=== PATIENT | female | born 1950 | race Caucasian/White ===

== ENCOUNTER 2025-04-21 15:17 | Emergency (ER) | payer OTHER, SELFPAY ==
[2025-04-21 15:17] VITALS: BP 148/62; PULSE 112; RESP 20; TEMP 37; O2SAT 95
--- NOTE | 2025-04-21 15:21 | ED.FEMALEGU ---
HPI - Female Genitourinary General Chief complaint: Urogenital-Female Stated complaint: blood in urine Time Seen by Provider: 04/21/25 15:20 Source: patient Mode of arrival: EMS Limitations: no limitations History of Present Illness HPI Narrative: Patient is a 74-year-old female with blood in her urine twice today and sent to the ER for evaluation. Patient has variable stage renal failure and they are monitoring for needs of dialysis. She has had right renal cancer and a spot on the left kidney. No fever or chills. No nausea vomiting or diarrhea. No chest pain or shortness of breath. No abdominal pain. No new back pains beyond her baseline back pain. She is bed-bound from chronic back pain and bilateral knee arthritis. Patient was recently treated for UTI. MD elicited complaint: UTI (Blood in her urine x2 today) Pertinent past history: recurrent UTIs Onset (ago): day(s) (One) Location of symptoms: none Severity: mild (None) Female Urogenital Radiation: Non-Radiating Severity scale (1-10): 1 (0) Quality of pain: other (None) Consistency: other (None) Vaginal discharge: none Vaginal bleeding: none Urinary symptoms: Hematuria Exacerbating factors: none Relieving factors: none Associated symptoms: denies other symptoms Treatment prior to arrival: none Sexual activity: No Patient : No Related Data Allergies Allergy/AdvReac Type Severity Reaction Status Date / Time Iodinated Contrast Media Allergy Intermediate Hives Verified 04/21/25 15:28 ciprofloxacin (From Cipro) Allergy Mild Rash Verified 04/21/25 15:28 fentanyl Allergy Mild Drowsy Verified 04/21/25 15:28 Penicillins Allergy Mild Rash Verified 04/21/25 15:28 Review of Systems Review of Systems: All systems reviewed & are unremarkable except as noted in HPI and below Constitutional: Constitutional: Reports no additional constitutional complaints Eyes: Eyes: Reports no additional eye complaints ENT: Reports system reviewed and no additional complaints, except as documented Cardiovascular: Cardiovascular: Reports no additional cardiovascular complaints Respiratory: Respiratory: Reports no additional respiratory complaints Gastrointestinal: Gastrointestinal: Reports no additional gastrointestinal complaints Genitourinary: Genitourinary: Reports no additional female genitourinary complaints Musculoskeletal: Musculoskeletal: Reports no additional musculoskeletal complaints Integumentary/Breasts: Skin/Breast: Reports system reviewed and no additional complaints, except as docu Neurologic: Reports system reviewed and no additional complaints, except as documented Psychiatric: Psychiatric: Reports no additional psychiatric complaints Endocrine: Endocrine: Reports no additional endocrine complaints Hematologic/Lymphatic: Hematologic/Lymphatic: Reports no additional hematologic/lymphatic complaints Allergic/Immunologic: Allergic/Immunologic: Reports no additional allergic/immunologic complaints Exam Const: General: healthy appearing Nutritional Appearance: well nourished Orientation/consciousness: patient oriented x3 Limitations: no limitations HENMT: Head: normal to inspection Ears: external ears normal Face/Nose/Sinus: Normal external nose present Eyes: Conjunctivae: conjunctivae normal Pupils: Equal, round and reactive pupils present EOM: EOMs intact bilaterally Neck: Neck: normal visual inspection, no lymphadenopathy and no meningeal signs Chest: Chest palpation & inspection: normal inspection of the chest Resp: Effort & Inspection: normal respiratory effort and not labored Auscultation: clear to auscultation bilaterally and no crackles Cardio: Rate: regular rate Rhythm: regular rhythm Heart sounds: no murmurs GI: Inspection: non-distended GI Palp: Yes Soft to palpation and No Tenderness to palpation present (GI) Auscultation: normal bowel sounds : General: Yes bladder normal to palpation Back/Spine/Pelvis: Back: no CVA tenderness Skin: General skin exam: normal color Rashes: no rashes Wounds: no wounds Neuro: General: patient oriented x3, moves all extremities and no meningeal signs Extrem: General: normal to inspection, no clubbing, cyanosis or edema and no pedal edema Psych: Appearance: grossly normal and well kempt Mental Status: mental status grossly normal Course Vital Signs Vital signs: Vital Signs Temperature 37.0 C 04/21/25 15:17 Pulse Rate 112 H 04/21/25 15:17 Respiratory Rate 04/21/25 15:17 Blood Pressure 148/62 H 04/21/25 15:17 Pulse Oximetry 95 04/21/25 15:17 Oxygen Delivery Room Air 04/21/25 15:17 Temperature 37.0 C 04/21/25 15:17 Pulse Rate 112 H 04/21/25 15:17 Respiratory Rate 20 04/21/25 15:17 Blood Pressure 148/62 H 04/21/25 15:17 Pulse Oximetry 95 04/21/25 15:17 Oxygen Delivery Room Air 04/21/25 15:17 [facility] Narrative Medical decision making narrative: Patient is a 74-year-old female bed-bound and having renal disease now urinary blood x2 today. Labs. UA. Rocephin IM. Patient has been on Keflex without problem in the past; she does not cross react with penicillins. Keflex. Pending blood cultures and urine culture. Differential Diagnosis Differential Diagnosis: UTI, renal disease nephropathy Lab Data MDM Lab Attestation statement: I personally reviewed the patient's lab results. Lab results narrative: Patient has chronic renal insufficiency and likely associated anemia. 04/21/25 15:58 04/21/25 15:58 Labs: Lab Results 04/21/25 Range/Units 15:58 WBC 8.1 (4.8-10.8) K/mm3 RBC 3.36 L (4.20-5.40) M/mm3 Hgb 8.9 L (11.7-13.8) g/dL Hct 30.3 L (35.0-42.0) % MCV 90.2 (78.0-102.0) fL MCH 26.5 L (27.0-31.0) pg MCHC 29.4 L (32-36) g/dL RDW 16.7 H (11.6-14.4) % Plt Count 196 (150-420) K/mm3 MPV 9.4 (9.2-11.8) fl Immature Gran % (Auto) 0.6 H (0.0-0.0) % Neut % (Auto) 74.6 H (50.0-70.0) % Lymph % (Auto) 13.9 L (18.0-42.0) % Reeves % (Auto) 6.2 (2.0-11.0) % Eos % (Auto) 4.3 (1.0-6.0) % Baso % (Auto) 0.4 (0.0-1.0) % Lymph # (Auto) 1.12 (1.10-4.50) K/mm3 Reeves # (Auto) 0.50 (0.10-0.90) K/mm3 Eos # (Auto) 0.35 (0.02-0.50) K/mm3 Baso # (Auto) 0.03 (0.00-0.10) K/mm3 Abs Immat Gran (auto) 0.05 H (0.00-0.00) K/mm3 Absolute Neuts (auto) 6.03 (1.70-7.20) K/mm3 Absolute Nucleated RBC 0.00 (0.00-0.00) K/mm3 Nucleated RBC % 0.0 (0-0.0) % Sodium 144 (137-145) mmol/L Potassium 4.4 (3.4-5.0) mmol/L Chloride 100 (98-107) mmol/L Carbon Dioxide 33 H (22-30) mmol/L Anion Gap 11 (4-12) mmol/L BUN 30 H (7-17) mg/dL Creatinine 1.67 H (0.7-1.0) mg/dL Estim Creat Clear Calc 32 ml/min Estimated GFR 30 L (59 - ) Glucose 120 H (65-110) mg/dL Calculated Osmolality 305 H (285-295) mOsm/kg Lactic Acid 1.6 (0.7-2.0) mmol/L Calcium 9.8 (8.4-10.2) mg/dL Total Bilirubin 0.4 (0.2-1.3) mg/dL AST 22 (14-36) U/L ALT 21 (6-35) U/L Alkaline Phosphatase 160 H (38-126) U/L Total Protein 7.8 (6.3-8.2) g/dL Albumin 4.0 (3.5-5.1) g/dL Urine Color Light yellow (Yellow) Urine Appearance Sl cloudy A (Clear) Urine pH 6.0 (5.0-8.0) Ur Specific [place] <= 1.005 L (1.010-1.020) Urine Protein Negative (Negative) Urine Glucose (UA) Negative (Negative) Urine Ketones Negative (Negative) Ur Blood (Man) 2+ H (Negative) Urine Nitrate Negative (Negative) Urine Bilirubin Negative (Negative) Urine Urobilinogen 0.2 (0.2-1.0) mg/dL Leukocyte Esterase Rfl 3+ H (Negative) DAVID/UL Urine RBC 3-5 H (0-2) /hpf Urine WBC >75 H (0-3) /hpf Ur Squamous Epith Cells Few (Few) /hpf Urine Bacteria 3+ (None) /hpf Discharge Plan Discharge Clinical Impression: Urinary tract infection Qualifiers: Urinary tract infection type: acute cystitis Hematuria presence: with hematuria Qualified Code(s): N30.01 - Acute cystitis with hematuria Hematuria Qualifiers: Hematuria type: gross Qualified Code(s): R31.0 - Gross hematuria Patient Disposition: Home Condition: Stable Instructions: Antibiotic Form, Urinary Tract Infection in Women (ED), Hematuria (ED) Patient Language: Swazi Prescriptions: New cephalexin 500 mg capsule 500 mg PO BID 7 Days Qty: 14 0RF Follow-up/Referrals: Stewart Blankenship MD [Primary Care Provider, Internal Medicine] Time of Disposition: 16:50
--- OUTSIDE RECORDS SUMMARY | 2025-04-21 15:21 | XMS_ITS ---
Author Organization [facility] [place] Care Team Providers Care Transmission Maintenance Supervisor Name Role Phone Brayden Botello Unavailable Unavailable Theodora Lee Unavailable Unavailable Stewart Blankenship Unavailable Unavailable ashtyn Rosario Unavailable Unavailable Zain Betancur Unavailable Unavailable Bolivar Daily Unavailable Unavailable Harsha Olivera Unavailable Unavailable Blas, Emily Unavailable Unavailable Andre Scruggs Unavailable Unavailable Blair Yanez Unavailable UnavailBrock Lynn Unavailable Unavail able Ramakrishna Grimaldo Unavailable Unavailable Vish Chacko Unavailable Unavailable DarrellSarkis camejo Unavailable Unavailable Nate Navarro Abdelhamadis Unavailable Unavailable Allergies and adverse reactions Code CodeSystem Substance Reaction Severity StartDate Concern Status Cipro Unknown 03/13/2018 active contrast Unknown 03/13/2018 active 4337 RXNORM fentaNYL Mild 02/06/2025 active 7984 RXNORM Penicillin Unknown 03/13/2018 active 8640 RXNORM predniSONE Hallucinations (code- [id number], SNOMED CT) Moderate 12/11/2024 active Care Team Name Role Address Phone Organization Dates Stewart Blankenship PCP [address] [place], [address], [place] (Office): : [facility] 04/14/2018 - present Brayden Steen [facility] [address] [place], [address], [place] (Office): : [facility] [place] 04/14/2018 - present Theodora Lee [address], [place], [facility], [facility] (Office): : [facility] [place] 04/14/2018 - present ashtyn Rosario [address] [place] [address], [facility], [place] (Office): : [facility] [place] 04/14/2018 - present Zain Dupont [facility] [address], [place], [facility], [facility] (Office): [facility] 04/14/2018 - present Bolivar Daily [address] [place] [address], [facility], [place] (Office): : [facility] 04/14/2018 - present Harsha Olivera [address], [facility], [facility] (Cell): [facility] 04/14/2018 - present Emily Odonnell [address] [place] [address], [facility], [facility] (Office): [facility] 04/14/2018 - present Andre Scruggs [address] [facility] [address], [place], [address], [place] (Office): [facility] [place] 04/14/2018 - present Blair Yanez [address], [place], [address], [facility] (Office): : [facility] [place] 04/14/2018 - present Brock Kim [address], [place] (Office): : : [facility] [place] 04/14/2018 - present Ramakrishna Grimaldo [address], [place], [address], [place] (Office): : [facility] [place] 04/14/2018 - present Vish Chacko [address], [facility], [facility] (Office): [facility] [place] 04/14/2018 - present Sarkis Ramírez [address] [place], [place], [facility], [facility] (Office): [facility] [place] 04/14/2018 - present Nate Navarro [facility] [address] [place] [address], [address], [place] (Office): : [facility] [place] 04/14/2018 - present Encounters Encounter Type Code Code System Description Performer Discharge Disposition Service Delivery Location Date Ambulatory Encounter CPT Code = [id number] Chronic obstructive pulmonary disease [facility] Address: [address] [place] [address]. 04/14 Ambulatory Encounter CPT Code = [id number] Ventricular tachycardia [facility] Address: [address] [place] [address]. 04/14 Ambulatory Encounter CPT Code = [id number] Supraventricular tachycardia [facility] Address: [address] [place] [address]. 04/14 Ambulatory Encounter CPT Code = [id number] Generalized anxiety disorder [facility] Address: [address] [place] [address]. 04/14 Ambulatory Encounter CPT Code = [id number] Chronic kidney disease due to type 2 diabetes mellitus [facility] Address: [address] [place] [address]. 04/14 Ambulatory Encounter CPT Code = [id number] Morbid obesity [facility] Address: [address] [place] [address]. 04/14 Ambulatory Encounter CPT Code = [id number] Chronic kidney disease stage 4 [facility] Address: [address] [place] [address]. 04/14 Ambulatory Encounter CPT Code = [id number] Moderate major depression, single episode [facility] Address: [address] [place] [address]. 04/14 Ambulatory Encounter CPT Code = [id number] Recurrent depression [facility] Address: [address] [place] [address]. 04/14 Ambulatory Encounter CPT Code = [id number] Idiopathic peripheral autonomic neuropathy [facility] Address: [address] [place] [address]. 04/14 Ambulatory Encounter CPT Code = [id number] Pure hypercholesterolem ia [facility] Address: [address] [place] [address]. 04/14 Ambulatory Encounter CPT Code = [id number] Essential hypertension [facility] Address: [address] [place] [address]. 04/14 Ambulatory Encounter CPT Code = [id number] Hypochondriasis [facility] Address: [address] [place] [address]. 04/14 Ambulatory Encounter CPT Code = [id number] Body mass index 40+ - severely obese [facility] Address: [address] [place] [address]. 04/14 Ambulatory Encounter CPT Code = [id number] Idiopathic osteoarthritis [facility] Address: [address] [place] [address]. 04/14 Ambulatory Encounter CPT Code = [id number] Spinal stenosis of thoracic region [facility] Address: [address] [place] [address]. 04/14 Ambulatory Encounter CPT Code = [id number] Malingering [facility] Address: [address] [place] [address]. 04/14 Ambulatory Encounter CPT Code = [id number] Sedative, hypnotic AND/OR anxiolytic-related disorder [facility] Address: [address] 04/14 Ambulatory Encounter CPT Code = [id number] [facility] Address: [facility] [place] [address] 04/14 Ambulatory Encounter CPT Code = [id number] Urinary tract infectious disease [facility] Address: [facility] [place] [address] 04/14 Ambulatory Encounter CPT Code = [id number] Nausea and vomiting [facility] Address: [facility] [place] [address] 04/14 Ambulatory Encounter CPT Code = [id number] Degeneration of lumbar intervertebral disc [facility] Address: [address] [place], [place] [address] [address] 04/14 Ambulatory Encounter CPT Code = [id number] Imaging of lung [facility] Address: [facility] [place] [address] 04/14 Ambulatory Encounter CPT Code = [id number] Solitary nodule of lung [facility] Address: [facility] [place] [address] 04/14 Ambulatory Encounter CPT Code = [id number] Dependence on supplemental oxygen [facility] Address: [facility] [place] [address] 04/14 Ambulatory Encounter CPT Code = [id number] Disorder of bone [facility] Address: [facility] [place] [address] 04/14 Ambulatory Encounter CPT Code = [id number] Body mass index 30+ - obesity [facility] Address: [address] [place], [place] [address] [address] 04/14 Ambulatory Encounter CPT Code = [id number] Localized, primary osteoarthritis of the shoulder region [facility] Address: [address] [place], [place] [address] [address] 04/14 Ambulatory Encounter CPT Code = [id number] Localized, primary osteoarthritis of the shoulder region [facility] Address: [address] [place], [place] [address] 04/14 Ambulatory Encounter CPT Code = [id number] Late effect of fracture of thoracic vertebra [facility] Address: [address] [place], [place] [address] 04/14 Ambulatory Encounter CPT Code = [id number] Thoracic spondylosis without myelopathy [facility] Address: [address] [place], [place] [address] 04/14 Ambulatory Encounter CPT Code = [id number] Degeneration of thoracic intervertebral disc [facility] Address: [address] [place], [place] [address] [address] 04/14 Ambulatory Encounter CPT Code = [id number] Urinary tract infectious disease [facility] Address: [address] [place], [place] [address] 04/14 Ambulatory Encounter CPT Code = [id number] Long-term current use of insulin [facility] Address: [facility] [place] [address] 04/14 Ambulatory Encounter CPT Code = [id number] Iron deficiency anemia [facility] Address: [facility] [place] [address] , [place]. 04/14 Ambulatory Encounter CPT Code = [id number] [place] [facility]ie [facility] Address: [facility] [place] [address] 04/14 Ambulatory Encounter CPT Code = [id number] Muscle weakness Cathie [facility] Address: [address] [place], [place] [address] [address] 04/14 Ambulatory Encounter CPT Code = [id number] Acute bronchitis [facility] Address: [address] [place], [place] [address] [address] 04/14 Ambulatory Encounter CPT Code = [id number] Chronic obstructive pulmonary disease [facility] Address: [address] [place], [place] [address] [address] 04/14 Ambulatory Encounter CPT Code = [id number] Muscle atrophy [facility] Address: [facility] [place] [address] 04/14 Ambulatory Encounter CPT Code = [id number] Abnormal posture Cathie [facility] Address: [facility] [place] [address] 04/14 Ambulatory Encounter CPT Code = [id number] Muscle weakness Cathie [facility] Address: [facility] [place] [address] 04/14 Ambulatory Encounter CPT Code = [id number] Muscle atrophy [facility] Address: [facility] [place] [address] 04/14 Ambulatory Encounter CPT Code = [id number] Complication due to diabetes mellitus [facility] Address: [facility] [place] [address] 04/14 Ambulatory Encounter CPT Code = [id number] Cellulitis of right lower limb Cathie [facility] Address: [facility] [place] [address] 04/14 Ambulatory Encounter CPT Code = [id number] Muscle strain [facility] Address: [facility] [place] [address] 04/14 Ambulatory Encounter CPT Code = [id number] Abnormal posture Cathie [facility] Address: [facility] [place] [address] 04/14 Ambulatory Encounter CPT Code = [id number] Abnormal posture [facility] Address: [facility] [place] [address] 04/14 Ambulatory Encounter CPT Code = [address] Depressive disorder [facility] Address: [facility] [place] [address] 04/14 Ambulatory Encounter CPT Code = [id number] Pneumonia Cathie [facility] Address: [facility] [place] [address] 04/14 Ambulatory Encounter CPT Code = [id number] Abnormal posture Cathie [facility] Address: [facility] [place] [address] 04/14 Ambulatory Encounter CPT Code = [id number] Muscle weakness Cathie [facility] Address: [facility] [place] [address] 04/14 Ambulatory Encounter CPT Code = [id number] Lobar pneumonia Cathie [facility] Address: [facility] [place] [address] 04/14 Ambulatory Encounter CPT Code = [id number] Abnormal posture Cathie Johnson [facility] Address: [address] [address] 04/14 Ambulatory Encounter CPT Code = [id number] Muscle atrophy Cathie [facility] Address: [address] [address] 04/14 Ambulatory Encounter CPT Code = [id number] Abscess of limb Cathie [facility] Address: [facility] [place] [address] 04/14 Ambulatory Encounter CPT Code = [id number] Muscle atrophy Cathie [facility] Address: [facility] [place] [address] 04/14 Goals Section Goals Description Status Target Date Marleny will verbalize unde rstanding of consequences of non-compliance through review date Active 05/27/2025 Marleny wishes will be honored thru next review Active 05/27/2025 Marleny to receive rosary and communion in room with volunteers. Active 05/27/2025 Marleny will be encouraged to adhere to prescribed CCHO diet to help avoid complications r/t DX of Diabetes. Active Marleny will be free of any discomfort or adverse side effects of antibiotic therapy through the review date. Active 05/27/2025 Marleny will be free of any discomfort or adverse side effects of diuretic therapy through the next review date Active 05/27/19 Marleny will be free of any discomfort or adverse side effects of diuretic therapy through the review date. Active 05/27/2025 Marleny will comply with ca re to the best of her ability at least daily through the next review date Active 05/27/2025 Marleny will continue to ma intain optimal status and quality of life within limitations imposed by neurological deficits through review date. Active 05/27/2025 Marleny will decrease bladd er incontinence from 10 to 7 times per week Active 05/27/2025 Marleny will express satisf action with type of activities and level of activity involvement when asked through the review date. Active 05/27/2025 Marleny will have intact skin through next revi ew Active 05/27/2025 Marleny will have no problems chewing through r warren. Active 05/27/2025 Marleny will maintain accep table quality of life through next review Active 05/27/2025 Marleny will maintain optim al quality of life within limitation imposed by visual function through review date. Active 2025 Marleny will not develop fu rther complications from weight gain such as skin breakdown, ineffective breathing pattern, altered cardiac output, impaired mobility through review date. Active 05/27/2025 Marleny will participate in activities she find s enjoyable Active 05/27/2025 Marleny will participate in independent daily activities of her choosing and monthly [place] through the next review. Marleny will be offered monthly [employer] [place]. Active 2025 Marleny will receive servic es as directed per screening requirements through the next review Active 05/27/2025 Marleny will remain free fr om any adverse side effects from antidepressant use through next review Active 05/27/2025 Marleny will remain free of potential adverse reactions from medication through next review Active 05/27/2025 Marleny will remain free of s/sx of distress, symptoms of depression, anxiety or sad mood by/through review date. Active 05/27/2025 Marleny will verbalize adeq uate pain relief of pain or ability to cope with incompletely relieved pain through next review Active 05/27/2025 Marleny will voice feelings of loss of control and comply with care with encouragement. Active 05/27/2025 Attend resident [place] once month. Active 05/27/2025 Decrease risk of fall and/or minimize injuries from falls X 90 days Active 05/27/2025 Minimize risk for skin breakdown through next re view date. Active 05/27/2025 Minimize/manage risk for falls Active 0 05/27/2025 Resident will be clean, dry, well-groomed throug h review date Active 05/27/2025 Resident will comply with staff redirection thru next review. Active 05/27/2025 Resident will maintain safety thru next review. Active 05/27/2025 Will adjust to facility as e videnced by coming out of room thru next review Active 05/27/2025 Functional Status Code Name Recorded Time Value Entered By Bathing 04/20/2025 Not assessed hgarrison Chair/dae-po-rokth transfer 04/21/2025 Dependent aondo Eating 04/21/2025 Supervision or t ouching assistance aondo Feeding or Eating 04/21/2025 Supervision aondo Indicate the type of wheelchair or scooter used 04/21/2025 Not assessed aondo Lying to sitting on side of bed 04/21/2025 Not assessed aondo Oral hygiene 04/21/2025 Setup or clean-up assistance aondo Personal hygiene 04/21/2025 Dependent aondo Roll left and right 04/21/2025 Dependent aondo Shower/bathe self 04/20/2025 Not assessed hgarrison Sit to lying 04/21/2025 Not assessed aondo Sit to stand 04/21/2025 Not assessed aondo Toilet transfer 04/21/2025 Not assessed aondo Toileting hygiene 04/21/2025 Dependent aondo Wheel 150 feet 04/21/2025 Not assessed aondo Immunizations Immunization Status Vaccine Details Vaccine Code CodeSystem Date Notes Influenza completed Influenza, high-dose, split virus, quadrivalent, injectable, preservative free lotNumber: [id number] expiry: 10/22/2025 Mfg: Fluzone Given Left Deltoid intramuscularly 197 CVX created date: 5 consent date: 5 administe red date: 5 Influenza completed Influenza, high-dose, split virus, quadrivalent, injectable, preservative free lotNumber: [id number] expiry: 10/23/2023 Mfg: SANOFI PASTEUR Given 0.5 ml Left Deltoid intradermally 197 CVX created date: 3 consent date: 3 administe red date: 3 Influenza completed Influenza, high-dose, split virus, quadrivalent, injectable, preservative free lotNumber: [id number] expiry: 10/22/2022 Mfg: SAN0FI PASTEUR Given 0.5 ml Left Deltoid intramuscularly 197 CVX created date: 2 consent date: 2 administe red date: 2 Administered by Cathie Johnson RNLNHA Influenza completed Influenza, high-dose, split virus, quadrivalent, injectable, preservative free lotNumber: [id number] expiry: 10/22/2021 Mfg: sanofi pasteur Given 0.5 ml Left Deltoid intramuscularly 197 CVX created date: 1 consent date: 1 administe red date: 1 Educated by Violet Land on 02/09/2021 Influenza completed Influenza, high-dose, split virus, quadrivalent, injectable, preservative free lotNumber: [id number] expiry: 10/22/2020 Mfg: FLUZONE QUAD Given 0.5 ml Right Deltoid intramuscularly 197 CVX created date: 0 consent date: 0 administe red date: 0 Influenza completed Influenza, high-dose, split virus, quadrivalent, injectable, preservative free lotNumber: [id number] expiry: 10/23/2019 Mfg: Sequirs Given 0.5 ml Left Deltoid intramuscularly 197 CVX created date: 9 consent date: 9 administe red date: 9 TB 1 Step Mantoux (PPD) completed tuberculin skin test; unspecified formulation lotNumber: [id number] expiry: 03/31/2020 Given 0.1 ml Left Forearm subcutaneously 98 CVX created date: 8 consent date: 8 administe red date: 8 TB 1 Step Mantoux (PPD) completed tuberculin skin test; unspecified formulation lotNumber: [id number] expiry: 03/31/2020 Mfg: Sanofi Pasteur [employer] Given 0.1 ml Right Forearm intradermally 98 CVX created date: 8 consent date: 8 administe red date: 8 Educated by Carmita Almaguer on 03/14/2018 TB 2 Step Mantoux Skin Test completed tuberculin skin test; unspecified formulation lotNumber: [id number] expiry: 06/08/2020 Mfg: mantoux Given 0.1 ml Right Forearm intradermally Step 2 of Multi-step with next step required 98 CVX created date: 9 consent date: 9 administe red date: 9 TB 2 Step Mantoux Skin Test completed tuberculin skin test; unspecified formulation lotNumber: [id number] expiry: 03/31/2020 Mfg: Sanofi Pasteur [employer] Given 0.1 ml Right Forearm intradermally Step 1 of Multi-step with next step required 98 CVX created date: 8 consent date: 8 administe red date: 8 Educated by Carmita Almaguer on 03/28/2018 Pneumococcal polysaccharide vaccine (PPSV23) completed pneumococcal polysaccharide vaccine, 23 valent 33 CVX created date: 8 administe red date: 8 COVID Pre-Vaccine Consent new created date: 0 consent date: 0 SARS-COV-2 (COVID-19) completed lotNumber: [id number] Given Right Deltoid intramuscularly Step 2 of Multi-step with next step required created date: 1 consent date: 1 administe red date: 1 [facility] came and gave the vaccine SARS-COV-2 (COVID-19) completed Given intramuscularly Step 1 of Multi-step with next step required created date: 1 consent date: 1 administe red date: 1 [facility] here and administered. Tdap completed tetanus toxoid, reduced diphtheria toxoid, and acellular pertussis vaccine, adsorbed lotNumber: [id number] expiry: 05/15/2021 Given 0.5 ml Right Thigh intramuscularly 115 CVX created date: 1 consent date: 1 administe red date: 1 SARS-COV-2 (COVID-19) - Booster completed SARS-COV-2 (COVID-19) vaccine, mRNA, spike protein, LNP, preservative free, 100 mcg/0.5mL dose or 50 mcg/0.25mL dose lotNumber: [id number] expiry: 06/22/2021 Mfg: pfizer Given 0.3 Left Deltoid intramuscularly 207 CVX created date: 1 consent date: 1 administe red date: 1 Administered by Cathie CHEN SARS-COV-2 (COVID-19) - Pfizer Booster completed SARS-COV-2 (COVID-19) vaccine, mRNA, spike protein, LNP, preservative free, 30 mcg/0.3mL dose lotNumber: [id number] expiry: 12/29/2021 Mfg: pfizer Given 0.3 ml Left Deltoid intramuscularly 208 CVX created date: 2 consent date: 2 administe red date: 2 Administered by Cathie CHEN Prevnar 20 completed Pneumococcal conjugate vaccine 20-valent (PCV20), polysaccharide [id number] conjugate, adjuvant, preservative free lotNumber: [id number] expiry: 12/23/2022 Given 0.5 ml Right Deltoid intramuscularly 216 CVX created date: 3 consent date: 3 administe red date: 3 SARS-COV2 (COVID-19 w [employer]) Pfizer Booster completed SARS-COV-2 (COVID-19) vaccine, mRNA, spike protein, LNP, bivalent, preservative free, 30 mcg/0.3 mL dose, suzie-sucrose formulation lotNumber: [id number] expiry: 05/24/2022 Mfg: pfizer bivalent Given 0.3 ml Left Deltoid intramuscularly 300 CVX created date: 2 consent date: 2 administe red date: 2 Administered by Ctahie CHEN SARS-COV-2 (COVID-19) Updated monovalent completed SARS-COV-2 (COVID-19) vaccine, mRNA, spike protein, LNP, preservative free, suzie-sucrose, 30 mcg/0.3 mL dose lotNumber: [id number] expiry: 08/11/2024 Mfg: pfizer booster Given 0.5 ml Left Deltoid intramuscularly 309 CVX created date: 4 consent date: 4 administe red date: 4 SARS-COV-2 (COVID-19) Updated monovalent completed SARS-COV-2 (COVID-19) vaccine, mRNA, spike protein, LNP, preservative free, suzie-sucrose, 30 mcg/0.3 mL dose lotNumber: [id number] expiry: 09/23/2023 Mfg: Comirnaty Given 0.5 ml Left Deltoid intramuscularly 309 CVX created date: 3 consent date: 3 administe red date: 3 RSV completed Respiratory syncytial virus (RSV), vaccine, recombinant, protein subunit RSV prefusion F, adjuvant reconstituted, 0.5 mL, preservative free Mfg: arexvy Given 0.5 ml intramuscularly 303 CVX created date: 4 consent date: 4 administe red date: 4 Influenza vaccine, quadrivalent, adjuvanted completed Influenza, adjuvanted, inactivated, quadrivalent, injectable, preservative free lotNumber: [id number] expiry: 10/22/2024 Mfg: [employer] Given 0.5 ml Left Deltoid intramuscularly 205 CVX created date: 4 consent date: 4 administe red date: 4 Medications Section Medication Name Status Code CodeSystem Dose Route Frequency Admin Type Sig Text Start Date End Date Indication Loradamed Oral Tablet 10 MG active 58963 26 RXNORM 1 table t Oral in the morning Routin e Give 1 table t by mouth in the morni ng for aller gies 2024 - allergies Insulin Glargine Subcutaneou s Solution Pen-injecto r 100 UNIT/ML active 64019 0 RXNORM 55 unit Subcut aneous at bedtime Routin e Injec t 55 unit subcu taneo usly at bedti me relat ed to 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 22) 2024 - - Potassium Chloride ER Oral Tablet Extended Release active 80 mEq Oral two times a day Routin e Give 80 mEq by mouth two times a day relat ed to OTHER VENTR ICULA R SUKUMAR Miller (I47. 29) 2024 - - Zinc Gluconate Oral Tablet 50 MG active 21471 7 RXNORM 1 table t Oral in the morning Routin e Give 1 table [facility] 2024 - supplement Fluocinonid e External Cream 0.05 % active 79964 6 RXNORM n/a n/a Topica l every day shift Routin e Apply to scalp topic ally every day shift for derma titis 2024 - dermatitis Docusate Sodium Oral Capsule 100 MG active 04887 05 RXNORM 4 capsu le Oral at bedtime Routin e Give 4 capsu le by mouth at bedti me for const ipati on 2024 - constipatio n Protonix Oral Tablet Delayed Release 40 MG active 73176 0 RXNORM 1 table t Oral in the morning Routin e Give 1 table t 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 9) 2024 - - Lidocaine-T ransparent Dressing External Kit 4 % active 68236 93 RXNORM n/a n/a Topica l at bedtime Routin e Apply to L knee topic ally at bedti me for knee pain 2024 - knee pain Benzonatate Oral Capsule 100 MG active 15660 7 RXNORM 1 capsu le Oral as needed PRN Give 1 capsu le by mouth every 8 hours as neede d for cough 2024 - cough Abilify Oral Tablet 10 MG active 26516 7 RXNORM 1 table t Oral in the morning Routin e Give 1 table t by mouth in the [facility] to GENER JOSELYN D ANXIE TY DISOR AILYN (F41. 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 Routin e Apply to vagin a topic ally every manufacturing supervisor 2nd shift for acne vulga ris 2024 - acne vulgaris traZODone HCl Oral Tablet 50 MG active 24741 7 RXNORM 1 table t Oral at bedtime Routin e Give 1 table t by mouth at bedti vt for insom elias 2024 - insomnia Vitamin D3 Oral Tablet 25 MCG active 1 table t Oral in the morning Routin e Give 1 table t by mouth in the [facility] for suppl ement 2024 - supplement Saccharomyc es boulardii Oral Capsule active 250 mg Oral two times a day Routin e Give 250 mg by mouth two times a day for probi otic 2024 - probiotic Methocarbam ol Oral Tablet 750 MG active 67229 4 RXNORM 1 table t Oral as needed PRN Give 1 table t by mouth every 8 hours as neede d for muscl e spasm s 2024 - muscle spasms Trelegy Ellipta Inhalation Aerosol Powder Breath Activated 100-62.5-25 MCG/ACT active 78754 44 RXNORM 1 inhal ation Inhala tion in the morning Routin e 1 inhal ation inhal e orall y in the [facility] for SOB 2024 - SOB Ondansetron HCl Oral Tablet 4 MG active 2 RXNORM 1 table t Oral as needed PRN Give 1 table t by mouth every 6 hours as neede d for nause a/vom iting 2024 - nausea/vomi ting CeleXA Oral Tablet 10 MG active 88617 1 RXNORM 1 table t Oral in the morning Routin e Give 1 table t by mouth in the [facility] relat ed to OTHER RECUR RENT DEPRE SSIVE DISOR DERS (F33. 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) 2024 - - Magnesium Oxide -Mg Supplement Oral Tablet 200 MG active 84006 3 RXNORM 1 table t Oral two times a day Routin e Give 1 table t by mouth two times a day for suppl ement 2024 - supplement Vitamin C Oral Tablet 1000 MG active 1.5 table t Oral in the morning Routin e Give 1.5 table t by mouth in the [facility] for suppl ement 2024 - supplement Insulin Aspart Injection Solution 100 UNIT/ML active 62569 0 RXNORM 20 unit Subcut aneous before meals Routin e Injec t 20 unit subcu taneo usly befor e meals relat ed to 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 22) 2024 - - Montelukast Sodium Oral Tablet 10 MG aborted 4 RXNORM 1 table t Oral in the morning Routin e Give 1 table t by mouth in the [facility] for asthm a 04/02 asthma Albuterol Sulfate HFA Inhalation Aerosol Solution 108 (90 Base) MCG/ACT active 27861 2 RXNORM 2 puff Inhala tion two times a day Routin e 2 puff inhal e orall y two times a day for SOB AND 1 puff inhal e orall y every 4 hours as neede d for SOB 2024 - SOB 06764 2 RXNORM 1 puff Inhala tion as needed PRN 2 puff inhal e orall y two times a day for SOB AND 1 puff inhal e orall y every 4 hours as neede d for SOB 2024 - SOB Macrobid Oral Capsule [place] [address] 2 RXNORM 100 mg Oral two times a day Routin e Give 100 mg by mouth two times a day for UTI for 10 Days 03/29 UTI MiraLax Oral Packet 17 GM aborted 64947 5 RXNORM 17 gram Oral as needed PRN Give 17 gram by mouth every 24 hours as neede d for Const ipati on 04/03 Constipatio n Acetaminoph en Tablet [place] [address] 2 RXNORM 2 table t Oral as needed PRN Give 2 table t by mouth every 4 hours as neede d for pain for 7 Days 03/31 pain Nitrofurant oin Macrocrysta l Oral Capsule complet ed 100 mg Oral two times a day Routin e Give 100 mg by mouth two times a day for UTI for 5 Days 04/04 UTI Montelukast Sodium Oral Tablet 10 MG active 4 RXNORM 1 table t Oral at bedtime Routin e Give 1 table t by mouth at bedti me for asthm a 2024 - asthma MiraLax Oral Packet 17 GM aborted 29932 5 RXNORM 17 gram Oral as needed PRN Give 17 gram by mouth as neede d for to avoid const ipati on 04/04 to avoid constipatio n MiraLax Oral Packet 17 GM active 46627 5 RXNORM 17 gram Oral in the morning Routin e Give 17 gram by mouth in the morni ng for Const ipati on 2024 - Constipatio n Fleet Enema Rectal Enema active 1 dose Rectal as needed PRN Inser t 1 dose recta lly every 24 hours as neede d for const ipati on 2024 - constipatio n Lidocaine External Patch active n/a n/a Topica l as needed PRN Apply to [facility] [place] topic ally every 24 hours as neede d for pain may be on up to 12 hours in 24 Hour perio d 2024 - pain Acetaminoph en Tablet 325 MG active 30427 2 RXNORM 2 table t Oral as needed PRN Give 2 table t by mouth every 4 hours as neede d for pain no more than 3 grams in any 24 hour perio d 2024 - pain Cranberry Oral Tablet 500 MG active 1 table t Oral in the morning Routin e Give 1 table t by mouth in the morni ng for suppl ement 2024 - supplement Mental Status Section Date Assessment Total Score Description 02/25/2025 BIMS 15 cognitively int act CAM 0 No delirium ind icated PHQ-9 11 moderate depres norma 01/30/2025 CAM 0 No delirium ind icated Insurance Providers Coverage Status Coverage Type Relationship to Subscriber Member Identifier Subscriber Identifier Group Identifier Payer Identifier and Other information 05/26/2021 Code: 2 Code System OID:[id number]. [id number] 1.5 Code System Name: Source of Payment Typology (PHDSC) Display: Medicaid Translation: Code: 48 Code System: OID:[id number]. 1.306961.6.25 5.1336 Code System Name: Insurance Type Code ([id number]) Display Name: Medicaid Code: SELF Code System Name: HL7 RoleCode Code System OID:[id number]. 1.025777.5.11 1 Display Name: Self [id number] Root: [id number] [id number] Payer Name: [facility] Address: [address] [address] City: [place] State: [place] Country: [place] Telecom: [phone] Code: 81 Code System OID:[id number]. 1.044507.3.22 1.5 Code System Name: Source of Payment Typology (PHDSC) Display: Self Pay Translation: Code: 09 Code System: OID:2.16.840. 1.768019.6. Code System Name: Insurance Type Code ([id number]) Display Name: Self-pay 05/26/2021 Code: 51 Code System OID:2.16.840. 1.801646.3.22 1.5 Code System Name: Source of Payment Typology (PHDSC) Display: Managed Care (Private) Translation: Code: HM Code System: OID:2.16.840. 1.100694.6. Code System Name: Insurance Type Code ([id number]) Display Name: Health Maintenance Organization (HMO) Plan Code: SELF Code System Name: HL7 RoleCode Code System OID:2.16.840. 1.137745.5.11 1 Display Name: Self [id number] Root: [id number] [id number] Payer Name: [facility] Address: [address] [address] City: [place] State: [place] Country: [facility] Telecom: [phone] Code: 349 Code System OID:2.16.840. 1.188902.3.22 1.5 Code System Name: Source of Payment Typology (PHDSC) Display: Other Translation: Code: C1 Code System: OID:2.16.840. 1.022966.6. Code System Name: Insurance Type Code ([id number]) Display Name: Commercial Insurance 01/22/2025 Code: 1 Code System OID:2.16.840. 1.925088.3.22 1.5 Code System Name: Source of Payment Typology (PHDSC) Display: Medicare Translation: Code: MB Code System: OID:2.16.840. 1.145504.6. Code System Name: Insurance Type Code ([id number]) Display Name: Medicare Part B Code: SELF Code System Name: HL7 RoleCode Code System OID:2.16.840. 1.579391.5.11 1 Display Name: Self [id number] Root: [id number] f2d Payer Name: [facility] Address: [address] [facility] City: [place] State: [place] Country: [place] Telecom: [phone] Plan of Treatment Section Interventions Intervention Code Code System Display Name Proposed D ate Problems Problem # Description Date of onset Resolved Date Code CodeSystem Concern Status 1 MAJOR DEPRESSIVE DISORDER, SINGLE EPISODE, MODERATE [address] active 2 INSOMNIA, UNSPECIFIED [address] active 3 MALINGERER [CONSCIOUS SIMULATION] [address] active 4 URINARY TRACT INFECTION, SITE NOT SPECIFIED 025 12/24/[address] completed 5 SEDATIVE, 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 [address] active 6 SPINAL STENOSIS, THORACIC REGION [address] active 7 HYPOCHONDRIASIS [address] active 8 NAUSEA WITH VOMITING, UNSPECIFIED 025 07/11/[address] completed 9 OTHER INTERVERTEBRAL DISC DEGENERATION, LUMBAR REGION WITH DISCOGENIC BACK PAIN AND LOWER EXTREMITY PAIN [address] active 10 OTHER NONSPECIFIC ABNORMAL FINDING OF LUNG FIELD [address] active 11 SOLITARY PULMONARY NODULE [address] active 12 DEPENDENCE ON SUPPLEMENTAL OXYGEN [address] active 13 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 [address] active 14 OTHER SPECIFIED DISORDERS OF BONE DENSITY AND STRUCTURE, MULTIPLE SITES [address] active 15 OTHER VENTRICULAR TACHYCARDIA [address] active 16 CUTANEOUS ABSCESS OF LIMB, UNSPECIFIED 023 02/24/[address] completed 17 FURUNCLE OF LIMB, UNSPECIFIED 023 02/24/[address] completed 18 BODY MASS INDEX [BMI] 38.0-38.9, ADULT [address] active 19 PURE HYPERCHOLESTEROLEM IA, UNSPECIFIED [address] active 20 OTHER INTERVERTEBRAL DISC DEGENERATION, THORACIC REGION [address] active 21 PRIMARY OSTEOARTHRITIS, LEFT SHOULDER [address] active 22 PRIMARY OSTEOARTHRITIS, RIGHT SHOULDER [address] active 23 SPONDYLOSIS WITHOUT MYELOPATHY OR RADICULOPATHY, THORACIC REGION [address] active 24 WEDGE COMPRESSION FRACTURE OF UNSPECIFIED THORACIC VERTEBRA, SEQUELA [address] active 25 PERSONAL HISTORY OF URINARY (TRACT) INFECTIONS [address] active 26 ABNORMAL POSTURE 022 06/09/[address] completed 27 DEPRESSION, UNSPECIFIED 021 06/09/[address] completed 28 PNEUMONIA, UNSPECIFIED ORGANISM 021 04/01/[address] completed 29 ABNORMAL POSTURE 021 01/01/[address] completed 30 MUSCLE WEAKNESS (GENERALIZED) 021 01/01/[address] completed 31 BODY MASS INDEX [BMI]40.0-44.9, ADULT 020 12/02/[address] completed 32 ABNORMAL POSTURE 020 10/05/[address] completed 33 MUSCLE WASTING AND ATROPHY, NOT ELSEWHERE CLASSIFIED, UNSPECIFIED SITE 020 10/05/[address] completed 34 MUSCLE WEAKNESS (GENERALIZED) 020 10/05/[address] completed 35 TYPE 2 DIABETES MELLITUS WITH DIABETIC CHRONIC KIDNEY DISEASE [address] active 36 CHRONIC KIDNEY DISEASE, STAGE 4 (SEVERE) [address] active 37 CHRONIC OBSTRUCTIVE PULMONARY DISEASE, UNSPECIFIED [address] active 38 LOBAR PNEUMONIA, UNSPECIFIED ORGANISM 10/10/[address] completed 39 LONG-TERM (CURRENT) USE OF INSULIN 009420973 SNOMED CT active 40 OTHER IRON DEFICIENCY ANEMIAS 67019213 SNOMED CT active 41 SUPRAVENTRICULAR TACHYCARDIA 01/23/[address] completed 42 MUSCLE WASTING AND ATROPHY, NOT ELSEWHERE CLASSIFIED, UNSPECIFIED SITE 04/10/[address] completed 43 ABNORMAL POSTURE 03/06/[address] completed 44 MUSCLE WASTING AND ATROPHY, NOT ELSEWHERE CLASSIFIED, UNSPECIFIED SITE 03/06/[address] completed 45 ACUTE BRONCHITIS DUE TO OTHER SPECIFIED ORGANISMS 07/18/[address] completed 46 ABNORMAL POSTURE 07/25/[address] completed 47 MUSCLE WASTING AND ATROPHY, NOT ELSEWHERE CLASSIFIED, UNSPECIFIED SITE 07/18/[address] completed 48 MUSCLE WEAKNESS (GENERALIZED) 07/18/[address] completed 49 CELLULITIS OF RIGHT LOWER LIMB 07/18/[address] completed 50 CHRONIC OBSTRUCTIVE PULMONARY DISEASE, UNSPECIFIED 07/04/[address] completed 51 ESSENTIAL (PRIMARY) HYPERTENSION 89016470 SNOMED CT active 52 GENERALIZED ANXIETY DISORDER 89081891 SNOMED CT active 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 45943299 SNOMED CT active 54 OTHER RECURRENT DEPRESSIVE DISORDERS 02/08/[address] completed 55 PRIMARY GENERALIZED (OSTEO)ARTHRITIS 938991014 SNOMED CT active 56 STRAIN OF MUSCLE, FASCIA AND TENDON OF LOWER BACK, SUBSEQUENT ENCOUNTER 07/18/[address] completed 57 TYPE 2 DIABETES MELLITUS WITH UNSPECIFIED COMPLICATIONS 07/04/[address] completed Reason for Referral No Reasons for Referral Entered Diagnostic Results Laboratory Test Results Code Code System Date Test Observation Result Interpretation Reference Range Status Notes 123-9 9999- 9 LOINC 03/23 [facility] [place] Completed Result for: RONNIE MELENDEZ ( [birth year] 49, F) 123-9 9999- 9 LOINC 03/16 [facility] - Normal Final TESTING PERFORM ED BY [facility] [address] [place] [address] [phone] 123-9 9999- 9 LOINC 04/14 [facility] / CULTURE , URINE Completed Result for: RONNIE MELENDEZ ( [birth year] 49, F) 123-9 9999- 9 LOINC 04/11 CULTURE, URINE - Normal Final (Final) Source: URINE >100,00 0 CFU/mL MIXED PATH, PROBABL E CONTAMI NATION GREATER THAN OR EQUAL TO 3 ORGANIS MS ISOLATE D. PROBABL E CONTAMI NANT. CONTACT THE LABORAT ORY WITHIN 48 HOURS IF [place]ENTIF [place]ATION [place]. [address] -3 LOINC 04/14 URINALY SIS Completed Result for: RONNIE MELENDEZ ( [birth year] 49, F) 5778- 6 LOINC 04/11 COLOR - Normal YELLOW Final 08327 -9 LOINC 04/11 CLARITY - Normal CLEAR Final 2349- 9 LOINC 04/11 GLUCOSE,UR - Normal NORMAL Final 1977- 8 LOINC 04/11 BILIRUBIN,UR - Normal NEGATIVE Final 85737 -6 LOINC 04/11 KETONES,UR - Normal NEGATIVE Final 2965- 2 LOINC 04/11 SPECIFIC GRAVITY - Normal 1.001-1.03 0 Final 5794- 3 LOINC 04/11 BLOOD,UR - Normal NEGATIVE Final 2756- 5 LOINC 04/11 PH, URINE - Normal 5.0-8.5 Final 77870 -5 LOINC 04/11 PROTEIN,UR - Normal NEGATIVE Final 5818- 0 LOINC 04/11 UROBILINOGEN, UR - Normal NEGATIVE Final 5802- 4 LOINC 04/11 NITRITE,UR - Abnormal NEGATIVE Final 5799- 2 [facility] 04/11 LEUKOCYTES,UR - Abnormal NEGATIVE Final 96528 -1 [facility] 04/11 RBC,UR Value: 0-2 Units: /HPF Normal <6 Final 5821- 4 [facility] 04/11 WBC,UR Value: 6-20 Units: /HPF Abnormal <6 Final 87782 -7 [facility] 04/11 EPITHELIAL CELL - Abnormal NEGATIVE Final 66996 -4 [facility] 04/11 BACTERIA,UR - Abnormal NEGATIVE Final 28239 -9 [facility] 04/11 HYALINE CASTS - Abnormal NEGATIVE Final 40729 -6 [facility] 04/11 BUDDING YEAST - Abnormal ABSENT Final 123-9 9999- 9 [facility] 04/11 TRANS EPITHELIAL CELLS Value: FEW Units: /[HPF] Abnormal NEGATIVE Final 49155 -3 [facility] 04/11 WBC CLUMPS - Abnormal ABSENT Final 28756 -6 [facility] 04/16 BASIC MET PNL INCL GFR (BMP) Completed Result for: RONNIE MELENDEZ ( [birth year] 49, F) 2345- 7 [facility] 04/16 GLUCOSE Value: 192 Units: mg/dL High Final GLUCOSE , FASTING 65-99 mg/dL GLUCOS E, NON-FAS TING 65-125 mg/dL 2951- 2 [facility] 04/16 SODIUM Value: 141 Units: mEq/L Normal 136-145 Final 2823- 3 [facility] 04/16 POTASSIUM Value: 4.3 Units: mEq/L Normal 3.5-5.3 Final 2074- 0 [facility] 04/16 CHLORIDE Value: 102 Units: mEq/L Normal 98-110 Final 2027- 9 [facility] 04/16 CARBON DIOXIDE (CO2) Value: 30 Units: mEq/L Normal 21-33 Final 3094- 0 [facility] 04/16 BUN (UREA NITROGEN) Value: 23 Units: mg/dL Normal 7-25 Final 2160- 0 [facility] 04/16 CREATININE Value: 1.3 Units: mg/dL Normal 0.6-1.3 Final 3097- 3 [facility] 04/16 BUN/CREATININ E RATIO - Normal 6-25 Final 66954 -1 [facility] 04/16 GFR- Value: 48 Units: mL/min/ {1.73_m 2} Low >60 Final 28531 -3 [facility] 04/16 LWA-[id number]-ZHPPM AN GABONESE Value: 40 Units: mL/min/ {1.73_m 2} Low >60 Final Stage of CKD eGFR (mL/min /1.73 square meters) Stage 1 >/= 90 or > 90 Stage 2 60 - 89 Stage 3 30 - 59 Stage 4 15 - 29 Stage 5 </= 14 or < 15 GFR is reliabl e for adults 17 to 69 years with stable [place]ctio [place]. 20297 -6 [facility] 04/16 CALCIUM Value: 9.8 Units: mg/dL Normal 8.6-10.3 Final 771-6 [facility] 04/16 CBC W/DIFF Completed Result for: RONNIE MELENDEZ ( [birth year] 49, F) 6690- 2 [facility] 04/16 WBC Value: 5.7 Units: K/cmm Normal 4.5-10.8 Final 789-8 [facility] 04/16 RBC Value: 3.23 Units: 10*3/mm 3 Low 3.90-5.40 Final 718-7 [facility] 04/16 HEMOGLOBIN Value: 8.7 Units: g/dL Low 12.0-16.0 Final 4544- 3 [facility] 04/16 HEMATOCRIT Value: 27.1 Units: % Low 36.0-48.0 Final 08784 -7 [facility] 04/16 MCV Value: 84.0 Units: fL Normal 80.0-100.0 Final 785-6 [facility] 04/16 MCH Value: 27.0 Units: pg Normal 26.0-35.0 Final 786-4 [facility] 04/16 MCHC Value: 32.1 Units: g/dL Normal 31.0-36.5 Final 788-0 [facility] 04/16 RDW Value: 18.2 Units: % High 11.0-16.0 Final 777-3 [facility] 04/16 PLATELET Value: 178 Units: K/cmm Normal 150-450 Final 76371 -1 [facility] 04/16 MPV Value: 8.0 Units: fL Normal 6.5-12.0 Final 123-9 9999- 9 [facility] 04/16 ANISOCYTOSIS - Abnormal NEGATIVE Final 770-8 [facility] 04/16 NEUTROPHILS Value: 69.2 Units: % Normal 40.0-80.0 Final 736-9 [facility] 04/16 LYMPHS Value: 18.1 Units: % Normal 13.0-48.0 Final 64604 -3 [facility] 04/16 MONOCYTES Value: 6.7 Units: % Normal 2.0-12.0 Final 713-8 [facility] 04/16 EOS Value: 5.1 Units: % Normal 0.0-8.0 Final 706-2 [facility] 04/16 BASO Value: 0.9 Units: % Normal 0.0-2.0 Final 751-8 [facility] 04/16 NEUTS (ABSOLUTE) Value: 3.90 Units: K/uL Normal 1.50-7.60 Final 731-0 [facility] 04/16 LYMPHS (ABSOLUTE) Value: 1.00 Units: K/uL Normal 0.90-5.50 Final 742-7 [facility] 04/16 MONOCYTES (ABSOLUTE) Value: 0.40 Units: K/uL Normal 0.15-1.10 Final 711-2 [facility] 04/16 EOS (ABSOLUTE) Value: 0.30 Units: K/uL Normal 0.00-0.80 Final 704-7 [facility] 04/16 BASO (ABSOLUTE) Value: 0.10 Units: K/uL Normal 0.00-0.30 Final 771-6 [facility] 04/16 NUCLEATED RBC Value: 0.1 Units: {RBC}/1 00{WBC} Normal <1.0 Final Social History Social History Observation Description Start Date End Date Code Code System Current Smoking Status Tobacco smoking consumption unknown 404133340 SNOMED CT Sex Assigned At Female 1950 28008-2 [facility] Gender Identity Female [id number] Sexual Orientation Vital Signs Code Code System Vitals Name Values and Units Timing Information 15982-4 [facility] Pain Level Value=0.0 04/21/2025 24520-8 [facility] O2 % BldC Oximetry Value=95.0 Units= % 04/21/2025 2339-0 [facility] Blood Sugar Trrzz=960.0 Units=mg/dL 04/21/2025 8310-5 [facility] Body Temperature Value=98.3 Units= F 04/02/2025 43240-0 [facility] Weight Kmlso=860.2 Units=Lbs 04/2024 9279-1 [facility] Respiratory Rate Value=20.0 Units=/m in 03/09/2025 8462-4 [facility] Blood Pressure-Diastolic Value=59 Un its=mmHg 03/09/2025 8480-6 [facility] Blood Pressure-Systolic Iulxv=775 Un its=mmHg 03/09/2025 8867-4 [facility] Heart rate Value=85.0 Units=/min 8302-2 [facility] Height Value=66.0 Units=Inches 02/07/2025
--- OUTSIDE RECORDS SUMMARY | 2025-04-21 15:21 | XMS_ITS | Encounter Summary ---
Author Organization [facility] Address [facility] [place] [address] Care Team Providers Care Manufacturing Business Analyst Name Role Phone Marshall Cuevas MD Primary Care Provider Asuncion Tanner MD Unavailable Zain Betancur MD Unavailable [phone] Claudio Mendez MD Unavailable [phone] Encounter Details Date Type Department Care Team (Late st Contact Info) Description 09/01[facility]2023 [facility] [address] [place] [address] Zain Betancur MD [address] [place] [address] Social History Tobacco Use Types Packs/Day Years Used Date Smoking Tobacco: Never Smokeless Tobacco: Never Comments:patient doesnt smok e Alcohol Use Standard Drinks/Week Comments No 0 (1 standard drink = 0.6 oz pur e alcohol) Humiliation, Afraid, Rape, and Kick questionnair e Answer Date Recorded Fear of Current or Ex-Partner No Emotionally Abused No 06/29/2019 Physically Abused No 06/29/2019 Sexually Abused No 06/29/2019 Social Connection and Isolation Panel Answer Date Recorded Frequency of Communication with Friends and Fami ly Never 06/29/2019 Frequency of Social Gatherings with Friends and Family Never 06/29/2019 Attends Restorationist Services Never 06/28 Active Member of Clubs or Organizations No 06/29/2019 Attends Club or Organization Meetings Not asked 06/29/2019 Marital Status Not asked 06/29/2019 AUDIT-C Answer Date Recorded Frequency of Alcohol Consumption Never 03/08/2018 Average Number of Drinks Not on file 018 Frequency of Binge Drinking Not on file 02/23 Overall Financial Resource Strain (CARDIA) Answe r Date Recorded Difficulty of Paying Living Expenses Not hard at all 06/29/2019 PHQ-2 Answer Date Recorded PHQ-2 Score - If the patient scores above 3, please move on to questions 3-9 0 06/22/2021 [facility] - Occupational Stress Questionnaire Answer Date Recorded Feeling of Stress Not at all 06/29/2019 Exercise Vital Sign Answer Date Recorde d Days of Exercise per Week 0 days 2019 Minutes of Exercise per Session 0 min 06/29/2019 Hunger Vital Sign Answer Date Recorded Worried About Running Out of Food in the Last Ye ar Never true 06/29/2019 Ran Out of Food in the Last Year Never true 06/29/2019 PRAPARE - Transportation Answer Date Re corded Lack of Transportation (Medical) No 06/29/2019 Lack of Transportation (Non-Medical) No 06/29/2019 Comments No Sex and Gender Information Value Date Recorded Sex Assigned at Female 11/13/2024 12:48 PM CDT Legal Sex Female 10:43 PM CDT Gender Identity Not on file Sexual Orientation Not on file documented as of this encounter Functional Status * RETIRED Are you deaf or do you have serious difficulty hearing Answer Date of Assessment Author Status No 07/01/2019 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 Answer Date of Assessment Author Status No 07/01/2019 12:00 AM Eriberto Rosas RN Active * Do you have difficulty dressing or bathing? Answer Date of Assessment Author Status Yes 07/01/2019 12:00 AM Eriberto Rosas RN Active * Because of a physical, mental, or emotional condition, do you have difficulty doing errands alone such as visiting a doctor's office or shopping? Answer Date of Assessment Author Status Yes 07/01/2019 12:00 AM Eriberto Rosas RN Active documented as of this encounter Mental Status * Because of a physical, mental, or emotional condition, do you have serious difficulty concentrating, remembering, or making decisions? 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 09/04/2019 09/04/2019 ESBL - Extended Spectrum Beta-lactamase 01/04/2025 1 05/15/2024 Assessment Noted Time PHQ-9 Depression Total Score: 0 06/22/19 10:52 AM 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
--- OUTSIDE RECORDS SUMMARY | 2025-04-21 15:21 | XMS_ITS ---
Author Organization Unknown Address [address] [place] [phone] Phone Care Team Providers Care Shagger Name Role Phone HELIO DAVIDSON Attending Unavailable GALINA Hall Primary Unavailable Immunization Immunization Date Status Additional Notes Code Code System COVID-19, mRNA, LNP-S, PF, suzie-sucrose, 30 mcg/0.3 mL 04/11/2024 Completed 309 CVX Pneumococcal conjugate PCV 13 02/09/2017 Completed 133 CVX Pneumococcal conjugate PCV 13 01/23/2017 Completed 133 CVX Influenza, high-dose, trivalent, PF 01/25/2017 Completed 135 CVX Influenza, split virus, trivalent, PF 01/23/2017 Completed 140 CVX Influenza, split virus, trivalent, preservative 02/06/2018 Completed 141 CVX Influenza, split virus, trivalent, preservative 01/17/2014 Completed 141 CVX COVID-19, mRNA, LNP-S, PF, 3 0 mcg/0.3 mL dose 04/29/2020 Completed 208 CVX COVID-19, mRNA, LNP-S, PF, 3 0 mcg/0.3 mL dose 05/20/2020 Completed 208 CVX COVID-19, mRNA, LNP-S, PF, 3 0 mcg/0.3 mL dose 02/07/2021 Completed 208 CVX COVID-19, mRNA, LNP-S, PF, 3 0 mcg/0.3 mL dose 11/11/2021 Completed 208 CVX COVID-19, mRNA, LNP-S, bivalent, PF, 30 mcg/0.3 mL dose 03/30/2022 Completed 300 CVX pneumococcal polysaccharide PPV23 03/13/2018 Completed 33 CVX Social History Type Status Start Date End Date Code Code Syst em Smoking History Never smoker (Never Smoked) [id number] SNOMED CT Sex Female Gender Identity Female [id number] Medications Medication Start Date End Date Route Frequency Dose Code Code System Medication Instructions Home Meds dilTIAZem HCl 180MG Oral Capsule, Extended Release, 24 HR 06/03/2017 Unknown ORAL ONCE A DAY 180 MILLIGRAMS 647030 RxNorm TAKE 180 MILLIGRAMS ORAL ONCE A DAY Aspirin 81MG Oral Tablet, Enteric Coated 06/03/2017 Unknown ORAL ONCE A DAY 162 MILLIGRAMS 330640 RxNorm TAKE 162 MILLIGRAMS ORAL ONCE A DAY Gabapentin 300MG Oral Capsule 06/03/2017 Unknown ORAL THREE TIMES A DAY 300 MILLIGRAMS 293697 RxNorm TAKE 300 MILLIGRAMS ORAL THREE TIMES A DAY Levemir FlexPen 100U/1ML Subcutaneous Solution 06/03/2017 Unknown SUBCUTA NEOUS AT BEDTIME 33 UNITS 289058 RxNorm INJECT INTO 33 UNITS SUBCUTANEOUS AT BEDTIME Magnesium Oxide 400MG Oral Tablet 06/03/2017 Unknown ORAL ONCE A DAY 400 MILLIGRAMS 169391 RxNorm TAKE 400 MILLIGRAMS ORAL ONCE A DAY Montelukast Sodium 10MG Oral Tablet 06/03/2017 Unknown ORAL AT BEDTIME 10 MILLIGRAMS 526486 RxNorm TAKE 10 MILLIGRAMS ORAL AT BEDTIME Polyethylene Glycol 17GM/1Dose Oral Powder for Solution 06/03/2017 Unknown ORAL NEEDED DAILY 17 GRAMS RxNorm TAKE 17 GRAMS ORAL NEEDED DAILY Potassium Chloride 10MEQ Oral Tablet, Extended Release 06/03/2017 Unknown ORAL TWICE A DAY 20 MEQ 095880 RxNorm TAKE 20 MEQ ORAL TWICE A DAY Spironolacto ne 25MG Oral Tablet 06/03/2017 Unknown ORAL TWICE A DAY 25 MILLIGRAMS 891893 RxNorm TAKE 25 MILLIGRAMS ORAL TWICE A DAY Vitamin D3 2000 IU Oral Capsule, Liquid Filled 06/03/2017 Unknown ORAL ONCE A DAY 2000 UNITS 484819 RxNorm TAKE 2000 UNITS ORAL ONCE A DAY metFORMIN HCl 1000MG Oral Tablet 06/03/2017 Unknown ORAL TWICE A DAY WITH MEALS 1000 MILLIGRAMS 116931 RxNorm TAKE 1000 MILLIGRAMS ORAL TWICE A DAY WITH MEALS Nystatin 941597B/1GM Topical application Cream 10/16/2017 Unknown TOPICAL EVERY 12 HOURS 1 APPLICATION 378391 RxNorm APPLY TO AFFECTED AREA TOPICAL EVERY 12 HOURS Pantoprazole Sodium 40MG Oral Tablet, Enteric Coated 10/16/2017 Unknown BY MOUTH ONCE A DAY 40 MILLIGRAMS 578345 RxNorm TAKE 40 MILLIGRAMS BY MOUTH ONCE A DAY Florastor 250 MG Oral Capsule 10/16/2017 Unknown BY MOUTH TWICE A DAY 250 MILLIGRAMS RxNorm TAKE 250 MILLIGRAMS BY MOUTH TWICE A DAY Abilify 20MG Oral Tablet 10/16/2017 Unknown ORAL ONCE A DAY 20 MILLIGRAMS 163740 RxNorm TAKE 20 MILLIGRAMS ORAL ONCE A DAY Acetaminophe n 325MG Oral Tablet 10/16/2017 Unknown ORAL NEEDED EVERY 6 HOURS 650 MILLIGRAMS 743165 RxNorm TAKE 650 MILLIGRAMS ORAL NEEDED EVERY 6 HOURS Albuterol Sulfate 0.083% Inhalation Solution 10/16/2017 Unknown INHALAT ION NEEDED 4 TIMES A DAY 1 VIAL 330139 RxNorm 1 VIAL INHALATION NEEDED 4 TIMES A DAY Breo Ellipta 200MCG-25MCG /1Act Inhalation Powder 10/16/2017 Unknown INHALAT ION ONCE A DAY 1 PUFF 1418864 RxNorm 1 PUFF INHALATION ONCE A DAY Docusate 100MG Oral Capsule, Liquid Filled 10/16/2017 Unknown ORAL AT BEDTIME 200 MILLIGRAMS 4398007 RxNorm TAKE 200 MILLIGRAMS ORAL AT BEDTIME Vitamin D 06391VL Oral Capsule 10/16/2017 Unknown ORAL ONCE A WEEK 28006 UNITS 4081942 RxNorm TAKE 94103 UNITS ORAL ONCE A WEEK Zetia 10MG Oral Tablet 10/16/2017 Unknown ORAL AT BEDTIME 10 MILLIGRAMS 137075 RxNorm TAKE 10 MILLIGRAMS ORAL AT BEDTIME Melatonin 3 MG Oral Tablet 10/16/2017 Unknown BY MOUTH AT BEDTIME 3 MILLIGRAMS 568217 RxNorm TAKE 3 MILLIGRAMS BY MOUTH AT BEDTIME Furosemide 80MG Oral Tablet 03/13/2018 Unknown BY MOUTH ONCE A DAY 80 MILLIGRAMS 602913 RxNorm TAKE 80 MILLIGRAMS BY MOUTH ONCE A DAY Assessment You had the following problems:PYELONEPHRITISSUPRAVENTRICULAR TACHYCARDIABED-RIDDENSPRAINED RIGHT ANKLE, INITIAL ENCOUNTERCELLULITIS OF RIGHT LEG Hospital Discharge Instructions Should you have any questions prior to discharge, please contact a member of your healthcare team. If you have left the hospital and have any questions, please contact your primary care physician. Reason For Referral No Data Found Problems Problem Start Date Resolved Date Status Code Code System PYELONEPHRITIS active [id number] SNOME D-CT SUPRAVENTRICULAR TACHYCARDIA active 5102976 SNOMED-CT BED-RIDDEN active 802066803 SNOMED-CT SPRAINED RIGHT ANKLE, INITIAL ENCOUNTER active 35909522802095801 SNOME D-CT CELLULITIS OF RIGHT LEG active 152055 [id number] SNOMED-CT Allergies and Adverse Reactions Allergy Substance Reaction Severity Start Date Concern Status Co de Code System PCN (penicillin) Hives (SNOMED-CT: 403144121) Moderate Active GLYBURIDE Moderate Active 4815 RxNorm CONTRAST MEDIA, IODINE RELATED Hives (SNOMED-CT: 848450709), SOB (SNOMED-CT: 405875279) Severe Active CIPRO Hives (SNOMED-CT: 262608130) Moderate Active 725446 RxNorm Plan of Treatment Julio Established Patient 025 Julio Established Patient 025 Aura Established Patient 026 Encounters Encounter Diagnosis Start Date Code Code Sys tem Person with [facility] m[facility] in whom no diagnosis is made 01/27/2025 SNOMED-CT Personal Care Team Section Performer Name Performer Role Active Date Inactive TRAN [place] PCP - Primary care physician
--- OUTSIDE RECORDS SUMMARY | 2025-04-21 15:21 | XMS_ITS | Clinical Summary ---
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
--- OUTSIDE RECORDS SUMMARY | 2025-04-21 15:21 | XMS_ITS | Clinical Summary ---
Author Organization [facility] Address [address] [place] [address] Care Team Providers Care Ergonomics Technician Name Role Phone Brock Kim MD Primary Care Provider [phone] Allergies Active Allergy Reactions Criticality Noted Date Comments Ciprofloxacin Other (See comments),Hives Medium 08/26/2014 Unable to assess Other reaction(s): Other (see comment) Unable to assess Unable to assess Other reaction(s): Other (see comment) Unable to assess Unable to assess Other reaction(s): Other (see comment) Unable to assess Other reaction(s): Other (see comment) Unable to assess Unable to assess Other reaction(s): Other (see comment) Unable to assess Unable to assess Other reaction(s): Other (see comment) Unable to assess Unable to assess Other reaction(s): Other (see comment) Unable to assess Unable to assess Other reaction(s): Other (see comment) Unable to assess Clindamycin Stomach upset Low 08/28/2019 Other reaction(s): GI Upset Other reaction(s): GI Upset Other reaction(s): GI Upset Doxycycline Hives Medium 10/19/2024 Fentanyl Rash,Other (See comments),Unknown Medium 12/19/2020 Other reaction(s): Unknown Other reaction(s): Unknown Other reaction(s): Unknown Other reaction(s): Unknown Glyburide Urticaria Medium 05/24/2024 Iodinated Contrast Media Hives,Unknown,S hortn ess of breath High 05/31/2017 Penicillins Other (See comments) Low 08/26/2014 Unable to assess Other reaction(s): Other (see comment) Unable to assess Unable to assess Other reaction(s): Other (see comment) Unable to assess Unable to assess Other reaction(s): Other (see comment) Unable to assess Other reaction(s): Other (see comment) Unable to assess Unable to assess Other reaction(s): Other (see comment) Unable to assess Unable to assess Other reaction(s): Other (see comment) Unable to assess Unable to assess Other reaction(s): Other (see comment) Unable to assess Unable to assess Other reaction(s): Other (see comment) Unable to assess Medications albuterol HFA (PROVENTIL HFA,VENTOLIN HFA,PROAIR HFA) 90 mcg/actuation inhaler Inhale 2 puffs every 4 (four) hours as needed Active aspirin 81 mg enteric coated tablet Take 1 tablet (81 mg total) by mouth every morning Active atorvastatin (LIPITOR) 40 mg tablet Take 1 tablet (40 mg total) by mouth nightly 3 Active benzonatate (TESSALON) 100 mg capsule Take 1 capsule (100 mg total) by mouth 3 (three) times a day as needed for cough Active calcium carbonate (TUMS) 500 mg (200 mg elemental calcium) chewable tablet Take 2 tablet/chew tab (1,000 mg total) by mouth every 6 (six) hours as needed for heartburn Active cholecalciferol 25 mcg (1,000 unit) tablet Take 1 tablet (1,000 Units total) by mouth every morning Active citalopram (CeleXA) 10 mg tablet Take 1 tablet (10 mg total) by mouth every morning 0 Active docusate sodium (COLACE) 100 mg capsule Take 4 capsules (400 mg total) by mouth nightly Active epoetin kamar (EPOGEN,PROCRIT ) 10,000 unit/mL injection Inject 1 mL (10,000 Units total) under the skin once a week Active ferrous gluconate 324 mg (37.5 mg of elemental iron) tablet Take 0.1173 tablets (38 mg total) by mouth 3 (three) times a day Active fluticasone-ume clidin-vilanter (TRELEGY ELLIPTA) 100-62.5-25 mcg inhaler Inhale 1 puff every morning Active gabapentin (NEURONTIN) 600 mg tablet Take 1 tablet (600 mg total) by mouth 3 (three) times a day 0 Active insulin aspart (NovoLOG) 100 unit/mL (3 mL) pen for injection Inject under the skin 3 (three) times a day with meals 20 units before meals Active insulin glargine 100 unit/mL (3 mL) pen for injection Inject 55 Units under the skin nightly Active loratadine (CLARITIN) 10 mg tablet Take 1 tablet (10 mg total) by mouth nightly Active magnesium oxide 400 mg magnesium tablet Take 1 tablet by mouth 2 (two) times a day Active ondansetron (ZOFRAN) 4 mg tablet Take 1 tablet (4 mg total) by mouth every 8 (eight) hours as needed for nausea or vomiting Active polyethylene glycol (MIRALAX) 17 gram/dose bulk powder Take 17 g by mouth daily as needed Active Saccharomyces boulardii (FLORASTOR) 250 mg capsule Take 1 capsule (250 mg total) by mouth 2 (two) times a day Active chlorhexidine (HIBICLENS) 4 % external liquid Apply 1 Application topically daily as needed for wound care Active oxygen Administer 2 L/min into each nostril nightly Active acetaminophen 500 mg capsuleIndicati ons:Pain Take 2 capsules (1,000 mg total) by mouth every 6 (six) hours as needed for pain 3 Active potassium chloride ER (Klor-Con 10) 10 mEq CR tablet Take 8 tablet/capsule (80 mEq total) by mouth 2 (two) times a day Active bisacodyL (DULCOLAX) 10 mg suppository Insert 1 suppository (10 mg total) into the rectum daily as needed 4 Active clindamycin (CLEOCIN T) 1 % lotion APPLY A THIN LAYER TO THE AFFECTED AREA(S) (buttocks, groin, axilla) BY TOPICAL ROUTE 2 TIMES PER DAY 4 Active fluocinonide (LIDEX) 0.05 % external solution 4 Active FIASP 100 unit/mL (3 mL) pen for injection 5 Active nystatin cream [address] (PROTONIX) 40 mg EC tablet 5 Active cranberry 500 mg capsule Take 4 tablets by mouth daily Active levoFLOXacin (LEVAQUIN) 500 mg tablet Take 1 tablet (500 mg total) by mouth daily 5 Active torsemide (DEMADEX) 20 mg tablet Take 4 tablets (80 mg total) by mouth 2 (two) times a day 5 Active ascorbic acid 500 mg tablet,chewable Take 3 tablet/chew tab (1,500 mg total) by mouth every morning 5 Active Additional Information Patient not taking.Reason: Not available, Reported on 11/23/2024 roflumilast (DALIRESP) 500 mcg tablet 1 tablet (500 mcg total) 5 Active acetaminophen (TYLENOL) 500 mg tablet Take 2 tablets (1,000 mg total) by mouth every 12 (twelve) hours as needed for pain Active benzoyl peroxide 10 % cleanser WASH THE AFFECTED AREA(S) BY TOPICAL ROUTE EVERY OTHER DAY, ALTERNATING WITH HIBICLENS 5 Active clobetasoL (TEMOVATE) 0.05 % external solution 5 Active lidocaine HCL 3 % cream Apply topically Acti ve triamcinolone (KENALOG) 0.1 % cream Active zinc gluconate 30 mg tablet Take 1 tablet twice a day by oral route for 90 days. 5 Active lidocaine (ASPERCREME) 4 % adhesive patch,medicated Place 1 patch on the skin daily for 12 hours 60 patch 11 5 Active methocarbamoL (ROBAXIN) 750 mg tablet Take 1 tablet (750 mg total) by mouth 3 (three) times a day as needed for muscle spasms 90 tablet 3 5 Active losartan (COZAAR) 25 mg tablet Take 1 tablet (25 mg total) by mouth daily 100 tablet 1 5 06/15/19 26 Active nitrofurantoin monohydrate (MACROBID) 100 mg capsuleIndicati ons:Urinary tract infection without hematuria, site unspecified Take 1 capsule (100 mg total) by mouth 2 (two) times a day for 5 days 10 capsule 5 04/03/20 25 Active Problems Patient Care Coordination No te Formatting of this note migh t be different from the original. Referring provider: Dr. Issac Pedersen Ms. Marleny Del Rio is a 72 year old with lung nodules. Patient has a history of rheumatoid arthritis. In January of 2023 the patient underwent a right partial nephrectomy for renal cell carcinoma with Dr. Pedersen at [facility]. 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 There were 2 foci of renal cell carcinoma in the tumor specimen. She still has a left-sided lesion that is being followed. Patient also has a history of pulmonary nodules. She was being followed by a poultry cutter at [facility]. In January 2023 the patient underwent a chest CT which showed stable nodules. More recent imaging showed that they had increased in size. On 06/27/2023 the patient underwent a PET scan which noted a mildly FDG avid right upper lobe lung nodule, concerning for pulmonary metastasis. However primary pulmonary malignancy can have a similar appearance. There were 2 intensely hypermetabolic left thyroid lobe mass/nodules which are concerning for primary thyroid benign/malignant nodules. There is focal cortical uptake in the mid pole of the right kidney adjacent to the surgical sutures which could represent post treatment inflammatory changes or residual/recurrent disease. There was widespread intense uptake in multiple axial and peripheral joints likely related to the patient's underlying rheumatoid arthritis or superimposed osteoarthritis. Evaluation of the lytic lesion is limited in the setting of patient's advanced osteopenia. There is exuberant facet joint arthropathy at the level of T10 and T11 with intra canal extension, worrisome for spinal cord compression. On 08/03/2023 the patient underwent an MRI of the thoracic spine with and without contrast which showed lobular regions of low signal with corresponding enhancement within the left dorsal lateral epidural compartment at T10-T11 and right dorsal lateral epidural compartment at T11-T12. Findings are most likely reflecting prominent ligamentous thickening/hypertrophy with associated reactive enhancement. There is no obvious metastatic lesion identified within the thoracic spine. There is multilevel degenerative changes in the thoracic spine contributing to varying degrees of spinal canal and foraminal stenosis. The most severe canal stenosis is at T11-T12 more so than T10-T11. There is no obvious abnormal signal or enhancement identified in the thoracic cord the image quality is compromised by artifact related to patient positioning. On 08/04/2023 the patient underwent a ultrasound-guided biopsy. Final pathology was satisfactory for evaluation. It was negative for malignant cells. Cytologic features are consistent with benign follicular nodule. On 02/02/2023 the patient underwent a myocardial perfusion imaging study which showed normal perfusion study. The left ventricular ejection fraction was 97%. This is an over estimate. The left ventricular systolic function is normal. Negative ECG portion of regadenoson stress test. The patient had no complaints of chest pain. On 08/16/2023 the patient underwent pulmonary function testing which showed an FEV1 of 57% of predicted and a DLCO of 50% of predicted. Patient has a history of severe osteoarthritis of her knees. She is unable to walk because of this and uses a wheelchair. She lives in a fdc. She also has a history of a CVA. Patient is a never smoker. Patient presents today for further surgical evaluation. 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 y/o female who presents for cataract evaluation. They have noticed progressive loss of vision over the last few years, and feel that surgery would help enhance vision & quality of life. Feels that vision in the left eye has been declining. Follows with Dr. Carreno for choroidal nevus. Has a few floaters, no flashes of light. Does not wear any glasses currently (for near or distance). Ocular ROS: Glare Yes - especially bothersome at night Halos No Trouble driving No - does not drive Trouble reading No All other ROS negative unless noted in HPI. Active ocular issues: Small, flat choroidal nevi both eyes Ocular History: Amblyopia Yes? - was told her left eye was a lazy eye as a child, no prior patching or strab surgery Vitrectomy No Scleral buckle No Intravitreal Injections No Laser refractive surgery No History of ocular trauma No History of eye infection No Medical History: Past Medical History: Diagnosis Date Cancer (CMS/HCC) (HCC) Chronic kidney disease Diabetes mellitus (HCC) Hypertension Sleep apnea Medical ROS: Angina present? No Cough or orthopnea? Yes - has asthma, COPD Dyspnea on exertion? Yes Has sleep apnea/wears CPAP? Yes - failed CPAP machine use and it was taken away, using 2L oxygen instead Patient is able to lie flat for at least 1 hour Yes - if head can be elevated Current medications: Systemic medications per EMR Flowmax/Hytrin No Coumadin/Plavix No - ASA 81mg qday Allergies: Allergies Allergen Reactions Iodinated Contrast Media Hives, Unknown and Shortness of breath Ciprofloxacin Other (See comments) and Hives Unable to assess Other reaction(s): Other (see comment) Unable to assess Unable to assess Other reaction(s): Other (see comment) Unable to assess Unable to assess Other reaction(s): Other (see comment) Unable to assess Other reaction(s): Other (see comment) Unable to assess Unable to assess Other reaction(s): Other (see comment) Unable to assess Unable to assess Other reaction(s): Other (see comment) Unable to assess Unable to assess Other reaction(s): Other (see comment) Unable to assess Unable to assess Other reaction(s): Other (see comment) Unable to assess Fentanyl Rash, Other (See comments) and Unknown Other reaction(s): Unknown Other reaction(s): Unknown Other reaction(s): Unknown Other reaction(s): Unknown Glyburide Urticaria Penicillin Hives Clindamycin Stomach upset Other reaction(s): GI Upset Other reaction(s): GI Upset Other reaction(s): GI Upset Iodine Unknown and Other (See comments) Other reaction(s): kidneys shut down Other reaction(s): Unknown Other reaction(s): kidneys shut down Other reaction(s): Unknown Other reaction(s): kidneys shut down Other reaction(s): Unknown Other reaction(s): kidneys shut down Other reaction(s): kidneys shut down Penicillins Other (See comments) Unable to assess Other reaction(s): Other (see comment) Unable to assess Unable to assess Other reaction(s): Other (see comment) Unable to assess Unable to assess Other reaction(s): Other (see comment) Unable to assess Other reaction(s): Other (see comment) Unable to assess Unable to assess Other reaction(s): Other (see comment) Unable to assess Unable to assess Other reaction(s): Other (see comment) Unable to assess Unable to assess Other reaction(s): Other (see comment) Unable to assess Unable to assess Other reaction(s): Other (see comment) Unable to assess Latex allergy: No Cataract specific exam findings: Prominent brow No Dense arcus No K spindle No Guttae No PXE material No TIDs No Phacodonesis No Posterior synechiae No L/I step off No Mature/white No Dominant Eye: the right eye Dilates to: OD 8.5 mm OS 9 mm Tolerates gonioscopy: unable, patient cannot sit at slit lamp Assessment and Plan 1. Visually Significant Cataract of both eyes - Patient interested in having CE/IOL of the left eye - R/B/A of surgery discussed with patient and/or presented in writing, including complications that may require additional surgeries or other procedures such as retained lens fragment, inability to place a lens implant at the time of surgery, prolonged inflammation, macular edema, corneal edema/decompensation, intraocular pressure abnormalities, diplopia, ptosis. Reviewed possible complications that might result in permanent loss of vision or the eye, including infection, hemorrhage, and retinal tear/detachment. Reviewed risks of anesthesia. - Additional risks discussed included: Patient is unable to transfer from wheelchair to exam chair or to chair for pre-operative measurements. Discussed with her that this would likely require obtaining measurements for IOL calcs either in pre-operative area or in OR with portable auto-refractor. We do not currently have one in the [facility] clinic. Exam today needed to be performed with portable slit lamp/indirect, which does limit assessment relative to quality of stand up slit lamp. - The patient understands these risks and wishes to proceed. She is currently being managed for renal cell carcinoma s/p partial nephrectomy and has an upcoming appointment with her urologist in July. She wants to check on how her RCC surveillance is doing before scheduling any eye surgery, and anticipates she would most likely be having surgery after late July. As this likely means she would be having surgery with one of my colleagues, she would like to meet her surgeon before surgery and will return for another pre-op appointment. - Target refraction was discussed with the patient. We discussed near, distance, and monovision; we also discussed multifocal and toric lenses. The patient elected to target plano. - Best phone number at which to reach patient: [phone] Planned Operation: CE/IOL of the left eye Time: 60 minutes Anesthesia: MAC Local: Topical Special equipment: Autumnr mara, will likely avoid intracameral antibiotics intraop due to allergies 23 Hr Stay?: No Preop meds: None Med Clearance: TPAP - likely POD2 case due to patient's medical comorbidities IOL Master: unable to be obtained Additional perioperative testing/procedure needed?: auto-refraction with portable autorefractor Assessment & Plan (11/22/2023 2:10 PM CDT): History of renal cell carcinoma s/p partial right nephrectomy Seen by thoracic surgery with findings of small pulmonary nodules with concern for possible metastatic lesions Patient referred to [facility] for evaluation of ocular metastasis given reports of progressive blurred vision over last year that has stabilized over last few months Exam today with moderate cataracts but otherwise normal appearing dilated exam with no evidence of intraocular metastatic lesions Currently, patient elects to monitor cataracts, can consult with cataract surgeon in future PRN Choroidal nevus of both eyes 11/22/2023 Assessment & Plan (11/22/2023 2:21 PM CDT): Small, flat choroidal nevi both eyes (OU) , no mass lesions or evidence of metastatic disease both eyes (OU). Bipolar 1 disorder 09/18/2023 Chronic cough 09/18/2023 Chronic low back pain without sciatica Iron deficiency 09/18/2023 Osteoporosis without current pathological fractu re 09/18/2023 Seasonal allergies 09/18/2023 Vitamin D deficiency 09/18/2023 Hidradenitis suppurativa 09/05/2023 Pulmonary nodule 08/03/2023 Renal cell carcinoma of right kidney 08/03/2023 Hyperglycemia due to type 2 diabetes mellitus Essential hypertension 07/13/2023 Hypokalemia 07/13/2023 Iron deficiency anemia 07/13/2023 Urinary tract infection, site not specified 06/24 Kidney disease 07/13/2023 Renal insufficiency 07/13/2023 Stage 3 chronic kidney disease 07/13/2023 Rotator cuff arthropathy of right shoulder 04/28 Renal mass 01/06/2023 DM type 2 with diabetic peripheral neuropathy Constipation 12/01/2021 Chronic nonintractable headache 06/25/2021 Polyneuropathy associated with underlying diseas e 06/25/2021 Anxiety 06/17/2021 Benign hypertensive heart an d kidney disease with stage 4 chronic kidney disease without CHF 06/17/2021 Edema 06/17/2021 GERD (gastroesophageal reflux disease) Hyperlipidemia associated with type 2 diabetes m ellitus 06/17/2021 Overview (11/23/2024): No recent lab data in care everywhere Hypertension associated with diabetes 06/17/2021 Morbid (severe) obesity due to excess calories 0 06/17/2021 Osteoarthritis 06/17/2021 Seborrheic dermatitis 06/17/2021 Chronic kidney disease, unspecified 06/17/2021 Anemia 06/30/2019 COPD (chronic obstructive pulmonary disease) 09/2019 Diabetes 06/29/2019 Right lower lobe pneumonia 06/29/2019 Chronic renal insufficiency, stage 4 (severe) Pyelonephritis 10/02/2017 Supraventricular tachycardia 05/31/2017 Knee pain 01/07/2016 Encounters Date Type Department Care Team Description 03/19/2025 Orders Only [facility] Issca Pedersen MD 03/14/2025 Telephone [facility] Radiation Oncology [address] [facility] [place] [address] Shaniqua Hinojosa NP 03/13/2025 Telephone [facility] Radiation Oncology [address] [facility] [place] [address] Erika Hess, CRISTIAN 03/13[facility]20[facility] [address] [facility] [address] [place] [address] Issac Pedersen MD 03/13/2025 Orders Only [facility] Medicine Surgery [address] [facility] [address] [place] [address] Issac Pedersen MD Dysuria (Primary Dx) 02/28/2025 Telephone [facility] Advanced Medicine Radiation Oncology [address] [facility] [place] [address] Sherry Zarate MA 02/26/2025 Telephone [facility] Nephrology [address] [place] [address] Advanced Medicine 5th [place] [address] [place] [id number] [facility] 02/22/2025 Telephone [facility] Advanced Medicine Radiation Oncology [address] [place] [address] [place] [address] Sherry Zarate MA 02/21/2025 Telephone [facility] Advanced Medicine Radiation Oncology [address] [place] [address] [place] [address] Sherry Zarate MA 02/18/2025 [facility] Advanced Medicine Radiation Oncology [address] [place] [address] [place] [address] Erika Hess RN 02/12/2025 11:43 AM CDT - 02/12/2025 11:59 PM CDT Hospital Encounter [facility] [address] [place] [id number] Diagnosis unknown Discharge Disposition: Discharge to home or self care 02/07/2025 Telephone [facility] Cardiology [address] [place] [address] Advanced Medicine 8th [place] [address] [place] [address] Miller Ramos MD PhD from Last 3 Months Immunizations Immunization Administration Dates Next Due COVID-19 mRNA (PFIZER) 0.3 m L (30 mcg) vaccine (12 years and up) 04/11/2024 Influenza, Quadrivalent, Spl it, Preservative Free, Intramuscular 03/12/2018 Influenza, Trivalent, IM (MDV) 02/06/2018 Influenza, Unspecified 01/23/2023 Influenza, Whole 02/06/2018 Pneumococcal Polysaccharide PPV23 03/13/2018 Surgical History Surgery Date Site/Laterality Comments COMBINED REDUCTION MAMMAPLAS TY W/ ABDOMINOPLASTY 04/25/2009 - 04/24/2010 UMBILICAL HERNIA REPAIR 04/25/2011 - 04/24/[address] UDY AND ABLATION 04/25/2019 - 04/24/2020 Medical History Medical History Date Comments Sleep apnea Diabetes mellitus Cancer (HCC) Chronic kidney disease Hypertension Anemia Anxiety Asthma CHF (congestive heart failure) (HCC) COPD (chronic obstructive pulmonary disease) Depression Dermatitis Type 2 diabetes mellitus Gastric reflux History of transfusion Kidney infection Osteoarthritis Sinusitis Family History Medical History Relation Name Comments Coronary artery disease Father Heart disease Father Hypertension Father Stroke Mother Cancer Other Heart disease Paternal Grandfather Hypertension Paternal Grandfather Diabetes Paternal Grandmother ckd Paternal cousin 1 ckd Paternal cousin 2 Anesthesia problems Neg Hx Glaucoma Neg Hx Macular degeneration Neg Hx Relation Name Status Comments Father Mother Other Paternal Grandfather Paternal Grandmother Paternal cousin 1 Paternal cousin 2 Alive Social History Tobacco Use Types Packs/Day Years Used Date Smoking Tobacco: Never Passive Smoke Exposure: Never Smokeless Tobacco: Never Tobacco Cessation:Counseling Given: No AUDIT-C Answer Date Recorded Q1: How often do you have a drink containing alcohol? Never 11/20/2024 Q2: How many drinks containi ng alcohol do you have on a typical day when you are drinking? Patient does not drink Q3: How often do you have si x or more drinks on one occasion? Never 11/20/2024 Personal Safety Answer Date Recorded Have you ever been in or are you currently in a harmful physical or emotional relationship or is someone making you feel afraid or unsafe? 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 Gender Identity Not on file Sexual Orientation Straight 10/19/2024 1: 02 PM CDT Last Filed Vital Signs Vital Sign Reading Time Taken Comments Blood Pressure 128/58 11/20/2024 9:12 AM CDT Pulse 114 11/20/2024 9:12 AM CDT Temperature 36.6 C (97.8 F) 11/20/2024 9:12 AM CDT Respiratory Rate 16 11/20/2024 9:12 AM CDT Oxygen Saturation 93% 11/20/2024 9:12 AM CDT Inhaled Oxygen Concentration - - Weight 104.3 kg (230 lb) 11/20/2024 9:12 AM CDT Height 167.6 cm (5' 6) 11/20/2024 9:12 AM CDT Body Mass Index 37.12 11/20/2024 9:12 AM CDT Plan of Treatment Health Maintenance Due Date Last Done Comments Albumin Creatinine Ratio, Urine 1950 Colon Cancer Screening-Colonoscopy 1950 Depression Screening 1950 Hepatitis C Screening 1950 Foot Exam 1950 DTaP/Tdap/Td Vaccine (1 - Tdap) 1960 Hepatitis B Screening 10/19/1967 Zoster Vaccine (1 of 2) 10/19/1999 Well Visit 65+ 2014 Pneumococcal vaccine 65+ (2 of 2 - PCV) 03/13/2019 03/13/2018 Hemoglobin A1C 08/09/2023 02/07/2023 Lipid Panel 08/11/2023 08/10/2022, 07/01/2019 eGFR 09/06/2024 09/07/2023, 01/23, 02/09/2023, Additional history exists Covid-19 Vaccine (2024-2 6 season) 2024 04/11/2024, 03/30/2022, 11/11/2021, Additional history exists Influenza Vaccine (#1) 2024 , 03/12/2018, 02/06/2018, Additional history exists Fall Risk Assessment 02/09/2025 02/10/2024, 02/11/20 23 Dilated Eye Exam 11/20/2025 11/20/2024, , 11/22/2023 Osteoporosis Screening-Bone Density Scan 12/06/2026 12/06/2024 Breast Cancer Screening-Mammogram Discontinued 01/07/2025, 01/07/2025, 01/09/2024, Additional history exists Goals Goal Patient Goal Type Associated Problems Recent Progress Patient-Stated? Author CCM Chronic Pain Care Plan Chronic Care Management Abby Phipps, RN Note: Problem: Chronic Pain Goals: 1. Minimize further functional decline 2. Maximize quality of life 3. Control pain Strategies: - Activity/exercise program recommendation - Conservative stepwise pain medicine strategy with multi-disciplinary approach - Recommend healthy lifestyle strategies and compensatory methods as needed Medical Devices Implanted Type Area Board Layer Device Identifier Shelf Expiration Date Model / Serial / Lot Rt Breast Biopsy Marker/Clip Breast Hernia Mesh, Umbilical Abdomen Procedures Procedure Name Priority Date/Time Associated Diagnosis Comments SCAN - LABS 03/19/2025 CT BODY OUTSIDE CONSULT Routine 02/12/2025 11:43 AM CDT Diagnosis unknown EGFR Routine 09/07/2023 4:28 PM CDT POCT HEMOGLOBIN A1C Routine 02/07/2023 1 0:59 AM CDT from Last 3 Months or Most Recently Relevant to Health Maintenance Results * SCAN - LABS (03/19/2025) us Issac Pedersen MD Final Res ult * CT Body Outside Consult (02/12/2025 11:43 AM CDT) Anatomical Region Laterality Modality Body N/A Computed Tomogra phy 02/12/2025 12:1 3 PM CDT Impressions 02/12/2025 12:13 PM CDT 1. Stable pulmonary nodules, the majority of which are unchanged since at least 2019. 2. Stable changes of partial right nephrectomy. The findings, conclusions and recommendations within this report do not replace the initial findings, conclusions and recommendations made at the facility where the study was performed based upon the imaging and clinical condition at that time. Comparison with the prior report and clinical history is necessary. The provided images may or may not represent the [place] source data set and thus may contain changes that may lower the accuracy of this second-opinion interpretation. Electronically signed by: Chito Elder M.D. Narrative 02/12/2025 12:13 PM CDT EXAMINATION: RADIOLOGY CONSULTATION ON OUTSIDE IMAGING STUDY STUDY INITIALLY PERFORMED: 12/08/2024 at [facility]. TYPE OF STUDY: Multiple CT images of the chest, abdomen, and pelvis without contrast are provided at the time of this interpretation. CONTRAST ROUTE: No contrast was administered. The protocol was adequate to address the clinical question. The outside final report was not available at the time of this second opinion interpretation. TYPE OF CONSULTATION: Consult on outside imaging study with images submitted through Outside Image Sharing Service DATE OF CONSULTATION: 02/12/2025 12:06 PM HISTORY: Renal cell carcinoma, follow-up pulmonary nodules. COMPARISON: 11/06/2024 FINDINGS: Respiratory motion degrades images through the lungs. Allowing for this, there is an unchanged 6 mm right upper lobe pulmonary nodule on series 3 image 32. Unchanged 4 mm right lower lobe pulmonary nodule on series 3 image 41. Unchanged right middle lobe nodule measuring 4 mm on series 3 image 36. Unchanged 5 mild on series 3 image 20. Notably, the majority of these have been stable since at least 2019. No new pulmonary nodule or mass. No pleural effusion pneumothorax or pneumonic consolidation. Central airways appear widely patent. Normal heart size without pericardial effusion. Nonaneurysmal thoracic aorta. No axillary supraclavicular mediastinal or hilar lymphadenopathy. Multinodular thyroid. Unenhanced evaluation of the liver demonstrates no focal lesions or biliary duct dilatation. Cholelithiasis present without cholecystitis. Normal-appearing adrenal glands, pancreas, and spleen. No hydronephrosis or suspicious renal lesion. There are changes from partial right nephrectomy, unchanged. The abdominal aorta is atherosclerotic but nonaneurysmal. No abdominal or pelvic lymphadenopathy. Fibroid uterus. Decompressed urinary bladder. There is no free intraperitoneal fluid or free gas. No intestinal obstruction or focal bowel wall thickening. Colonic diverticulosis is present without diverticulitis. Normal appendix. There is severe central canal stenosis at T11. Multilevel thoracolumbar spine degenerative disc disease. Generalized osteopenia with probable sacral insufficiency fractures. Procedure Note Chito Elder MD - 02/12/2025 EXAMINATION: RADIOLOGY CONSULTATION ON OUTSIDE IMAGING STUDY STUDY INITIALLY PERFORMED: 12/08/2024 at [facility]. TYPE OF STUDY: Multiple CT images of the chest, abdomen, and pelvis without contrast are provided at the time of this interpretation. CONTRAST ROUTE: No contrast was administered. The protocol was adequate to address the clinical question. The outside final report was not available at the time of this second opinion interpretation. TYPE OF CONSULTATION: Consult on outside imaging study with images submitted through Outside Image Sharing Service DATE OF CONSULTATION: 02/12/2025 12:06 PM HISTORY: Renal cell carcinoma, follow-up pulmonary nodules. COMPARISON: 11/06/2024 FINDINGS: Respiratory motion degrades images through the lungs. Allowing for this, there is an unchanged 6 mm right upper lobe pulmonary nodule on series 3 image 32. Unchanged 4 mm right lower lobe pulmonary nodule on series 3 image 41. Unchanged right middle lobe nodule measuring 4 mm on series 3 image 36. Unchanged 5 mild on series 3 image 20. Notably, the majority of these have been stable since at least 2019. No new pulmonary nodule or mass. No pleural effusion pneumothorax or pneumonic consolidation. Central airways appear widely patent. Normal heart size without pericardial effusion. Nonaneurysmal thoracic aorta. No axillary supraclavicular mediastinal or hilar lymphadenopathy. Multinodular thyroid. Unenhanced evaluation of the liver demonstrates no focal lesions or biliary duct dilatation. Cholelithiasis present without cholecystitis. Normal-appearing adrenal glands, pancreas, and spleen. No hydronephrosis or suspicious renal lesion. There are changes from partial right nephrectomy, unchanged. The abdominal aorta is atherosclerotic but nonaneurysmal. No abdominal or pelvic lymphadenopathy. Fibroid uterus. Decompressed urinary bladder. There is no free intraperitoneal fluid or free gas. No intestinal obstruction or focal bowel wall thickening. Colonic diverticulosis is present without diverticulitis. Normal appendix. There is severe central canal stenosis at T11. Multilevel thoracolumbar spine degenerative disc disease. Generalized osteopenia with probable sacral insufficiency fractures. IMPRESSION: 1. Stable pulmonary nodules, the majority of which are unchanged since at least 2019. 2. Stable changes of partial right nephrectomy. The findings, conclusions and recommendations within this report do not replace the initial findings, conclusions and recommendations made at the facility where the study was performed based upon the imaging and clinical condition at that time. Comparison with the prior report and clinical history is necessary. The provided images may or may not represent the [place] source data set and thus may contain changes that may lower the accuracy of this second-opinion interpretation. Electronically signed by: Chito Elder M.D. lCaudia lGass MD [facility] [place]ED[place] Final Result * (ABNORMAL) eGFR (09/07/2023 4:28 PM CDT) eGFR 37(L) >=60 mL/min/1. 73 m2 Comment: Interpretive Data Reference Interval Normal >/= 90 mL/min/1.73m2 Mildly decreased* 60 - 89 mL/min/1.73m2 Mildly to moderately decreased 45 - 59 mL/min/1.73m2 Moderately to severely decreased 30 - 44 mL/min/1.73m2 Severely decreased 15 - 29 mL/min/1.73m2 Kidney Failure < 15 mL/min/1.73m2 *Relative to young adult level Estimated glomerular filtration rate is determined by the 2020 CKD-EPI equation recommended by the National Kidney Foundation (A Unifying Approach to GFR Estimation: Recommendations of the NKF-ASK Task Force on Reassessing the Inclusion of Race in Diagnosing Kidney Disease, JASN 2020). The CKD-EPI equation should not be used for patients with unstable renal function and has not been validated in children and those over 70. Current interpretive data was last reviewed 2021. Blood 09/07/2023 4:28 PM CDT 09/07/2023 6:15 PM CDT Theodora Lee MD LAB BLOOD ORDERABLES Final Result [facility] [address] Department [place] [address] * POCT hemoglobin A1c (02/07/2023 10:59 AM CDT) Hgb A1C, POC 5.1 4.0 - 5.6 % Est Average Gluc POC 100 mg/dL [facility] Comment: The ADA recommends reporting an estimated Average Glucose (eAG) with all Hemoglobin A1c results using the equation derived from a study of 507 normal and diabetic adults. Minority populations were underrepresented and children were not included. (Diabetes Care 31:7707-2436, 2008). The eAG is not equivalent to a fasting glucose. 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
--- OUTSIDE RECORDS SUMMARY | 2025-04-21 15:21 | XMS_ITS ---
Author Organization [facility] Care Team Providers Care Drug Safety Associate Name Role Phone Kael Belle Unavailable Unavailable JEROME MOJICA Unavailable Allergies and adverse reactions Code CodeSystem Substance Reaction Severity StartDate Concern Status Cipro Unknown 08/26/2014 active 7984 RXNORM Penicillin Unknown 08/26/2014 active Care Team Name Role Address Phone Organization Dates JEROME MOJICA [address], [address], [place] (Office): : [facility] 08/26/2014 - 10/23/2014 Kael Belle [facility], [address], [place] (Office): : [facility] 08/26/2014 - 10/23/2014 Mental Status Section Date Assessment Total Score Description 10/23/2014 BIMS 15 cognitively int act PHQ-9 03 minimal depress ion 09/04/2014 BIMS 15 cognitively int act PHQ-9 03 minimal depress ion Insurance Providers Coverage Status Coverage Type Relationship to Subscriber Member Identifier Subscriber Identifier Group Identifier Payer Identifier and Other information Code: 1 Code System OID:[id number] .[id number]. 221.5 Code System Name: Source of Payment Typology (PHDSC) Display: Medicare Translation: Code: MB Code System: OID:[id number] .[id number]. 255.1336 Code System Name: Insurance Type Code ([id number]) Display Name: Medicare Part B 2014 Code: 349 Code System OID:[id number] .[id number]. 221.5 Code System Name: Source of Payment Typology (PHDND) Display: Other Translation: Code: C1 Code System: OID:[id number] .[id number]. 255.1336 Code System Name: Insurance Type Code ([id number]) Display Name: Commercial Insurance Code: SELF Code System Name: HL7 RoleCode Code System OID:[id number] [id number] Display Name: Self [id number] Root: [id number] Payer Name: BCBS - DO NOT USE Address: BCBS Default Address Reason for Referral No Reasons for Referral Entered Social History Social History Observation Description Start Date End Date Code Code System Current Smoking Status Tobacco smoking consumption unknown [id number] SNOMED CT Sex Assigned At Female 1950 64442-3 LOINC Gender Identity Sexual Orientation Vital Signs Code Code System Vitals Name Values and Units Timing Information 01638-1 LOINC Pain Level Value=0.0 10/23/2014 2339-0 LOINC Blood Sugar Gtrbf=332.0 Units=mg/dL 10/23/2014 8310-5 LOINC Body Temperature Value=97.9 Units= F 10/21/2014 9279-1 LOINC Respiratory Rate Value=18.0 Units=/m in 10/19/2014 8462-4 LOINC Blood Pressure-Diastolic Value=54 Un its=mmHg 10/19/2014 8480-6 LOINC Blood Pressure-Systolic Phosd=711 Un its=mmHg 10/19/2014 8867-4 LOINC Heart rate Cddhv=339.0 Units=/min 10/19/2014 35183-3 LOINC Weight Pgppx=463.0 Units=Lbs 01/2015 8302-2 LOINC Height Value=66.0 Units=Inches 09/15/2014
--- OUTSIDE RECORDS SUMMARY | 2025-04-21 15:21 | XMS_ITS | Encounter Summary ---
Author Organization [facility] Address [address] [place] [address] Phone Care Team Providers Care President Practicing Urologist Name Role Phone Unavailable Primary Care Provider Unavailabl e Encounter Details Date Type Department Care Team (Late st Contact Info) Description 05/20/2020 Lab Requisition 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 Gender Identity Not on file Sexual Orientation Not on file documented as of this encounter Plan of Treatment Not on file documented as of this encounter Procedures Procedure Name Priority Date/Time Associated Diagnosis Comments BASIC METABOLIC PANEL W/ CALCIUM TOTAL Routine 05/20/2020 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 Hypokalemia documented in this encounter Results * (ABNORMAL) BASIC METABOLIC PANEL W/ CALCIUM TOTAL (05/20/2020 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) SODIUM 132(L) 133 - 145 mmol/L 05/20/2020 8:39 PM [facility] POTASSIUM 4.7 3.5 - 5.1 mmol/L 05/20/2020 8:39 PM [facility] CHLORIDE 93(L) 96 - 108 mmol/L 05/20/2020 8:39 PM [facility] CO2, VENOUS 30 21 - 32 mmol/L 05/20/2020 8:39 PM [facility] ANION GAP 13.7 10.0 - 20.0 mmol/L 05/20/2020 8:39 PM [facility] GLUCOSE 172(H) 80 - 115 mg/dL 05/20/2020 8:39 PM [facility] BUN 72(H) 6 - 19 mg/dL 05/20/2020 8:39 PM [facility] CREATININE, BLOOD 1.80(H) 0.40 - 1.10 mg/dL 05/20/2020 8:39 PM [facility] BUN/CREATININE RATIO 40(H) 12 - 20 ratio 05/20/2020 8:39 PM [facility] CALCIUM 10.0 8.8 - 10.0 mg/dL 05/20/2020 8:39 PM [facility] Blood No Phlebotomy Charged / Unknown 05/20/2020 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
--- OUTSIDE RECORDS SUMMARY | 2025-04-21 15:21 | XMS_ITS | Continuity of Care Document ---
Author Organization [facility], [facility] ([place]) Address [address] [place] [address] [place] [address] Care Team Providers Care Cigar Tobacco Rehandler Name Role Phone JEROME MOJICA Primary Care Provider JACQUELINE JEONG Hand Bookbinder THEODORA LEE Hand Bookbinder Assessment Encounter Date Assessment Date Assessment LastModified by Organization Details LastModified Time 03/07/2025 03/07/2025 Ms. 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 C hronic kidney disease stage III with a baseline serum creatinine ranging between 1.3 1 .6. Patient's most recent serum creatinine is stable at 1.2 with a GFR of 44 as reported per patient from her lab work done on 03/19. Patient continues to hydrate well and to avoid NSAIDs. She also follows up with [facility] nephrology once a year-as she follows up with hematology/oncolog y and urology there aswell Patient will get a CBC and BMP every 2 weeks with weights dropped to weekly from daily. Bilateral renal masses concerning for renal cell carcinoma status post robotic partial nephrectomy of the right kidney in January 2023 Patient continues to follow with urology at [facility]. New diagnosis of lung cancer earlier in the year and she follows with hematology/oncolog y at [facility] Discussed about KDIGO recommendations to prevent CKD progression -Advised to undertake moderate-intensity physical activity for a cumulative duration of at least 150 minutes per week, or to a level compatible with their cardiovascular and physical tolerance -Patients should consume a balanced, healthy diet that is high in vegetables, , plant-based proteins, unsaturated fats, and lower in processed meats, refined carbohydrates, and sweetened beverages. -Sodium (<2 g/day) and protein intake (0.8 g/kg/day) in accordance with recommendations for the general population. - Suggest NOT to prescribe bisphosphonate treatment in people with GFR o30 ml/min/1.73 m2 (GFR categories G4-G5) without a strong clinical rationale. -Individualize Hba1c target goal of 6.5 to 8 % based on underlying comorbidities -Cessation of tobacco -Avoid Nephrotoxic agents -such as NSAIDS renal dosage of all medications to the appropriate GFR CKD/MBD Calcium and phosphorus are within normal range. Anemia of chronic disease Will hold Procrit for now given new diagnosis of lung ca and renal ca ,hemoglobin in 9-10 -increase ferrous sulphate to 3 pills daily ,appt with Hematology/oncolog y - -[place] [facility] Hypertension Patient's blood pressure is under good control. Patient will continue with her current med regimen and continue to follow a low-sodium diet. The patient had the opportunity to ask and have questions answered. The patient voiced an understanding of the diagnosis and of the care plan and intent to comply with it. [email or web address] Not available 03/07/2025 16:11:31 Plan of Treatment Reminders Order Date Submit Date Provider Last Modified By Organization Details Last Modified Time Details Appointments Estabreg palacios Patient 15.EST 2025 12:45P M Dr. Vish Chacko Not available Not available Not available Establi shed Patient 15.EST 2025 10:00A M Dr. Vish Chacko Not available Not available Not available Estabreg shed Patient 15.EST 2025 10:45A M Dr. Theodora Lee Not available Not available Not available Establi shed Patient 15.EST 2025 10:15A M Dr. Sandrine Rosario Not available Not available Not available New Patient Visit 15.NEW 2025 10:30A M Dr. Vish Chacko Not available Not available Not available Lab None recorde d. Referral None recorde d. Procedures None recorde d. Surgeries None recorde d. Imaging None recorde d. Medication Orders None recorde d. Patient TargetsNo targets recorded. Patient InstructionsNo instructions recorded. Reason for Referral None Reported. Problems Name Problem SNOMED Code Status Onset Date Resolution Date Notes Provider Name and Address Organization Details Recorded Time Renal insufficie ncy 177741272 Active 2023 Jenn Arteaga [facility] 4 08:56:10 Anemia 627103975 Active 2023 [facility] 4 08:56:23 Chronic kidney disease 872270981 Active 2023 HEATH VICK MD [address] [place] [address], [phone] , [facility] 4 12:27:05 Chronic kidney disease stage 3 977592705 Active 2023 [facility] 4 08:57:00 Edema 822742584 Active 2023 [facility] 4 08:57:14 Essential hypertensi on 25654204 Active 2023 [facility] 4 08:57:29 Hypokalemi a 78463549 Active [address] [facility] 4 08:58:04 Iron deficiency anemia 10971578 Active 2023 [facility] 4 08:58:14 Kidney disease 89201071 Active 2023 [facility] 4 09:00:40 Recurrent urinary tract infection 372630610 Active 2023 HEATH VICK MD [address] [place] [address], [phone] , [facility] 4 12:26:47 Hyperglyce haroon due to type 2 diabetes mellitus 9391546585385 09 Active 2023 [facility] 09:[facility]20 Urinary tract infectious disease 40209573 Active 2023 Jenn Arteaga null, [facility] 4 09:01:30 Acute urinary tract infection 156406918 Active 2023 [facility] 4 16:25:46 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 82991742 Active 2023 Andre Berumen null, [facility] 5 12:50:26 Itching 330118598 Active 2023 [facility] 4 11:40:34 Atrophic vaginitis 91619115 Active 2023 HEATH VICK MD [address] [place] [address], [address] , [facility] 4 12:26:43 Abnormal urinalysis 684271369 Active 2023 HEATH VICK MD [address] [place] [address], [address] , [facility] 4 12:26:54 Abscess 650961826 Active 2024 SANDRINE ROSARIO MD [address] [place] [address], [address] , [facility] 5 12:58:50 Abscess of back 360583066 Active 2024 Sarkis Ramírez MD [address] [place], [address] , [facility] 5 11:17:09 Seborrheic keratosis 243435565 Active 2024 Sarkis Ramírez MD [address] [place], [address] , [facility] 5 11:17:13 Lentiginos is 706198350 Active 2024 Sarkis Ramírez MD [address] [facility] [place], [address] , [facility] 5 11:17:15 Epidermoid cyst 435620126 Active 2024 Sarkis Ramírez MD [address] [place] [address], [address] , [facility] 5 11:17:22 Cyst of skin 297572649 Active 2024 Selene Vazquez [facility] 5 11:14:13 Epidermoid cyst of skin of back 574963898 Active 2024 Sarkis Ramírez MD [address] [place] [address], [address] , [facility] 5 11:43:05 Epidermoid cyst of skin 592159731 Active 2024 Sarkis Ramírez MD [address] [place] [address], [address] , [facility] 5 13:36:13 Candidiasi s of skin 44894815 Active 2024 Andre Camarenat [facility] 5 14:30:53 Problem Notes None recorded. Medical Equipment None Reported. Allergies Allergen ID Allergen Name Allergen Category Reaction Reaction Severity Criticality Documentation Date Start Date Code Code System Note Provider Name and Address Organization Details Recorded Time 4720973 Product containin g penicilli n (product) medicatio n hives Not available Not available 06/14/2024 90729 8001 SNOMED Selene Vazquez [facility] 5 10:52:47 8900735 doxycycli ne Not available hives Not available Not available 08/13/2024 3640 RxNorm Brooke Koko [facility] 5 12:18:40 1414494 Cipro medicatio n Not available Not available Not available 10/04/202496678 3 RxNorm unrec ogniz ed react ion (text : Hives , code: 25111 2004) ([facility] 5 12:20:36 [id number] ciproflox acin medicatio n hives other Not available Not available [facility] 10/04/20242014 2551 RxNorm Unabl e to asses s Other react ion(s ): Other (see comme nt) Unabl e to asses s Unabl e to asses s Other react ion(s ): Other (see comme nt) Unabl e to asses s Unabl e to asses s Other react ion(s ): Other (see comme nt) Unabl e to asses s Other react ion(s ): Other (see comme nt) Unabl e to asses s Unabl e to asses s Other react ion(s ): Other (see comme nt) Unabl e to asses s Unabl e to asses s Other react ion(s ): Other (see comme nt) Unabl e to asses s Unabl e to asses s Other react ion(s ): Other (see comme nt) Unabl e to asses s Unabl e to asses s Other react ion(s ): Other (see comme nt) Unabl e to asses s [facility] 5 12:20:41 [id number] clindamyc in Not available Not available Not available [facility] 10/04/20242019 2582 RxNorm Other react ion(s ): GI Upset Other react ion(s ): GI Upset Other react ion(s ): GI Upset unrec ogniz ed react ion (text : Stoma ch upset , code: 56103 9005) [facility] 5 12:20:46 [id number] ciproflox acin hydrochlo ride medicatio n Not available Not available Not available 05/23/20232007 20493 RxNorm Not Available [facility] 4 23:38:20 475996 Iodinated contrast media (substanc e) medicatio n Not available Not available Not available 05/23/20232018 63788 2004 SNOMED Not Available [facility] 4 23:38:20 452021 fentanyl medicatio n rash Not available Not available 05/23/20232020 4337 RxNorm Not Available [facility] 4 23:38:20 Medications Name Sig Start Date Stop Date Status Note LastModified by Organization Details LastModified Time metolazone 2.5 mg tablet 11/23 completed Not Available Not Available Not Available atorvastati n 40 mg tablet active Not Available Not Available Not Available Augmentin 875 mg-125 mg tablet Take 1 tablet every 12 hours by oral route for 10 days. 10/15 completed Not Available Not Available Not Available Procrit 10,000 unit/mL injection solution Take 1 mL every week by injection route. 2024 active Not Available Not Available Not Avai lable albuterol sulfate 0.63 mg/3 mL solution for nebulizatio n active Not Available Not Available Not Available ferrous gluconate 324 mg tablet Take 1 tablet twice a day by oral route. 12/08 completed Not Available Not Available Not Available Colace 100 mg capsule Take 1 capsule every day by oral route. active Not Available Not Available No t Available gabapentin 600 mg tablet active Not Available Not Available Not Available cefuroxime axetil 250 mg tablet 10/15 completed Not Available Not Available Not Available torsemide 20 mg tablet TAKE 80MG BID- MORNING AND NIGHT 2024 active Not Available Not Available Not Avai lable clindamycin HCl 300 mg capsule Take 1 capsule every 6 hours by oral route with meal(s) for 5 days, for abscess. 10/15 completed Not Available Not Available Not Available citalopram 10 mg tablet active Not Available Not Available Not Available albuterol sulfate 1.25 mg/3 mL solution for nebulizatio n active Not Available Not Available Not Available cephalexin 250 mg capsule 11/23 completed Not Available Not Available Not Available ondansetron HCl 4 mg tablet active Not Available Not Available Not Available benzoyl peroxide 10 % topical cleanser WASH THE AFFECTED AREA(S) BY TOPICAL ROUTE EVERY OTHER DAY, ALTERNATI NG WITH HIBICLENS 2024 active Not Available Not Available Not Avai lable ciprofloxac in 250 mg tablet 10/15 completed Not Available Not Available Not Available sulfamethox azole 800 mg-trimetho prim 160 mg tablet 10/15 completed Not Available Not Available Not Available doxycycline monohydrate 100 mg tablet 11/23 completed Not Available Not Available Not Available triamcinolo ne acetonide 0.1 % topical cream active Not Available Not Available Not Available spironolact one 25 mg tablet Take 1 tablet every day by oral route for 90 days. active Not Available Not Available No t Available potassium chloride ER 20 mEq tablet,exte nded release(par t/cryst) active Not Available Not Available Not Available magnesium oxide 400 mg (241.3 mg magnesium) tablet Take by oral route as directed. active Not Available Not Available No t Available zinc gluconate 30 mg tablet Take 1 tablet twice a day by oral route for 90 days. 2024 active Not Available Not Available Not Avai lable Vitamin C 1,000 mg tablet Take by oral route as directed. active Not Available Not Available No t Available baclofen 10 mg tablet 11/23 completed Not Available Not Available Not Available cephalexin 500 mg capsule Take 1 capsule twice a day by oral route for 7 days. 12/21 completed Not Available Not Available Not Available pantoprazol e 40 mg tablet,caryl yed release Take 1 tablet every day by oral route. active Not Available Not Available No t Available ferrous sulfate 325 mg (65 mg iron) tablet Take 1 tablet every day by oral route for 90 days. 2023 active Not Available Not Available Not Avai lable Procrit 20,000 unit/mL injection solution 11/23 completed Not Available Not Available Not Available metoprolol succinate ER 25 mg tablet,exte nded release 24 hr active Not Available Not Available Not Available nystatin 100,000 unit/gram topical powder APPLY TO THE AFFECTED AREA(S) UNDER SKIN FOLDS AND INNER THIGHS BY TOPICAL ROUTE DAILY 2024 active Not Available Not Available Not Avai lable fluocinonid e 0.05 % topical solution active Not Available Not Available Not Available levofloxaci n 500 mg tablet Take 1 tablet every 24 hours by oral route for 10 days. 09/13 completed Not Available Not Available Not Available estradiol 0.01% (0.1 mg/gram) vaginal cream Insert a pea sized amount into the vaginal opening once daily for 2 weeks and then twice a week for 2 weeks then stop. active Not Available Not Available No t Available albuterol sulfate HFA 90 mcg/actuati on aerosol inhaler active Not Available Not Available Not Available clobetasol 0.05 % scalp solution active Not Available Not Available Not Available cefdinir 300 mg capsule 10/15 completed Not Available Not Available Not Available Hibiclens 4 % topical liquid Use daily in the shower as a wash. Okay to use on external groin. 2024 active Not Available Not Available Not Avai lable Augmentin 500 mg-125 mg tablet Take 1 tablet every 12 hours by oral route for 5 days. 10/15 completed Not Available Not Available Not Available Tums 200 mg (as calcium carbonate 500 mg) chewable tablet Take by oral route as needed. active Not Available Not Available No t Available loratadine 10 mg tablet Take 1 tablet every day by oral route. active Not Available Not Available No t Available cranberry 500 mg capsule Take by oral route as directed. active Not Available Not Available No t Available oxycodone 5 mg tablet 11/23 completed Not Available Not Available Not Available clindamycin 1 % lotion APPLY A THIN LAYER TO THE AFFECTED AREA(S) (buttocks , groin, axilla) BY TOPICAL ROUTE 2 TIMES PER DAY 2024 active Not Available Not Available Not Avai lable aripiprazol e 10 mg tablet 11/23 completed Not Available Not Available Not Available aripiprazol e 15 mg tablet 11/23 completed Not Available Not Available Not Available Novolog FlexPen U-100 Insulin aspart 100 unit/mL (3 mL) subcutaneou s active Not Available Not Available Not Available aripiprazol e 5 mg tablet active Not Available Not Available Not Available Florastor 250 mg capsule Take by oral route as directed. active Not Available Not Available No t Available cholecalcif maximo (vitamin D3) 1,000 UI daily active Not Available Not Available No t Available ferrous gluconate 324 mg (38 mg iron) tablet Take 1 tablet 3 times a day by oral route. 2024 active Not Available Not Available Not Avai lable Venofer 200 mg iron/10 mL intravenous solution Inject 200 mg by intraveno us route. active Not Available Not Available No t Available ferrous gluconate 324 mg (37.5 mg iron) tablet Take 1 tablet twice a day by oral route for 90 days. 10/12 completed Not Available Not Available Not Available potassium chloride ER 20 mEq tablet,exte nded release Take 4 tablets every day by oral route. 2023 active Not Available Not Available Not Avai lable Basaglar KwikPen U-100 Insulin 100 unit/mL (3 mL) subcutaneou s active Not Available Not Available Not Available Fiasp U-100 Insulin 100 unit/mL subcutaneou s solution active Not Available Not Available N ot Available Trelegy Ellipta 100 mcg-62.5 mcg-25 mcg powder for inhalation active Not Available Not Available N ot Available Fiasp FlexTouch U-100 Insulin 100 unit/mL (3 mL) subcutaneou s pen active Not Available Not Available Not Available Adult Aspirin Regimen 81 mg tablet,caryl yed release Take 1 tablet every day by oral route. active Not Available Not Available No t Available Vitals Date Recorded Body height Body mass index (BMI) Body weight Heart rate Systolic And Diastolic Provider Name and Address Organization Details Last Updated DateTime 03/07/2025 167.64 cm 36 kg/m2 614839.1 g 104 /min 128/66 mm[Hg] [facility] 03/07/2025 14:59:28 Social History None recorded. Functional Status None recorded. Mental Status None recorded. Family History Nothing Reported. Medical History Condition Response Anemia Y Cancer Y Gynecological HistoryNo gynecological history recorded. Obstetrics History GPAL:G 0 P 0 0 0 0 Immunizations Vaccine Type Date Status Note Provider Nam e and Address Organization Details Recorded Time COVID-19, mRNA, LNP-S, PF, 30 mcg/0.3 mL dose 1 [facility] 12:19:45 COVID-19, mRNA, LNP-S, PF, 30 mcg/0.3 mL dose 1 completed [facility]/04[facility]24 12:19:45 COVID-19, mRNA, LNP-S, PF, 30 mcg/0.3 mL dose 2 completed [facility] 10/04/2024 12:19:45 COVID-19, mRNA, LNP-S, PF, 30 mcg/0.3 mL dose 1 completed [facility] 10/04/2024 12:19:45 COVID-19, mRNA, LNP-S, bivalent, PF, 30 mcg/0.3 mL dose 2 completed Phylicia Fithian [facility] 10/04/2024 12:19:45 pneumococcal polysaccharide PPV23 8 completed Phylicia Fithian [facility] 10/04/2024 12:19:45 Pneumococcal conjugate PCV 13 7 completed Phylicia Fithian [facility] 10/04/2024 12:19:45 Pneumococcal conjugate PCV 13 7 completed Phylicia Fithian [facility] 10/04/2024 12:19:45 Influenza, high-dose, trivalent, PF 7 completed Phylicia Fithian [facility] 10/04/2024 12:19:45 Influenza, split virus, trivalent, preservative 4 completed [facility] 10/04/2024 12:19:45 Influenza, split virus, trivalent, PF 7 completed [facility] 10/04/2024 12:19:45 influenza, whole 8 completed [facility] 10/04/2024 12:19:45 Influenza, split virus, quadrivalent, PF 8 completed [facility] 10/04/2024 12:19:45 COVID-19, mRNA, LNP-S, PF, suzie-sucrose, 30 mcg/0.3 mL 4 completed Phylicia Wall [facility] 10/04/2024 12:20:23 Past Encounters Encounter ID Performer Location Encounter Start Date Encounter Closed Date Diagnosis/Indication Diagnosis SNOMED-CT Code Diagnosis ICD10 Code Diagnosis IMO Codes Diagnosis Note [id number] Jacqueline Jeong PA-C [facility] ([place]) [address] [place] [address] 03/07/2025 14:30:50 03/07/2025 15:31:24 Chronic kidney disease stage 3 832076671 N18.30 Essential hypertension 07992497 I10 Hypokalemia 67973260 E87 .6 Edema 548262250 R60.9 Iron defic iency anemia 15588831 D50.9 Health Concerns Section Related Observation LastModified by Organization Detai ls LastModified Time None Recorded Concern Status LastModified by Organization Details LastModified Time None Recorded Payers Encounter Date Sequence Insurance Name Policy Number Policy Nicholson Covered Member ID Nicholson Member ID Guarantor Name 03/07/2025 1 [facility] - DUAL OPTIONS (MEDICARE - MEDICAID REPLACEMENT HMO) [id number] Luis F Del Rio [id number] Marleny Del Rio Notes Date Note Type Note Provider Name and Address Organization Details Recorded Time 03/07/2025 text/html ROS as noted in the HPI Ms. 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 Patient denies any fever, chills, or sweats. She denies any chest pain or shortness of breath. She is seated comfortably in a wheelchair and accompanied by staff from her [facility]. Patient did not bring lab work with her but reports that her kidney function is stable. She continues to hydrate well and to avoid NSAIDs. Jacqueline Jeong PA-C [address] [place] [address], [phone], [facility] 03/07/2025 16:12:35 OBGyn Episode No OBEpisode recorded.
--- OUTSIDE RECORDS SUMMARY | 2025-04-21 15:21 | XMS_ITS ---
Author Organization Unknown Address [address] [place] [address] [phone] Phone Care Team Providers Care Chip Tester Name Role Phone ADA Servin Attending Unavailable GALINA Hall Primary Unavailable Immunization [...] em Smoking History Never smoker (Never Smoked) [id number] SNOMED CT Sex Female Gender Identity Female [id number] Medications Medication Start Date End Date Route Frequency Dose Code Code System Medication Instructions Home Meds dilTIAZem HCl 180MG Oral Capsule, Extended Release, 24 HR 06/03/2017 Unknown ORAL ONCE A DAY 180 MILLIGRAMS 502037 RxNorm TAKE 180 MILLIGRAMS ORAL ONCE A DAY Aspirin 81MG Oral Tablet, Enteric Coated 06/03/2017 Unknown ORAL ONCE A DAY 162 MILLIGRAMS 717985 RxNorm TAKE 162 MILLIGRAMS ORAL ONCE A DAY Gabapentin 300MG Oral Capsule 06/03/2017 Unknown ORAL THREE TIMES A DAY 300 MILLIGRAMS 104505 RxNorm TAKE 300 MILLIGRAMS ORAL THREE TIMES A DAY Levemir FlexPen 100U/1ML Subcutaneous Solution 06/03/2017 Unknown SUBCUTA NEOUS AT BEDTIME 33 UNITS 224828 RxNorm INJECT INTO 33 UNITS SUBCUTANEOUS AT BEDTIME Magnesium Oxide 400MG Oral Tablet 06/03/2017 Unknown ORAL ONCE A DAY 400 MILLIGRAMS 387851 RxNorm TAKE 400 MILLIGRAMS ORAL ONCE A DAY Montelukast Sodium 10MG Oral Tablet 06/03/2017 Unknown ORAL AT BEDTIME 10 MILLIGRAMS 014596 RxNorm TAKE 10 MILLIGRAMS ORAL AT BEDTIME Polyethylene Glycol 17GM/1Dose Oral Powder for Solution 06/03/2017 Unknown ORAL NEEDED DAILY 17 GRAMS RxNorm TAKE 17 GRAMS ORAL NEEDED DAILY Potassium Chloride 10MEQ Oral Tablet, Extended Release 06/03/2017 Unknown ORAL TWICE A DAY 20 MEQ 815594 RxNorm TAKE 20 MEQ ORAL TWICE A DAY Spironolacto ne 25MG Oral Tablet 06/03/2017 Unknown ORAL TWICE A DAY 25 MILLIGRAMS 572523 RxNorm TAKE 25 MILLIGRAMS ORAL TWICE A DAY Vitamin D3 2000 IU Oral Capsule, Liquid Filled 06/03/2017 Unknown ORAL ONCE A DAY 2000 UNITS 298515 RxNorm TAKE 2000 UNITS ORAL ONCE A DAY metFORMIN HCl 1000MG Oral Tablet 06/03/2017 Unknown ORAL TWICE A DAY WITH MEALS 1000 MILLIGRAMS 689351 RxNorm TAKE 1000 MILLIGRAMS ORAL TWICE A DAY WITH MEALS Nystatin 279930B/1GM Topical application Cream 10/16/2017 Unknown TOPICAL EVERY 12 HOURS 1 APPLICATION 309359 RxNorm APPLY TO AFFECTED AREA TOPICAL EVERY 12 HOURS Pantoprazole Sodium 40MG Oral Tablet, Enteric Coated 10/16/2017 Unknown BY MOUTH ONCE A DAY 40 MILLIGRAMS 770072 RxNorm TAKE 40 MILLIGRAMS BY MOUTH ONCE A DAY Florastor 250 MG Oral Capsule 10/16/2017 Unknown BY MOUTH TWICE A DAY 250 MILLIGRAMS RxNorm TAKE 250 MILLIGRAMS BY MOUTH TWICE A DAY Abilify 20MG Oral Tablet 10/16/2017 Unknown ORAL ONCE A DAY 20 MILLIGRAMS 476033 RxNorm TAKE 20 MILLIGRAMS ORAL ONCE A DAY Acetaminophe n 325MG Oral Tablet 10/16/2017 Unknown ORAL NEEDED EVERY 6 HOURS 650 MILLIGRAMS 484731 RxNorm TAKE 650 MILLIGRAMS ORAL NEEDED EVERY 6 HOURS Albuterol Sulfate 0.083% Inhalation Solution 10/16/2017 Unknown INHALAT ION NEEDED 4 TIMES A DAY 1 VIAL 110482 RxNorm 1 VIAL INHALATION NEEDED 4 TIMES A DAY Breo Ellipta 200MCG-25MCG /1Act Inhalation Powder 10/16/2017 Unknown INHALAT ION ONCE A DAY 1 PUFF 6309931 RxNorm 1 PUFF INHALATION ONCE A DAY Docusate 100MG Oral Capsule, Liquid Filled 10/16/2017 Unknown ORAL AT BEDTIME 200 MILLIGRAMS 9638048 RxNorm TAKE 200 MILLIGRAMS ORAL AT BEDTIME Vitamin D 80433OJ Oral Capsule 10/16/2017 Unknown ORAL ONCE A WEEK 27427 UNITS 6881262 RxNorm TAKE 14125 UNITS ORAL ONCE A WEEK Zetia 10MG Oral Tablet 10/16/2017 Unknown ORAL AT BEDTIME 10 MILLIGRAMS 553230 RxNorm TAKE 10 MILLIGRAMS ORAL AT BEDTIME Melatonin 3 MG Oral Tablet 10/16/2017 Unknown BY MOUTH AT BEDTIME 3 MILLIGRAMS 224825 RxNorm TAKE 3 MILLIGRAMS BY MOUTH AT BEDTIME Furosemide 80MG Oral Tablet 03/13/2018 Unknown BY MOUTH ONCE A DAY 80 MILLIGRAMS 551534 RxNorm TAKE 80 MILLIGRAMS BY MOUTH ONCE [...] Date Status Code Code System PYELONEPHRITIS active 01220802 SNOME D-CT SUPRAVENTRICULAR TACHYCARDIA active 3140031 SNOMED-CT BED-RIDDEN active 941710172 SNOMED-CT SPRAINED RIGHT ANKLE, INITIAL ENCOUNTER active [id number] SNOME D-CT CELLULITIS OF RIGHT LEG active 055734 13769422839 SNOMED-CT Allergies and Adverse Reactions Allergy Substance Reaction Severity Start Date Concern Status Co de Code System PCN (penicillin) Hives (SNOMED-CT: 367939364) Moderate Active GLYBURIDE Moderate Active 4815 RxNorm CONTRAST MEDIA, IODINE RELATED Hives (SNOMED-CT: 525829931), SOB (SNOMED-CT: 022552782) Severe Active CIPRO Hives (SNOMED-CT: 290666298) Moderate Active 167460 RxNorm Plan of Treatment Julio Established Patient 025 Aura Established Patient 025 Aura Established Patient 026 Encounters Encounter Diagnosis Start Date Code Code Sys tem Other fecal abnormalities 12/03/2024 SN OMED-CT Personal Care Team Section Performer Name Performer Role Active Date Inactive TRAN Over[place] PCP - Primary care physician
--- OUTSIDE RECORDS SUMMARY | 2025-04-21 15:21 | XMS_ITS ---
Author Organization Unknown Address [address] [place] [address] [phone] Phone Care Team Providers Care Sba Business Development Officer Name Role Phone BLANK GROSSMAN Attending Unavailable GALINA Hall Primary Unavailable Immunization [...] em Smoking History Never smoker (Never Smoked) [id number] SNOMED CT Sex Female Gender Identity Female [id number] Medications Medication Start Date End Date Route Frequency Dose Code Code System Medication Instructions Home Meds dilTIAZem HCl 180MG Oral Capsule, Extended Release, 24 HR 06/03/2017 Unknown ORAL ONCE A DAY 180 MILLIGRAMS 986495 RxNorm TAKE 180 MILLIGRAMS ORAL ONCE A DAY Aspirin 81MG Oral Tablet, Enteric Coated 06/03/2017 Unknown ORAL ONCE A DAY 162 MILLIGRAMS 932117 RxNorm TAKE 162 MILLIGRAMS ORAL ONCE A DAY Gabapentin 300MG Oral Capsule 06/03/2017 Unknown ORAL THREE TIMES A DAY 300 MILLIGRAMS 309831 RxNorm TAKE 300 MILLIGRAMS ORAL THREE TIMES A DAY Levemir FlexPen 100U/1ML Subcutaneous Solution 06/03/2017 Unknown SUBCUTA NEOUS AT BEDTIME 33 UNITS 441993 RxNorm INJECT INTO 33 UNITS SUBCUTANEOUS AT BEDTIME Magnesium Oxide 400MG Oral Tablet 06/03/2017 Unknown ORAL ONCE A DAY 400 MILLIGRAMS 943294 RxNorm TAKE 400 MILLIGRAMS ORAL ONCE A DAY Montelukast Sodium 10MG Oral Tablet 06/03/2017 Unknown ORAL AT BEDTIME 10 MILLIGRAMS 442292 RxNorm TAKE 10 MILLIGRAMS ORAL AT BEDTIME Polyethylene Glycol 17GM/1Dose Oral Powder for Solution 06/03/2017 Unknown ORAL NEEDED DAILY 17 GRAMS RxNorm TAKE 17 GRAMS ORAL NEEDED DAILY Potassium Chloride 10MEQ Oral Tablet, Extended Release 06/03/2017 Unknown ORAL TWICE A DAY 20 MEQ 934455 RxNorm TAKE 20 MEQ ORAL TWICE A DAY Spironolacto ne 25MG Oral Tablet 06/03/2017 Unknown ORAL TWICE A DAY 25 MILLIGRAMS 909317 RxNorm TAKE 25 MILLIGRAMS ORAL TWICE A DAY Vitamin D3 2000 IU Oral Capsule, Liquid Filled 06/03/2017 Unknown ORAL ONCE A DAY 2000 UNITS 466025 RxNorm TAKE 2000 UNITS ORAL ONCE A DAY metFORMIN HCl 1000MG Oral Tablet 06/03/2017 Unknown ORAL TWICE A DAY WITH MEALS 1000 MILLIGRAMS 342374 RxNorm TAKE 1000 MILLIGRAMS ORAL TWICE A DAY WITH MEALS Nystatin 204426O/1GM Topical application Cream 10/16/2017 Unknown TOPICAL EVERY 12 HOURS 1 APPLICATION 476964 RxNorm APPLY TO AFFECTED AREA TOPICAL EVERY 12 HOURS Pantoprazole Sodium 40MG Oral Tablet, Enteric Coated 10/16/2017 Unknown BY MOUTH ONCE A DAY 40 MILLIGRAMS 045533 RxNorm TAKE 40 MILLIGRAMS BY MOUTH ONCE A DAY Florastor 250 MG Oral Capsule 10/16/2017 Unknown BY MOUTH TWICE A DAY 250 MILLIGRAMS RxNorm TAKE 250 MILLIGRAMS BY MOUTH TWICE A DAY Abilify 20MG Oral Tablet 10/16/2017 Unknown ORAL ONCE A DAY 20 MILLIGRAMS 960667 RxNorm TAKE 20 MILLIGRAMS ORAL ONCE A DAY Acetaminophe n 325MG Oral Tablet 10/16/2017 Unknown ORAL NEEDED EVERY 6 HOURS 650 MILLIGRAMS 662805 RxNorm TAKE 650 MILLIGRAMS ORAL NEEDED EVERY 6 HOURS Albuterol Sulfate 0.083% Inhalation Solution 10/16/2017 Unknown INHALAT ION NEEDED 4 TIMES A DAY 1 VIAL 950624 RxNorm 1 VIAL INHALATION NEEDED 4 TIMES A DAY Breo Ellipta 200MCG-25MCG /1Act Inhalation Powder 10/16/2017 Unknown INHALAT ION ONCE A DAY 1 PUFF 0834325 RxNorm 1 PUFF INHALATION ONCE A DAY Docusate 100MG Oral Capsule, Liquid Filled 10/16/2017 Unknown ORAL AT BEDTIME 200 MILLIGRAMS 5934905 RxNorm TAKE 200 MILLIGRAMS ORAL AT BEDTIME Vitamin D 35218IL Oral Capsule 10/16/2017 Unknown ORAL ONCE A WEEK 75286 UNITS 0227629 RxNorm TAKE 11627 UNITS ORAL ONCE A WEEK Zetia 10MG Oral Tablet 10/16/2017 Unknown ORAL AT BEDTIME 10 MILLIGRAMS 393040 RxNorm TAKE 10 MILLIGRAMS ORAL AT BEDTIME Melatonin 3 MG Oral Tablet 10/16/2017 Unknown BY MOUTH AT BEDTIME 3 MILLIGRAMS 952157 RxNorm TAKE 3 MILLIGRAMS BY MOUTH AT BEDTIME Furosemide 80MG Oral Tablet 03/13/2018 Unknown BY MOUTH ONCE A DAY 80 MILLIGRAMS 350568 RxNorm TAKE 80 MILLIGRAMS BY MOUTH ONCE [...] Date Status Code Code System PYELONEPHRITIS active 75728384 SNOME D-CT SUPRAVENTRICULAR TACHYCARDIA active 5109847 SNOMED-CT BED-RIDDEN active 817629842 SNOMED-CT SPRAINED RIGHT ANKLE, INITIAL ENCOUNTER active 08358794700127178 SNOME D-CT CELLULITIS OF RIGHT LEG active 464660 82924395513 SNOMED-CT Allergies and Adverse Reactions Allergy Substance Reaction Severity Start Date Concern Status Co de Code System PCN (penicillin) Hives (SNOMED-CT: 259528440) Moderate Active GLYBURIDE Moderate Active 4815 RxNorm CONTRAST MEDIA, IODINE RELATED Hives (SNOMED-CT: 880820042), SOB (SNOMED-CT: 248756649) Severe Active CIPRO Hives (SNOMED-CT: 341706032) Moderate Active 194626 RxNorm Plan of Treatment Julio Established Patient 025 Aura Established Patient 025 Aura Established Patient 026 Encounters Encounter Diagnosis Start Date Code Code Sys tem Lung field abnormal 08/16/2023 [id number] SNOMED-C T Personal Care Team Section Performer Name Performer Role Active Date Inactive TRAN Over[place] PCP - Primary care physician
--- OUTSIDE RECORDS SUMMARY | 2025-04-21 15:21 | XMS_ITS ---
Author Organization [facility] Address [address] [place] [address] Care Team Providers Care Sectionizer Name Role Phone Brock Kim MD Primary Care Provider [phone] Active Problems Patient Care Coordination No te Formatting of this note migh t be different from the original. Referring provider: Dr. Issac Pedersen Ms. Marleny Del Rio is a 72 year old with lung nodules. Patient has a history of rheumatoid arthritis. In January of 2023 the patient underwent a right partial nephrectomy for renal cell carcinoma with Dr. Pedersen at [facility]. 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 There were 2 foci of renal cell carcinoma in the tumor specimen. She still has a left-sided lesion that is being followed. Patient also has a history of pulmonary nodules. She was being followed by a security systems sales representative at [facility]. In January 2023 the patient underwent a [...] uses a wheelchair. She lives in a correction. She also has a history of a [...] 2023 Assessment & Plan (06/20/2024 6:41 PM ONLINE CONTENT DEVELOPER): Cataract Pre-Op Note HPI: Marleny Del Rio [...] phone number at which to reach patient: [phone] Planned Operation: CE/IOL of the left eye Time: 60 minutes Anesthesia: MAC Local: Topical Special equipment: Viviana terry, will likely avoid intracameral antibiotics intraop due [...] 10/02/2017 Supraventricular tachycardia 05/31/2017 Knee pain 01/07/2016 Current Treatment and Therapy Plans No current plan information found. Past Treatment and Therapy Plans No past plan information found. Lifetime Dose Tracking * Chemical Lifetime Dose Automatic Entry Manual Entr y DLP 1,453 mGycm 1,453 mGycm 0 mGycm
--- OUTSIDE RECORDS SUMMARY | 2025-04-21 15:21 | XMS_ITS | Encounter Summary ---
Author Organization [facility] Address Formerly [facility] [place] [address] Care Team Providers Care Cigarette Roller Name Role Phone Marshall Cuevas MD Primary Care Provider Asuncion Tanner MD Unavailable Zain Betancur MD Unavailable [phone] Claudio Mendez MD Unavailable [phone] Encounter Details Date Type Department Care Team (Late st Contact Info) Description 09/30/2018 Abstract SFL CONVERSION [address] [place] [address] , Generic Conversion, Social History Tobacco Use Types Packs/Day Years Used Date Smoking Tobacco: Never Alcohol Use Standard Drinks/Week Comments No 0 (1 standard drink = 0.6 oz pur e alcohol) AUDIT-C Answer Date Recorded Frequency of Alcohol Consumption Never 03/08/2018 Average Number of Drinks Not on file 018 Frequency of Binge Drinking Not on file 02/23 Comments Unknown Sex and Gender Information Value Date Recorded Sex Assigned at Female 11/13/2024 12:48 PM CDT Legal Sex Female 10:43 PM CDT Gender Identity Not on file Sexual Orientation Not on file documented as of this encounter Plan of Treatment Upcoming Encounters Date Type Department Care Team (Late Contact Info) Description 01/08/2026 1:20 PM CDT Appointment [facility] [address] [place] [address] Marshall Cuevas MD [address] [place] [phone] documented as of this encounter Visit Diagnoses Not on filedocumented in this encounter Additional Health Concerns Infection Onset Date Last Indicated 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 09/04/2019 09/04/2019 ESBL - Extended Spectrum Beta-lactamase 01/04/2025 1 05/15/2024 documented as of this encounter Care Teams Cigarette Roller Relationship Specialty Start Date End Date Marshall Cuevas MD [address] [place] [address] PCP - General FAMILY PRACTICE 03/01/18 Asuncion Tanner MD [address] [place] [address] Consulting Physician PLASTIC SURGERY 12/23/20 Zain Betancur MD [address] [place], [place] [address] Consulting Physician INTERVENTIONAL CARDIOLOGY 01/22/21 06/29/24 Claudio Mendez MD [address] [facility] [address] [place] [address] Physician INTERVENTIONAL CARDIOLOGY 06/29/24 documented as of this encounter
--- OUTSIDE RECORDS SUMMARY | 2025-04-21 15:21 | XMS_ITS | Encounter Summary ---
Author Organization [facility] Address [address] [place] [address] Care Team Providers Care Barman Name Role Phone Marshall Cuevas MD Primary Care Provider [phone] Brock Kim MD Primary Care Provider [phone] Encounter Details Date Type Department Care Team (Late st Contact Info) Description 02/10/[address] [phone] Magdiel Ocasio RN Social History Tobacco Use Types Packs/Day Years Used Date Smoking Tobacco: Never Passive Smoke Exposure: Never Smokeless Tobacco: Never AUDIT-C Answer Date Recorded Q1: How often do you have a drink containing alc ohol? Monthly or less 02/07/2023 Q2: How many drinks containi ng alcohol do you have on a typical day when you are drinking? 1 or 2 02/07/2023 Q3: How often do you have si x or more drinks on one occasion? Never 02/07/2023 Personal Safety Answer Date Recorded Have you ever been in or are you currently in a harmful physical or emotional relationship or is someone making you feel afraid or unsafe? Denies 02/08/2023 Comments No Sex and Gender Information Value Date Recorded Sex Assigned at Not on file Legal Sex Female 10:05 PM DATA LEAD Gender Identity Not on file Sexual Orientation Straight 10/19/2024 1: 02 PM CDT documented as of this encounter Plan of Treatment Not on file documented as of this encounter Visit Diagnoses Not on filedocumented in this encounter Care Teams Barman Relationship Specialty Start Date End Date Marshall Cuevas MD PCP - General Family Medicine 11/16/22 04/14/25 Brock iKm MD [address] [address] PCP - General Pulmonary Disease 04/15/25 documented as of this encounter
--- OUTSIDE RECORDS SUMMARY | 2025-04-21 15:22 | XMS_ITS ---
Author Organization Unknown Address [address] [place] [phone] Phone Care Team Providers Care [place] Technician Name Role Phone JUSTINO MALDONADO Attending Unavailable JIHAN MAYFIELD Primary Unavailable Immunization Immunization Date Status Additional [...] em Smoking History Never smoker (Never Smoked) [id number] SNOMED CT Sex Female Gender Identity Female [id number] Medications Medication Start Date End Date Route Frequency Dose Code Code System Medication Instructions Home Meds dilTIAZem HCl 180MG Oral Capsule, Extended Release, 24 HR 06/03/2017 Unknown ORAL ONCE A DAY 180 MILLIGRAMS 618581 RxNorm TAKE 180 MILLIGRAMS ORAL ONCE A DAY Aspirin 81MG Oral Tablet, Enteric Coated 06/03/2017 Unknown ORAL ONCE A DAY 162 MILLIGRAMS 238495 RxNorm TAKE 162 MILLIGRAMS ORAL ONCE A DAY Gabapentin 300MG Oral Capsule 06/03/2017 Unknown ORAL THREE TIMES A DAY 300 MILLIGRAMS 964580 RxNorm TAKE 300 MILLIGRAMS ORAL THREE TIMES A DAY Levemir FlexPen 100U/1ML Subcutaneous Solution 06/03/2017 Unknown SUBCUTA NEOUS AT BEDTIME 33 UNITS 173011 RxNorm INJECT INTO 33 UNITS SUBCUTANEOUS AT BEDTIME Magnesium Oxide 400MG Oral Tablet 06/03/2017 Unknown ORAL ONCE A DAY 400 MILLIGRAMS 187956 RxNorm TAKE 400 MILLIGRAMS ORAL ONCE A DAY Montelukast Sodium 10MG Oral Tablet 06/03/2017 Unknown ORAL AT BEDTIME 10 MILLIGRAMS 544128 RxNorm TAKE 10 MILLIGRAMS ORAL AT BEDTIME Polyethylene Glycol 17GM/1Dose Oral Powder for Solution 06/03/2017 Unknown ORAL NEEDED DAILY 17 GRAMS RxNorm TAKE 17 GRAMS ORAL NEEDED DAILY Potassium Chloride 10MEQ Oral Tablet, Extended Release 06/03/2017 Unknown ORAL TWICE A DAY 20 MEQ 865863 RxNorm TAKE 20 MEQ ORAL TWICE A DAY Spironolacto ne 25MG Oral Tablet 06/03/2017 Unknown ORAL TWICE A DAY 25 MILLIGRAMS 476088 RxNorm TAKE 25 MILLIGRAMS ORAL TWICE A DAY Vitamin D3 2000 IU Oral Capsule, Liquid Filled 06/03/2017 Unknown ORAL ONCE A DAY 2000 UNITS 260826 RxNorm TAKE 2000 UNITS ORAL ONCE A DAY metFORMIN HCl 1000MG Oral Tablet 06/03/2017 Unknown ORAL TWICE A DAY WITH MEALS 1000 MILLIGRAMS 892842 RxNorm TAKE 1000 MILLIGRAMS ORAL TWICE A DAY WITH MEALS Nystatin 811816Q/1GM Topical application Cream 10/16/2017 Unknown TOPICAL EVERY 12 HOURS 1 APPLICATION 037620 RxNorm APPLY TO AFFECTED AREA TOPICAL EVERY 12 HOURS Pantoprazole Sodium 40MG Oral Tablet, Enteric Coated 10/16/2017 Unknown BY MOUTH ONCE A DAY 40 MILLIGRAMS 004825 RxNorm TAKE 40 MILLIGRAMS BY MOUTH ONCE A DAY Florastor 250 MG Oral Capsule 10/16/2017 Unknown BY MOUTH TWICE A DAY 250 MILLIGRAMS RxNorm TAKE 250 MILLIGRAMS BY MOUTH TWICE A DAY Abilify 20MG Oral Tablet 10/16/2017 Unknown ORAL ONCE A DAY 20 MILLIGRAMS 630401 RxNorm TAKE 20 MILLIGRAMS ORAL ONCE A DAY Acetaminophe n 325MG Oral Tablet 10/16/2017 Unknown ORAL NEEDED EVERY 6 HOURS 650 MILLIGRAMS 029064 RxNorm TAKE 650 MILLIGRAMS ORAL NEEDED EVERY 6 HOURS Albuterol Sulfate 0.083% Inhalation Solution 10/16/2017 Unknown INHALAT ION NEEDED 4 TIMES A DAY 1 VIAL 713620 RxNorm 1 VIAL INHALATION NEEDED 4 TIMES A DAY Breo Ellipta 200MCG-25MCG /1Act Inhalation Powder 10/16/2017 Unknown INHALAT ION ONCE A DAY 1 PUFF 5290354 RxNorm 1 PUFF INHALATION ONCE A DAY Docusate 100MG Oral Capsule, Liquid Filled 10/16/2017 Unknown ORAL AT BEDTIME 200 MILLIGRAMS 0665342 RxNorm TAKE 200 MILLIGRAMS ORAL AT BEDTIME Vitamin D 76947DS Oral Capsule 10/16/2017 Unknown ORAL ONCE A WEEK 37037 UNITS 1917583 RxNorm TAKE 78536 UNITS ORAL ONCE A WEEK Zetia 10MG Oral Tablet 10/16/2017 Unknown ORAL AT BEDTIME 10 MILLIGRAMS 540992 RxNorm TAKE 10 MILLIGRAMS ORAL AT BEDTIME Melatonin 3 MG Oral Tablet 10/16/2017 Unknown BY MOUTH AT BEDTIME 3 MILLIGRAMS 256233 RxNorm TAKE 3 MILLIGRAMS BY MOUTH AT BEDTIME Furosemide 80MG Oral Tablet 03/13/2018 Unknown BY MOUTH ONCE A DAY 80 MILLIGRAMS 684507 RxNorm TAKE 80 MILLIGRAMS BY MOUTH ONCE [...] Date Status Code Code System PYELONEPHRITIS active 86441893 SNOME D-CT SUPRAVENTRICULAR TACHYCARDIA active 1764923 SNOMED-CT BED-RIDDEN active 377813764 SNOMED-CT SPRAINED RIGHT ANKLE, INITIAL ENCOUNTER active [id number] SNOME D-CT CELLULITIS OF RIGHT LEG active 574779 [id number] SNOMED-CT Allergies and Adverse Reactions Allergy Substance Reaction Severity Start Date Concern Status Co de Code System PCN (penicillin) Hives (SNOMED-CT: 518567081) Moderate Active GLYBURIDE Moderate Active 4815 RxNorm CONTRAST MEDIA, IODINE RELATED Hives (SNOMED-CT: 512883177), SOB (SNOMED-CT: 317720963) Severe Active CIPRO Hives (SNOMED-CT: 158203901) Moderate Active 621613 RxNorm Plan of Treatment Justino Established Patient 025 Justino Established Patient 025 Justino Established Patient 026 Personal Care Team Section Performer Name Performer Role Active Date Inactive TRAN [place] PCP - Primary care physician
--- OUTSIDE RECORDS SUMMARY | 2025-04-21 15:22 | XMS_ITS | Clinical Summary ---
Author Organization [facility] Address [address] [place] [address] Care Team Providers Care Nail Specialist Name Role Phone Marshall Cuevas MD Primary Care Provider [phone] Asuncion Tanner MD Unavailable Claudio Mendez MD Unavailable [phone] Allergies Active Allergy Reactions Criticality Noted Date Comments Ciprofloxacin Other (see comment) Low 08/26/2014 Unable to assess Other reaction(s): Other (see comment) Unable to assess Unable to assess Other reaction(s): Other (see comment) Unable to assess Clindamycin GI Upset 08/28/2019 Other reaction(s): GI Upset Fentanyl Unknown,Rash Medium 06/19/2021 Other reaction(s): Unknown Iodine Unknown 06/19/2021 Other reaction(s): Unknown Other reaction(s): kidneys shut down Penicillins Other (see comment) Low 08/26/2014 Unable to assess Other reaction(s): Other (see comment) Unable to assess Unable to assess Other reaction(s): Other (see comment) Unable to assess Prednisone Unknown 01/11/2025 Medications * This document contains information received from the source organization and may not represent a complete record from that organization. atorvastatin 40 MG tablet Take 1 tablet (40 mg total) by mouth nightly at bedtime. 3 Active aspirin 81 MG tablet Take 1 tablet (81 mg total) by mouth daily. 1 Active loratadine 10 MG tablet Take 1 tablet (10 mg total) by mouth daily. Active magnesium oxide 400 (241.3 Mg) MG tablet Take 1 tablet (400 mg total) by mouth 2 (two) times daily. Active polyethylene glycol packet Take 240 mLs (17 g total) by mouth daily as needed (Constipation). Dissolve powder in 240 mL water Active pantoprazole EC 40 MG tablet Take 1 tablet (40 mg total) by mouth daily. Active vitamin D3, cholecalciferol , 1000 UNIT Tab tablet Take 1 tablet (1,000 Units total) by mouth daily. Active acetaminophen 500 MG tablet Take 2 tablets (1,000 mg total) by mouth every 8 (eight) hours as needed for Pain. Active torsemide 20 MG tablet Take 4 tablets (80 mg total) by mouth 2 (two) times daily. 1 Active Albuterol Sulfate, sensor, 108 (90 Base) MCG/ACT AEROSOL POWDER, BREATH ACTIVATED Inhale 2 puffs into the lungs every 8 (eight) hours. And every 4 hrs prn Active fluocinonide (LIDEX) 0.05 % external solution Apply topically daily. Apply to scalp 3 Active Lidocaine (TOPICAINE) 4 % Gel Apply 1 Application. topically every 8 (eight) hours as needed (pain). Active Cranberry 400 MG Cap Take 5 capsules by mouth daily. Active citalopram (CELEXA) 10 MG tablet Take 1 tablet (10 mg total) by mouth 6 (six) times a week. Awp-Tdah-Qrx-Tue rs-Fri-Sat Active bisacodyl (DULCOLAX) [address] 1 suppository (10 mg total) rectally every third day as needed for Constipation. Active Fluticasone-Ume clidin-Vilant (TRELEGY ELLIPTA) 100-62.5-25 MCG/ACT AEROSOL POWDER, BREATH ACTIVATED Inhale 1 puff into the lungs daily. Active docusate sodium (COLACE) 100 MG capsule Take 4 capsules (400 mg total) by mouth nightly at bedtime. Active ferrous gluconate (FERGON) 324 (37.5 Fe) MG tablet Take 1 tablet (324 mg total) by mouth 3 (three) times daily with meals. Active saccharomyces boulardii (FLORASTOR) 250 MG capsule Take 1 capsule (250 mg total) by mouth 2 (two) times daily. Active nystatin (MYCOSTATIN) powder Apply topically nightly. And every 8hrs prn. To axilla and folds 4 Active POTASSIUM CHLORIDE OR Take 80 mEq by mouth 2 (two) times daily. Active chlorhexidine (TRICIA-HEX 4) 4 % Solution Apply topically every other day. On even days at HS 5 Active EPOETIN NNAMDI IJ Acti ve albuterol (ACCUNEB) 1.25 MG/3ML nebulizer solution Take 3 mLs (1.25 mg total) by nebulization every 6 (six) hours as needed for Shortness of breath or Wheezing. Active insulin glargine (LANTUS) 100 UNIT/ML injection (VIAL) Inject 55 Units into the skin nightly at bedtime. Active benzoyl peroxide 10 % Gel gel Apply topically nightly at bedtime. On odd days at bedtime 5 Active citalopram (CELEXA) 10 MG tablet Take 0.5 tablets (5 mg total) by mouth once a week. On Sundays 5 Active clindamycin (CLEOCIN T) 1 % gel Apply topically 2 (two) times daily. Every evening and weight shifter Active clobetasol (TEMOVATE) 0.05 % external solution Apply topically daily. Apply to scalp daily Active saline enema adult (FLEET) 7-19 GM/118ML Enema enema Place 133 mLs (1 enema total) rectally every third day as needed for Constipation. Active gabapentin (NEURONTIN) 600 MG tablet Take 1 tablet (600 mg total) by mouth 2 (two) times daily. Active glucagon 1 MG injection Inject 1 mg into the muscle once as needed. Every 10 minutes for blood sugar below 70 and unresponsive, May give 2 doses 10 minutes apart. If resident is still unresponsive call MD or 911 Active hypromellose (ISOPTO TEARS) 0.5 % ophthalmic solution Place 1 drop into the left eye as needed (dry eyes). Active roflumilast (DALIRESP) 500 MCG Tab Take 1 tablet (0.5 mg total) by mouth daily. Active benzonatate (TESSALON) 100 MG capsule Take 1 capsule (100 mg total) by mouth 3 (three) times daily as needed for Cough. Active calcium carbonate (TUMS) 500 MG chewable tablet Chew 2 tablets (1,000 mg total) by mouth every 6 (six) hours as needed for Heartburn. Active vitamin C (ASCORBIC ACID) 500 MG tablet Take 3 tablets (1,500 mg total) by mouth daily. Active insulin aspart (NOVOLOG) 100 UNIT/ML injection (VIAL) Inject 20 Units into the skin 3 (three) times daily before meals. Active methocarbamol (ROBAXIN) 750 MG Tab Take 0.5 tablets (375 mg total) by mouth 3 (three) times daily as needed (for muscle spasms). Active ondansetron (ZOFRAN) 4 MG tablet Take 1 tablet (4 mg total) by mouth every 6 (six) hours as needed for Nausea. Active zinc gluconate 50 MG Tab Take 1 tablet (50 mg total) by mouth daily. Active Active Problems Problem Noted Date Diagnosed Date Sepsis 12/08/2024 Renal cell carcinoma of right kidney 08/03/2023 Pulmonary nodule 08/03/2023 Rotator cuff arthropathy of right shoulder 04/28 Chronic nonintractable headache, unspecified hea dache type 06/25/2021 Polyneuropathy associated with underlying diseas e 06/25/2021 Anemia 06/30/2019 Right lower lobe pneumonia 06/29/2019 COPD (chronic obstructive pulmonary disease) 09/2019 Diabetes 06/29/2019 Paroxysmal SVT (supraventricular tachycardia) Chronic renal insufficiency, stage 4 (severe) Resolved Problems Problem Noted Date Diagnosed Date Resolved Date SVT (supraventricular tachycardia) 06/30/2019 07/04/2019 Encounters Date Type Department Care Team Description 04/03/2025 10:43 AM [facility] - 04/03/2025 11:59 PM [facility] Hospital Encounter [facility] [address] [place] [address] Stewart Bobo MD Discharge Disposition: Home or Self Care (Routine Discharge) 04/03/2025 Travel 03/15/2025 6:05 PM OPTHALMIC TECH - 03/15/2025 11:59 PM [facility] Hospital Encounter [facility] [address] [place] [address] Issac Pedersen MD Discharge Disposition: Home or Self Care (Routine Discharge) 01/29/2025 9:48 PM CDT - 01/30/2025 2:17 AM CDT Emergency [facility] [address] [place] [id number] Psychiatric Problem Discharge Disposition: Shelter Care 01/29/2025 Travel from Last 3 Months Family History Medical History Relation Comments No Known Problems Brother No Known Problems Father No Known Problems Maternal Aunt No Known Problems Maternal Grandfather No Known Problems Maternal Grandmother No Known Problems Maternal Uncle Hyperlipidemia Mother Hypertension Mother No Known Problems Paternal Aunt No Known Problems Paternal Grandfather No Known Problems Paternal Grandmother No Known Problems Paternal Uncle No Known Problems Sister Relation Status Comments Brother Father Maternal Aunt Maternal Grandfather Maternal Grandmother Maternal Uncle Mother Paternal Aunt Paternal Grandfather Paternal Grandmother Paternal Uncle Sister Social History Tobacco Use Types Packs/Day Years Used Date Smoking Tobacco: Never Smokeless Tobacco: Never Tobacco Cessation:Counseling Given: Not Answered Comments:patient doesnt smoke Alcohol Use Standard Drinks/Week Comments No 0 (1 standard drink = 0.6 oz pur e alcohol) [facility] Utilities Answer Date Recorded In the past 12 months has health system [employer], gas, oil, or water [employer] threatened to shut off services in your home? No 12/08/2024 Humiliation, Afraid, Rape, and Kick questionnair e Answer Date Recorded Within the last year, have y ou been afraid of your partner or ex-partner? No 12/08/2024 Within the last year, have y ou been humiliated or emotionally abused in other ways by your partner or ex-partner? No Within the last year, have y ou been kicked, hit, slapped, or otherwise physically hurt by your partner or ex-partner? No 12/08/2024 Within the last year, have y ou been raped or forced to have any kind of sexual activity by your partner or ex-partner? No 12/08/2024 Social Connection and Isolation Panel Answer Date Recorded Frequency of Communication with Friends and Fami ly Never 06/29/2019 Frequency of Social Gatherings with Friends and Family Never 06/29/2019 Attends Judaism Services Never 06/28 Active Member of Clubs or Organizations No 06/29/2019 Attends Club or Organization Meetings Not asked 06/29/2019 Marital Status Not asked 06/29/2019 AUDIT-C Answer Date Recorded Frequency of Alcohol Consumption Never 03/08/2018 Average Number of Drinks Not on file 018 Frequency of Binge Drinking Not on file 02/23 Overall Financial Resource Strain (CARDIA) Answe r Date Recorded How hard is it for you to pa y for the very basics like food, housing, medical care, and heating? Not hard at all 12/08/2024 PHQ-2 Answer Date Recorded PHQ-2 Score - If the patient scores above 3, please move on to questions 3-9 0 06/22/2021 [facility] - Occupational Stress Questionnaire Answer Date Recorded Feeling of Stress Not at all 06/29/2019 Exercise Vital Sign Answer Date Recorde d Days of Exercise per Week 0 days 2019 Minutes of Exercise per Session 0 min 06/29/2019 Hunger Vital Sign Answer Date Recorded Within the past 12 months, y ou worried that your food would run out before you got the money to buy more. Never true 12/09/19 25 Within the past 12 months, t he food you bought just didn't last and you didn't have money to get more. Never true 12/08/2024 PRAPARE - Transportation Answer Date Re corded In the past 12 months, has l ack of transportation kept you from medical appointments or from getting medications? No 11/23 In the past 12 months, has l ack of transportation kept you from meetings, work, or from getting things needed for daily living? No 12/08/2024 Housing Stability Vital Sign Answer Ham e Recorded In the last 12 months, was t here a time when you were not able to pay the mortgage or rent on time? No 12/08/2024 In the past 12 months, how m any times have you moved where you were living? 1 12/08/2024 At any time in the past 12 m [facility], were you homeless or living in a skilled nursing (including now)? No 12/08/2024 Comments No Sex and Gender Information Value Date Recorded Sex Assigned at Female 11/13/2024 12:48 PM CDT Legal Sex Female 10:43 PM CDT Gender Identity Not on file Sexual Orientation Not on file Last Filed Vital Signs Vital Sign Reading Time Taken Comments Blood Pressure 140/61 01/29/2025 10:03 PM CDT Pulse 87 01/29/2025 10:03 PM CDT Temperature 36.3 C (97.4 F) 01/29/2025 10:03 PM CDT Respiratory Rate 16 01/29/2025 10:03 PM CDT Oxygen Saturation 95% 01/29/2025 10:03 PM CDT Inhaled Oxygen Concentration - - Weight 104.3 kg (230 lb) 01/29/2025 10:03 PM CDT Height 170.2 cm (5' 7) 01/29/2025 10:03 PM CDT Body Mass Index 36.02 01/29/2025 10:03 PM CDT Plan of Treatment Upcoming Encounters Date Type Department Care Team (Late st Contact Info) Description 01/08/2026 1:20 PM CDT Appointment [facility] [place] [facility] - [facility] [address] [place] [id number] Marshall Cuevas MD [address] [place] [phone] Health Maintenance Due Date Last Done Comments Colorectal Cancer Screening Colonoscopy (10 Years) 1950 Kidney Health Evaluation 1950 Diabetes: Retinopathy Eye Exam 10/19/1967 Hepatitis C 10/19/1967 DTaP, Tdap and Td Vaccines (1 - Tdap) 1968 Zoster Vaccines (1 of 2) 10/19/1999 Annual Medicare Wellness Visit 2014 Hemoglobin A1C 08/09/2023 02/07/2023, 0411/2022, 07/01/2019 Lipid Panel 08/11/2023 08/10/2022, 07/01/2019 RSV Immunization or 60+ Years (1 - 1-dose 75+ series) 2024 COVID-19 Vaccine (2024- season) 2024 04/11/2024, 03/30/2022, 11/11/2021, Additional history exists Influenza Adult (#1) 2025 01/23/2023, 03/12/2018, 02/06/2018, Additional history exists Pneumococcal Vaccine: 50+ Years Completed 03/13/2018, 02/09/2017, 01/23/2017 Dexa Scan (General) Completed 12/06/2024 Hepatitis A Vaccines Aged Out No long er eligible based on patient's age to complete this topic Meningococcal B Vaccine Aged Out No l onger eligible based on patient's age to complete this topic Meningococcal Vaccine Aged Out No nikki rosalee eligible based on patient's age to complete this topic RSV Immunizations Under 20 Months Aged Out No longer eligible based on patient's age to complete this topic Procedures Procedure Name Priority Date/Time Associated Diagnosis Comments MRI PEL WWO CON Routine 04/03/2025 12:39 PM OPTHALMIC TECH Left lower quadrant abdominal mass URINE BACTERIA CULTURE Routine 03/15/2025 6:07 PM OPTHALMIC TECH URINALYSIS Routine 03/15/2025 3:[address] HEAD WO CON STAT 01/29/2025 10:51 PM CDT HC DRUG SCREEN PRESUMPTIVE INSTRUMENT T1 STAT 01/29/2025 10:09 PM CDT HC DRUG SCREEN PRESUMPTIVE INSTRUMENT T2 STAT 01/29/2025 10:09 PM CDT HC DRUG SCREEN PRESUMPTIVE INSTRUMENT T3 STAT 01/29/2025 10:09 PM CDT HC MAGNESIUM STAT 01/29/2025 10:09 PM CDT HC COMPREHENSIVE METABOL PANEL STAT 01/29/2025 10:09 PM CDT HC CBC AUTO W/AUTO DIFF STAT 01/29/2025 10:09 PM CDT DRUG SCREEN RAPID STAT 01/29/2025 10: 01 PM CDT HC URINALYSIS AUTO W/MICRO STAT 01/29/2025 10:01 PM CDT BONE DENSITY/DEXA Routine 12/06/2024 10: 03 AM CDT Postmenopausal osteoporosis LIPID PANEL Routine 07/01/2019 4:55 AM CDT HEMOGLOBIN, GLYCOSYLATED Routine 07/01/2019 4:55 AM CDT COLONOSCOPY Routine OPTHALMIC TECH from Last 3 Months or Most Recently Relevant to Health Maintenance Results * MRI PEL WWO CON (04/03/2025 12:39 PM OPTHALMIC TECH) Anatomical Region Laterality Modality Pelvis Magnetic Resonan ce 04/15/2025 11:0 9 AM OPTHALMIC TECH Impressions 04/15/2025 11:22 AM OPTHALMIC TECH IMPRESSION: 1. No distinct mass lesion or abnormal signal/enhancement is identified underlying the external marker. There is notable laxity of the left lateral abdominal wall in this region, which results in protrusion of intra-abdominal fat and bowel to the lateral abdomen. This could be perceived as an underlying mass. 2. Multiple uterine fibroids. 3. Mildly enlarged right external iliac chain lymph node, nonspecific. 4. Partially visualized cysts involving the lower pole the left kidney, incompletely evaluated. Could further correlate with renal ultrasound. Referred By: STEWART BOBO Interpreted By: Azael Paz MD, 04/15/2025 11:09 AM Narrative 04/15/2025 11:22 AM OPTHALMIC TECH [address] [place] [address] Examination: MRI PEL WWO CON Exam time: 04/03/2025 11:15 AM Clinical history: Left lower quadrant mass. Comparison: CT 01/11/2025 and 12/08/2024. Technique: Multiplanar, multisequence MR images of the pelvis were obtained before and after administration of 20 mL of Dotarem without adverse event. Findings: Large patient body habitus and motion degraded image quality and limits the sensitivity of this exam. External marker was placed by the performing medicine technologist overlying the region of concern. There is no distinct mass lesion or abnormal signal/enhancement underlying the external marker. There is notable laxity of the left lateral abdominal wall in this region, which results in protrusion of intra-abdominal fat and bowel to the lateral abdomen. This could be perceived as an underlying mass. Uterus demonstrates multiple uterine fibroids, the largest seen involving the right fundus and body measuring up to 3.6 cm. The endometrium measures approximately 4.5 mm in diameter on the single provided sagittal sequence (series 11 image 38). The ovaries are not well assessed. The urinary bladder appears unremarkable. Mildly enlarged right external iliac chain lymph node measuring 1.5 cm short axis (series 4 image 10), nonspecific. No free fluid is seen within the pelvis. Partially visualized cysts involving the lower pole the left kidney, incompletely evaluated. No abnormal marrow signal is noted. Procedure Note Azael Paz MD - 04/15/[address] [place] [address] Examination: MRI PEL WWO CON Exam time: 04/03/2025 11:15 AM Clinical history: Left lower quadrant mass. Comparison: CT 01/11/2025 and 12/08/2024. Technique: Multiplanar, multisequence MR images of the pelvis wereobtained before and after administration of 20 mL of Dotarem withoutadverse event. Findings: Large patient body habitus and motion degraded image quality and limitsthe sensitivity of this exam. External marker was placed by the performing medicine technologist overlyingthe region of concern. There is no distinct mass lesion or abnormalsignal/enhancement underlying the external marker. There is notable laxityof the left lateral abdominal wall in this region, which results inprotrusion of intra-abdominal fat and bowel to the lateral abdomen. Thiscould be perceived as an underlying mass. Uterus demonstrates multiple uterine fibroids, the largest seen involvingthe right fundus and body measuring up to 3.6 cm. The endometrium measuresapproximately 4.5 mm in diameter on the single provided sagittal sequence(series 11 image 38). The ovaries are not well assessed. The urinarybladder appears unremarkable. Mildly enlarged right external iliac chainlymph node measuring 1.5 cm short axis (series 4 image 10), nonspecific.No free fluid is seen within the pelvis. Partially visualized cysts involving the lower pole the left kidney,incompletely evaluated. No abnormal marrow signal is noted. IMPRESSION: 1. No distinct mass lesion or abnormal signal/enhancement is identifiedunderlying the external marker. There is notable laxity of the leftlateral abdominal wall in this region, which results in protrusion ofintra-abdominal fat and bowel to the lateral abdomen. This could beperceived as an underlying mass. 2. Multiple uterine fibroids. 3. Mildly enlarged right external iliac chain lymph node, nonspecific. 4. Partially visualized cysts involving the lower pole the left kidney,incompletely evaluated. Could further correlate with renal ultrasound. Referred By: STEWART BOBO Interpreted By: Azael Paz MD, 04/15/2025 11:09 AM Stewart Bobo MD MRI Final Result * (ABNORMAL) CULTURE, URINE (03/15/2025 6:07 PM OPTHALMIC TECH) SPEC DESCRIPTION URINE, UNSPECIFIED 03/16/2025 6:07 PM OPTHALMIC TECH [facility] SPECIAL REQUESTS NO SPECIAL REQUEST 03/16/2025 6:07 PM OPTHALMIC TECH [facility] CULTURE RESULT EQUAL OR >100,000 CFU/mL ESCHERICHIA COLI, EXTENDED SPECTRUM BETA LACTAMASE TOP EXECUTIVE (A) 03/20/2025 9:09 AM OPTHALMIC TECH [facility] URINE URINE SPECIMEN / Unknown 03/15/2025 6:07 PM OPTHALMIC TECH 03/16/2025 6:16 PM OPTHALMIC TECH Narrative Organism Antibiotic Method Susceptibility Escherichia coli, extended spectrum beta lactamase audit practice intern FOSFOMYCIN ROMIE (KB) Sensitive Escherichia coli, extended spectrum beta lactamase audit practice intern AMPICILLIN ROMIE (VITEK) Resistant Escherichia coli, extended spectrum beta lactamase audit practice intern AMOXICILLIN/CLAVULANIC A ROMIE (VITEK) Sensitive Escherichia coli, extended spectrum beta lactamase audit practice intern AZTREONAM ROMIE (VITEK) Resistant Escherichia coli, extended spectrum beta lactamase audit practice intern CEFEPIME ROMIE (VITEK) Resistant Escherichia coli, extended spectrum beta lactamase audit practice intern CEFTRIAXONE ROMIE (VITEK) Resistant Escherichia coli, extended spectrum beta lactamase audit practice intern CEFAZOLIN ROMIE (VITEK) Resistant Escherichia coli, extended spectrum beta lactamase audit practice intern CIPROFLOXACIN ROMIE (VITEK) Sensitive Escherichia coli, extended spectrum beta lactamase audit practice intern ESBL ROMIE (VITEK) POS: Resistant Escherichia coli, extended spectrum beta lactamase audit practice intern ERTAPENEM ROMIE (VITEK) Sensitive Escherichia coli, extended spectrum beta lactamase audit practice intern NITROFURANTOIN ROMIE (VITEK) Sensitive Escherichia coli, extended spectrum beta lactamase audit practice intern GENTAMICIN ROMIE (VITEK) Resistant Escherichia coli, extended spectrum beta lactamase audit practice intern IMIPENEM ROMIE (VITEK) Sensitive Escherichia coli, extended spectrum beta lactamase audit practice intern LEVOFLOXACIN ROMIE (VITEK) INTERMEDIATE: Intermediate Escherichia coli, extended spectrum beta lactamase audit practice intern MEROPENEM ROMIE (VITEK) Sensitive Escherichia coli, extended spectrum beta lactamase audit practice intern PIPERACILLIN/TAZOBACTAM ROMIE (VITEK) Sensitive Escherichia coli, extended spectrum beta lactamase audit practice intern TRIMETH-SULFAMETH. ROMIE (VITEK) Resistant Escherichia coli, extended spectrum beta lactamase audit practice intern TETRACYCLINE ROMIE (VITEK) Sensitive us Issac Pedersen MD MICROBIOLOGY - GENERAL ORD ERABLES Final Result [facility] [address] [place] [address], [id number] * (ABNORMAL) URINALYSIS (03/15/2025 3:48 PM OPTHALMIC TECH) COLOR (U) LIGHT ORANGE 03/16/2025 6:25 PM OPTHALMIC TECH [facility] TRANSPARENCY CLOUDY 03/16/2025 6:25 PM OPTHALMIC TECH [facility] SPECIFIC GRAVITY (U) 1.011 1.002 - 1.035 03/16/2025 6:25 PM OPTHALMIC TECH [facility] U PH 6.5 5 - 8 03/16/2025 6:25 PM OPTHALMIC TECH [facility] PROTEIN RANDOM (U) 30(A) NEGATIVE 03/16/2025 6:25 PM OPTHALMIC TECH [facility] GLUCOSE (U) NEGATIVE NEGATIVE MG/DL 03/16/2025 6:25 PM OPTHALMIC TECH [facility] KETONES MG/DL (U) NEGATIVE NEGATIVE 03/16/2025 6:25 PM OPTHALMIC TECH [facility] BILIRUBIN (U) NEGATIVE NEGATIVE 03/16/2025 6:25 PM OPTHALMIC TECH [facility] BLOOD (U) TRACE(A) NEGATIVE 03/16/2025 6:25 PM OPTHALMIC TECH [facility] NITRITES NEGATIVE NEGATIVE 03/16/2025 6:25 PM OPTHALMIC TECH [facility] UROBILINOGEN NORMAL 0 - 1 EU/DL 03/16/2025 6:25 PM OPTHALMIC TECH [facility] LEUKOCYTES (U) 3+(A) NEGATIVE 03/16/2025 6:25 PM OPTHALMIC TECH [facility] RBC/HPF 23(H) 0 - 3 /HPF 03/16/2025 6:25 PM OPTHALMIC TECH [facility] WBC/HPF >182(H) 0 - 6 /HPF 03/16/2025 6:25 PM OPTHALMIC TECH [facility] Comment:PLEASE CALL THE LAB WITHIN 2 HOURS IF ACTUAL NUMBER OF CELLS IS REQUIRED. BACTERIA (U) PRESENT /HPF 03/16/2025 6:25 PM OPTHALMIC TECH [facility] SQUAMOUS EPITHELIALS 2 03/16/2025 6:25 PM OPTHALMIC TECH [facility] WBC CLUMPS PRESENT 03/16/2025 6:25 PM OPTHALMIC TECH [facility] URINE URINE SPECIMEN / Unknown 03/15/2025 3:48 PM OPTHALMIC TECH Issac Pedersen MD URINE ORDERABLES Final Res ult [facility] [address] [place] [address], [id number] * CT HEAD WO CON (01/29/2025 10:51 PM CDT) Anatomical Region Laterality Modality Head Computed Tomogra phy 01/29/2025 11:1 2 PM CDT Impressions 01/29/2025 11:16 PM CDT IMPRESSION: 1. No CT evidence of an acute intracranial abnormality. 2. Nonspecific nodules within the right parotid lobe, possible neoplasm. Nonemergent parotid ultrasound could be beneficial for further characterization. Referred By: Interpreted By: Rogelio Acosta MD, 01/29/2025 11:12 PM Narrative 01/29/2025 11:[address] [place] [id number] EXAMINATION: CT HEAD WO CON, 01/29/2025 11:13 PM TECHNIQUE: Computed tomographic images of the head were obtained without intravenous contrast. Additional coronal and sagittal reformatted images were generated. A dose lowering technique was used for this procedure, which may include, but is not limited to, dose reduction technique, automated exposure control, the use of iterative reconstruction, and ALARA (As Low As Reasonably Achievable) / Image Gently techniques. HISTORY: Altered mental status COMPARISON: CT head 04/16/2021 FINDINGS: There is no acute intracranial hemorrhage. There is no extra-axial fluid collection. Preserved booker-white matter differentiation. The ventricles are normal in size. The basal cisterns appear normal. Orbital contents appear normal. Mucous retention cyst within the right maxillary sinus. Paranasal sinuses and mastoid air cells are well-aerated. No acute fracture there is a 1.1 cm nodule within the posterior aspect of the right parotid lobe, nonspecific. There is a 0.8 cm nodule along the anterior aspect of the aspect of the superficial lobe of the right parotid Procedure Note Rogelio Acosta MD - 01/29/[address] [place] [address] EXAMINATION: CT HEAD WO CON, 01/29/2025 11:13 PM TECHNIQUE: Computed tomographic images of the head were obtained withoutintravenous contrast. Additional coronal and sagittal reformatted imageswere generated. A dose lowering technique was used for this procedure,which may include, but is not limited to, dose reduction technique,automated exposure control, the use of iterative reconstruction, and ALARA(As Low As Reasonably Achievable) / Image Gently techniques. HISTORY: Altered mental status COMPARISON: CT head 04/16/2021 FINDINGS: There is no acute intracranial hemorrhage. There is noextra-axial fluid collection. Preserved booker-white matterdifferentiation. The ventricles are normal in size. The basal cisternsappear normal. Orbital contents appear normal. Mucous retention cystwithin the right maxillary sinus. Paranasal sinuses and mastoid air cellsare well-aerated. No acute fracture there is a 1.1 cm nodule within theposterior aspect of the right parotid lobe, nonspecific. There is a 0.8cm nodule along the anterior aspect of the aspect of the superficial lobeof the right parotid IMPRESSION: 1. No CT evidence of an acute intracranial abnormality. 2. Nonspecific nodules within the right parotid lobe, possible neoplasm.Nonemergent parotid ultrasound could be beneficial for furthercharacterization. Referred By: Interpreted By: Rogelio Acosta MD, 01/29/2025 11:12 PM Dru Davis DO CT Final Result * (ABNORMAL) COMPREHENSIVE METABOLIC PANEL (01/29/2025 10:09 PM CDT) SODIUM S/P/B 139 136 - 145 MMOL/L 01/29/2025 10:40 PM CDT [facility] POTASSIUM S/P/B 4.2 3.5 - 5.1 MMOL/L 01/29/2025 10:40 PM CDT [facility] CHLORIDE S/P/B 102 98 - 107 MMOL/L 01/29/2025 10:40 PM CDT [facility] CO2 30.7 21.0 - 32.0 MMOL/L 01/29/2025 10:40 PM CDT [facility] GLUCOSE 94 70 - 99 MG/DL 01/29/2025 10:40 PM CDT [facility] Comment: FASTING GLUCOSE 100 TO 125 MG/DL IS CONSISTENT WITH IMPAIRED FASTING GLUCOSE. FASTING GLUCOSE >125 MG/DL IS CONSISTENT WITH DIABETES. RANDOM GLUCOSE >200 MG/DL WITH HYPERGLYCEMIC SYMPTOMS IS CONSISTENT WITH DIABETES. PER ADA GUIDELINES BUN 37(H) 6 - 24 MG/DL 01/29/2025 10:40 PM CDT [facility] CREATININE S/P/B 1.61(H) 0.55 - 1.02 MG/DL 01/29/2025 10:40 PM CDT [facility] CALCIUM S/P/B 10.4 8.4 - 10.5 MG/DL 01/29/2025 10:40 PM CDT [facility] BILIRUBIN TOTAL S/P/B 0.4 0.2 - 1.0 MG/DL 01/29/2025 10:40 PM [facility] Comment: THIS ASSAY IS NOT RECOMMENDED FOR PATIENTS UNDERGOING TREATMENT WITH ELTROMBOPAG DUE TO THE POTENTIAL FOR FALSELY ELEVATED RESULTS. ALKALINE PHOSPHATASE S/P/B 149(H) 55 - 142 U/L 01/29/2025 10:40 PM [facility] AST 16 15 - 37 U/L 01/29/2025 10:40 PM [facility] ALT 24 14 - 59 U/L 01/29/2025 10:40 PM [facility] TOTAL PROTEIN S/P/B 8.0 6.4 - 8.2 G/DL 01/29/2025 10:40 PM [facility] ALBUMIN S/P/B 3.0(L) 3.4 - 5.0 G/DL 01/29/2025 10:40 PM [facility] ANION GAP 6.3 5.0 - 15.0 MMOL/L 01/29/2025 10:40 PM [facility] OSMOLALITY (CALC) 296 MOSM/KG 025 10:40 PM [facility] Comment:REFERENCE RANGE NOT ESTABLISHED GFR ESTIMATE 33(L) >89 ML/MIN/1. 73 M2 01/29/2025 10:40 PM [facility] GFR NOTES GFR REFERENCE S: 01/29/2025 10:40 PM [facility] Comment: THE ESTIMATED GFR IS CALCULATED USING THE 2020 CKD-EPI EQUATION. THE FOLLOWING CATEGORIES FOR GRADING RENAL FUNCTION ARE RECOMMENDED BY THE INTERNATIONAL SOCIETY OF NEPHROLOGY (KDIGO 2012 CLINICAL PRACTICE GUIDELINE). G1,NORMAL OR HIGH: >89 ml/min/1.73 m2 G2,MILDLY DECREASED: 60-89 ml/min/1.73 m2 G3A,MILDLY TO MODERATELY DECREASED: 45-59 ml/min/1.73 m2 G3B,MODERATELY TO SEVERELY DECREASED: 30-44 ml/min/1.73 m2 G4,SEVERELY DECREASED: 15-29 ml/min/1.73 m2 G5,KIDNEY FAILURE: <15 ml/min/1.73 m2 01/29/2025 10:0 9 PM CDT Dru Davis DO LABORATORY Final Result [facility] [address] [place] [address], * (ABNORMAL) CBC W/DIFF AUTOMATED (01/29/2025 10:09 PM CDT) WBC 9.31 4.00 - 10.80 x10'3/uL 01/29/2025 10:23 PM CDT [facility] RBC 3.86(L) 4.10 - 5.40 x10'6/uL 01/29/2025 10:23 PM CDT [facility] HGB 10.3(L) 12.0 - 16.0 G/DL 01/29/2025 10:23 PM CDT [facility] HCT 34.4(L) 36.0 - 47.0 % 01/29/2025 10:23 PM CDT [facility] MCV 89.1 78.0 - 100.0 FL 01/29/2025 10:23 PM CDT [facility] MCH 26.7(L) 27.0 - 31.0 PG 01/29/2025 10:23 PM CDT [facility] MCHC 29.9(L) 33.0 - 36.0 G/DL 01/29/2025 10:23 PM CDT [facility] RDW 15.6(H) 11.5 - 14.5 % 01/29/2025 10:23 PM CDT [facility] PLT 215 150 - 350 x10'3/uL 01/29/2025 10:23 PM CDT [facility] MPV 9.6 7.4 - 10.4 FL 01/29/2025 10:23 PM CDT [facility] CBC COMMENT NORMAL REFERENCE RANGE NOT ESTABLISHED FOR THE PROPORTIONAL LEUKOCYTE DIFFERENTIAL. 01/29/2025 10:23 PM CDT [facility] NEUTROPHILS % 71.4 % 01/29/2025 10:23 PM CDT [facility] LYMPHOCYTES % 17.3 % 01/29/2025 10:23 PM CDT [facility] MONOCYTES % 7.2 % 01/29/2025 10:23 PM CDT [facility] EOSINOPHILS % 3.3 % 01/29/2025 10:23 PM CDT [facility] BASOPHILS % 0.5 % 01/29/2025 10:23 PM CDT [facility] IMMATURE GRANS % 0.3 % 01/30/20 10:23 PM CDT [facility] NRBC % 0.0 % 01/29/2025 10:23 PM CDT [facility] ABS. NEUTROPHILS 6.64 1.60 - 8.30 x10'3/uL 01/29/2025 10:23 PM CDT [facility] ABS. LYMPHOCYTES 1.61 0.80 - 4.70 x10'3/uL 01/29/2025 10:23 PM CDT [facility] ABS. MONOCYTES 0.67 0.00 - 1.50 x10'3/uL 01/29/2025 10:23 PM CDT [facility] ABS. EOSINOPHILS 0.31 0.00 - 0.40 x10'3/uL 01/29/2025 10:23 PM CDT [facility] ABS. BASOPHILS 0.05 0.00 - 0.20 x10'3/uL 01/29/2025 10:23 PM CDT [facility] ABS. IMMATURE GRANULOCYTES 0.03 0.00 - 0.03 x10'3/uL 01/29/2025 10:23 PM CDT [facility] ABS. NUCLEATED RBC'S 0.00 0.00 - 0.01 x10'3/uL 01/29/2025 10:23 PM CDT [facility] 01/29/2025 10:0 9 PM CDT Dru Davis DO LABORATORY Final Result [facility] [address] [place] [id number], [place] [phone] * MAGNESIUM (01/29/2025 10:09 PM CDT) MAGNESIUM 2.1 1.8 - 2.4 MG/DL 01/29/2025 10:40 PM CDT [facility] 01/29/2025 10:0 9 PM CDT us Dru Davis DO LABORATORY Final Result [facility] [address] [place] [address], [place] [phone] * (ABNORMAL) SALICYLATE (01/29/2025 10:09 PM CDT) SALICYLATES 1.1(L) 2.8 - 20.0 MG/DL 01/29/2025 10:55 PM CDT [facility] 01/29/2025 10:0 9 PM CDT us Dru Davis DO LABORATORY Final Result Performing Organization Address City/[facility]/ZIP Co de Phone Number [facility] [address] [place] [address], [place] [phone] * ETHANOL (01/29/2025 10:09 PM CDT) ALCOHOL S/P/B <0.003 <0.003 G/DL 01/29/2025 10:55 PM CDT [facility] 01/29/2025 10:0 9 PM CDT us Dru Davis DO LABORATORY Final Result Performing Organization Address City/[facility]/ZIP Co de Phone Number [facility] [address] [place] [address], [place] [phone] * (ABNORMAL) ACETAMINOPHEN (01/29/2025 10:09 PM CDT) ACETAMINOPHEN S/P/B 0.0(L) 10.0 - 30.0 MCG/ML 01/29/2025 10:55 PM CDT [facility] 01/29/2025 10:0 9 PM CDT Dru Davis DO LABORATORY Final Result [facility] [address] [place] [address], * DRUG SCREEN RAPID (01/29/2025 10:01 PM CDT) CANNABINOIDS SCREEN (U) NEGATIVE NEGATIVE 01/29/2025 10:58 PM CDT [facility] PHENCYCLIDINE PCP (U) NEGATIVE NEGATIVE 01/29/2025 10:58 PM CDT [facility] COCAINE METABOLITES (U) NEGATIVE NEGATIVE 01/29/2025 10:58 PM CDT [facility] METHAMPHETAMINE SCREEN (U) NEGATIVE NEGATIVE 01/29/2025 10:58 PM CDT [facility] OPIATE SCREEN (U) NEGATIVE NEGATIVE 025 10:58 PM CDT [facility] AMPHETAMINE SCREEN (U) NEGATIVE NEGATIVE 01/29/2025 10:58 PM CDT [facility] BENZODIAZEPINES SCREEN (U) NEGATIVE NEGATIVE 01/29/2025 10:58 PM CDT [facility] TRICYCLIC ANTIDEPRESSANT SCREEN (U) NEGATIVE NEGATIVE 01/29/2025 10:58 PM CDT [facility] METHADONE (U) NEGATIVE NEGATIVE 01/29/2025 10:58 PM CDT [facility] BARBITURATES SCREEN (U) NEGATIVE NEGATIVE 01/29/2025 10:58 PM CDT [facility] OXYCODONE SCREEN (U) NEGATIVE NEGATIVE 01/29/2025 10:58 PM CDT [facility] URINE TOX COMMENT THIS TEST METHODOLOGY IS DESIGNED AND OFFERED A RAPID TURNAROUND, QUALITATIVE SCREENING PROCEDURE TO AID IN THE IMMEDIATE MEDICAL ASSESSMENT OF PATIENTS SUSPECTED OF SUBSTANCE ABUSE. 01/29/2025 10:24 PM CDT [facility] Comment: CLINICAL CONSIDERATION AND PROFESSIONAL JUDGMENT MUST BE APPLIED TO ANY DRUG OF ABUSE TEST RESULT, BOTH POSITIVE AND NEGATIVE. CONFIRMATORY QUANTITATIVE RESULTS ARE AVAILABLE THROUGH OUR [facility]. URINE SPECIMEN / Unknown 01/29/2025 10:01 PM CDT us Dru Davis DO URINE ORDERABLES Final Resul t [facility] [address] [place] [address], * (ABNORMAL) URINALYSIS (01/29/2025 10:01 PM CDT) COLOR (U) STRAW 01/29/2025 10:47 PM CDT [facility] TRANSPARENCY SLIGHTLY CLOUDY 01/29/2025 10:47 PM CDT [facility] SPECIFIC GRAVITY (U) 1.010 1.000 - 1.025 01/29/2025 10:47 PM CDT [facility] U PH 6.0 5.0 - 8.0 01/29/2025 10:47 PM CDT [facility] LEUKOCYTES (U) TRACE(A) NEGATIVE 01/29/2025 10:47 PM CDT [facility] NITRITES NEGATIVE NEGATIVE 01/29/2025 10:47 PM CDT [facility] PROTEIN RANDOM (U) NEGATIVE NEGATIVE 01/29/2025 10:47 PM CDT [facility] GLUCOSE (U) NEGATIVE NEGATIVE 01/29/2025 10:47 PM CDT [facility] KETONES MG/DL (U) NEGATIVE NEGATIVE 01/29/2025 10:47 PM CDT [facility] UROBILINOGEN 0.2 <1.0 EU/DL 01/29/2025 10:47 PM CDT [facility] BILIRUBIN (U) NEGATIVE NEGATIVE 01/29/2025 10:47 PM CDT [facility] BLOOD (U) NEGATIVE NEGATIVE 01/29/2025 10:47 PM CDT [facility] WBC/HPF 5-10(A) 0 - 5 /HPF 01/29/2025 10:47 PM CDT [facility] EPI/LPF OCCASIONAL /LPF 01/29/2025 10:47 PM CDT [facility] BACTERIA (U) TRACE /HPF 01/29/2025 10:47 PM CDT [facility] URINE SPECIMEN OBTAINED BY CLEAN CATCH PROCEDURE / Unknown 01/29/2025 10:01 PM CDT us Dru Davis DO URINE ORDERABLES Final Resul t [facility] [address] [place] [phone], * BONE DENSITY/DEXA (12/06/2024 10:03 AM CDT) Anatomical Region Laterality Modality Bone Bone Density 12/06/2024 10:1 2 AM CDT Impressions 12/06/2024 10:15 AM CDT Impression: 1. Within normal limits in the lumbar spine. 2. Consistent with osteoporosis in both hips. Ordered By: SHERLY MORENO Interpreted By: Cleve Pardo MD, 12/06/2024 10:12 AM Narrative 12/06/2024 10:[place] [address] Examination: DEXA Bone densitometry Clinical history: Postmenopausal. Osteoporosis screening. Comparison: None. Technique: DEXA bone mineral density evaluation was performed in the AP projection over the lumbar spine and over both hips in the AP projection utilizing standard imaging techniques. Assessment: The BMD measured at the AP spine L1-L4 is 0.966 g/cm2 with a T-score of -0.7 and a Z-score of 1.7. Bone density is up to 10% below young normal. This patient is considered normal according to the World Health Organization (WHO) criteria. Fracture risk is low. The BMD measured at the femur total left is 0.504 g/cm2 with a T-score of -3.6 and a Z-score of -1.8. This patient is considered osteoporotic according to the world health organizations (WHO) criteria. Fracture risk is high. Pharmacological treatment, if not already prescribed should be considered. If pharmacological treatment is utilized, a followup bone density is recommended in one year to monitor response to therapy. The BMD measured at the femur total right is 0.378 g/cm2 with a T-score of -4.6 and a Z-score of -2.8. This patient is considered osteoporotic according to the world health organizations (WHO) criteria. Fracture risk is high. Pharmacological treatment, if not already prescribed should be considered. If pharmacological treatment is utilized, a followup bone density is recommended in one year to monitor response to therapy. FRAX 10-year fracture risk: Major Osteoporotic Fracture: 43%. Hip Fracture: 23%. Recommendations: All patients should ensure an adequate intake of dietary calcium and vitamin D. The NOF recommend adults under the age of 50 need 1000 mg of calcium and 400-800 IU of vitamin D daily. Effective therapy for the prevention and treatment of osteoporosis include biphosphonates. Follow-up: People with diagnosed cases of osteoporosis or at high risk for fracture should have regular bone mineral density test. For patients eligible for Medicare, routine testing is allowed once every 2 years. Testing frequency can be increased to one year for patients who have rapidly progressing disease, those who are receiving or discontinuing medical therapy to restore bone mass, or have additional risk factors. Based on these results, a followup exam is recommended in 1-2 years. Procedure Note Cleve Pardo MD - 12/06/[address] [place] [address] Examination: DEXA Bone densitometry Clinical history: Postmenopausal. Osteoporosis screening. Comparison: None. Technique: DEXA bone mineral density evaluation was performed in the APprojection over the lumbar spine and over both hips in the AP projectionutilizing standard imaging techniques. Assessment: The BMD measured at the AP spine L1-L4 is 0.966 g/cm2 with a T-score of-0.7 and a Z-score of 1.7. Bone density is up to 10% below youngnormal. This patient is considered normal according to the World HealthOrganization (WHO) criteria. Fracture risk is low. The BMD measured at the femur total left is 0.504 g/cm2 with a T-score of-3.6 and a Z-score of -1.8. This patient is considered osteoporoticaccording to the world health organizations (WHO) criteria. Fracture riskis high. Pharmacological treatment, if not already prescribed should beconsidered. If pharmacological treatment is utilized, a followup bonedensity is recommended in one year to monitor response to therapy. The BMD measured at the femur total right is 0.378 g/cm2 with a T-score of-4.6 and a Z-score of -2.8. This patient is considered osteoporoticaccording to the world health organizations (WHO) criteria. Fracture riskis high. Pharmacological treatment, if not already prescribed should beconsidered. If pharmacological treatment is utilized, a followup bonedensity is recommended in one year to monitor response to therapy. FRAX 10-year fracture risk: Major Osteoporotic Fracture: 43%. Hip Fracture: 23%. Recommendations: All patients should ensure an adequate intake of dietary calcium andvitamin D. The NOF recommend adults under the age of 50 need 1000 mg ofcalcium and 400-800 IU of vitamin D daily. Effective therapy for theprevention and treatment of osteoporosis include biphosphonates. Follow-up: People with diagnosed cases of osteoporosis or at high risk for fractureshould have regular bone mineral density test. For patients eligible forMedicare, routine testing is allowed once every 2 years. Testing frequencycan be increased to one year for patients who have rapidly progressingdisease, those who are receiving or discontinuing medical therapy torestore bone mass, or have additional risk factors. Based on these results, a followup exam is recommended in 1-2 years. Impression: 1. Within normal limits in the lumbar spine. 2. Consistent with osteoporosis in both hips. Ordered By: SHERLY MORENO Interpreted By: Cleve Pardo MD, 12/06/2024 10:12 AM Sherly Moreno MOLECULAR BIOLOGIST DEXA Final Result * (ABNORMAL) HEMOGLOBIN, GLYCATED (07/01/2019 4:55 AM CDT) HGB A1C 8.3(H) <5.7 % 07/01/2019 6:24 AM CDT [facility] ESTIMATED AVG GLUCOSE 192(H) 74 - 114 MG/DL 07/01/2019 6:24 AM CDT [facility] 07/01/2019 4:55 AM CDT us Zain Philip MD LABORATORY Final Result Performing Organization Address City/[facility] Co de Phone Number [facility] [address] [place] [address], [phone] * (ABNORMAL) LIPID PANEL (07/01/2019 4:55 AM CDT) CHOLESTEROL 123 MG/DL 07/01/2019 5:49 AM CDT [facility] Comment:DESIRABLE: <200 TRIGLYCERIDES 134 MG/DL 07/01/2019 5:49 AM CDT [facility] Comment:<150 NORMAL HDL 33(L) >49 MG/DL 07/01/2019 5:49 AM CDT [facility] LDL (CALCULATED) 63 MG/DL 07/01/19 5:49 AM CDT [facility] Comment:<100 OPTIMAL VLDL CALCULATION 27 MG/DL 07/01/19 5:49 AM CDT [facility] Comment:REFERENCE RANGE NOT ESTABLISHED CHOL/HDL RATIO 3.7 07/01/2019 5:49 AM CDT [facility] Comment:REFERENCE RANGE NOT ESTABLISHED LDL/HDL 1.9 07/01/2019 5:49 AM CDT [facility] Comment:REFERENCE RANGE NOT ESTABLISHED NON HDL CHOLESTEROL 90 MG/DL 07/01/2019 5:49 AM CDT [facility] Comment:REFERENCE RANGE NOT ESTABLISHED 07/01/2019 4:55 AM CDT us Zain Philip MD LABORATORY Final Result Performing Organization Address City/[facility]/ZIP Co de Phone Number [facility] [address] [place] [phone], [phone] * Colonoscopy ( OPTHALMIC TECH) Narrative [facility] TO EPIC CONVERSION - OPTHALMIC TECH Documented hx of procedure Procedure Note Jeffrey Gill MD - 02/26/2018 Documented hx of procedure us Generic Conversion Md GILL GI PROCEDURE ORDERABLES Final Result [facility] TO EPIC CONVERSION from Last 3 Months or Most Recently Relevant to Health Maintenance Additional Health Concerns 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 09/04/2019 09/04/2019 ESBL - Extended Spectrum Beta-lactamase 01/05/20 25 03/15/2025 [facility] [address] [place] [phone] [employer] Advance Directives Documents on File Type Date Recorded Patient Resident Associate Expl anation DNR (Do Not Resuscitate) Documentation 01/14/2025 11:25 AM 05/11/2024 POLST Advance Directives and Living Will 08/31/2023 9:29 AM 05/17/2022 - ATTEMPT CARDIOPULMONARY RESUSCITATION CPR Advance Directive (Activated) 07/02/2019 12:38 PM 03/21/18-POLST FORM/ DNR Guardianship - Permanent 09/08/2012 12:00 AM PHYSICIAN CERTIFICATION STATEMENT * Full Code (Latest Code Status on File) Date Activated Date Inactivated Comments 12/08/2024 11:02 PM 12/10/2024 4:48 PM * Full Code Date Activated Date Inactivated Comments 06/30/2019 11:01 PM 07/04/2019 7:05 PM * DNR Date Activated Date Inactivated Comments 06/29/2019 3:15 AM 06/30/2019 4:32 PM * DNR Date Activated Date Inactivated Comments 01/14/2019 5:41 AM 01/14/2019 8:27 AM Care Teams Nail Specialist Relationship Specialty Start Date End Date Marshall Cuevas MD [address] [place] [phone] PCP - General FAMILY PRACTICE 03/01/18 Asuncion Tanner MD [address] [place] [address] Consulting Physician PLASTIC SURGERY 12/23/20 Claudio Mendez MD [address] [facility] [address] [place] [address] Physician INTERVENTIONAL CARDIOLOGY 06/29/24
--- OUTSIDE RECORDS SUMMARY | 2025-04-21 15:22 | XMS_ITS | Data Portability ---
Author Organization [facility], [address] [facility] ([place]) Address [address] 4th [place] [address] Care Team Providers Care Payable Representative Name Role Phone JEROME MOJICA Primary Care Provider [phone] JACQUELINE JEONG Historic Site Administrator THEODORA LEE Historic Site Administrator [phone] Assessment Encounter Date Assessment Date Assessment LastModified by Organization Details LastModified Time 09/10/2024 09/10/2024 Patient comes ba ck today in follow-up regarding her right posterior shoulder cystic mass. The inflammation is better. We have a call into her regular doctor regarding antibiotics because of her kidney disease. The patient is prescibed anticoagulants alf. Pros and cons regarding continuing, slowing down, and/or stopping them for the procedure was discussed which include but are not limited to excess bleeding, hematoma, blood clots, embolism strokes, cardiac events. The patient understood and verbalized understanding. The patient is a diabetic. Pros and cons regarding diabeties for the procedure was discussed which include but are not limited to would healing issues, compromise, higher risk of partial or no improvement of numbness, infection, significant fluctions of blood sugars pre/intra/post op. The patient understood and verbalized understanding Examination of her skin reveals she has several lentigos and seborrheic keratoses For all the above problems unless otherwise indicated the findings and treatment options were discussed. The patient wishes to observe them which I think is appropriate. We discussed signs and symptoms which would require reevaluation. They will contact us if this occurs. They verbalized understanding of all this. Informed consent was discussed and obtained. An explanation of the procedure was provided. The potential risks of the procedure were discussed with the patient that include, but are not limited to: bleeding, infection, unacceptable or hypertrophic scarring, poor cosmetic results, contour irregularities, fluid collection, chronic pain, numbness, changes in sensation, wound healing problems, recurrence, incomplete excision, no improvement of underlying symptoms or problems, distortion of surrounding normal anatomic features, need for re-excision depending on pathology, damage to underlying vital structures such as nerves, blood vessels, muscles, and the glands, and reactions to local anesthetic medications and dressings. The benefits of the procedure, the risks and benefits of alternative procedures, as well as the possible consequences of not undergoing the procedure, were discussed. The patient verbalized understanding and gives consent to proceed. The right posterior shoulder area was sterilely prepped and draped and locally infiltrated with 1% lidocaine mixed with epinephrine. The lesion/mass was 2 cm in size and a minimum of at least 2-5 mm margin was excised around it with the total excision margin being 2.5 cm. The wound was extensively undermined more than the width of the defect at the level of the underlying fascia and the skin and subcutaneous tissue was advanced to facilitate closure, decrease tension and to prevent distortion of the normal anatomic features. Dog ears were then excised. The wound was then closed in multiple layers, with the total closure length measuring 4 cm. Plan: I instructed the patient regarding wound healing and care. Use of massage, exercises, lotions, and sunscreen. They were instructed regarding activity. What to look for that would require re-evaluation. They were instructed regarding timing of suture removal. We will give them a call regarding their pathology. [email or web address] Not available 09/10/2024 13:35:52 09/24/2024 09/24/2024 Skin, right posterior shoulder, excision: - Epidermal cyst, ruptured with inflammation and fibrosis - Intradermal melanocytic nevus Patient presents for follow-up after having a lesion excised from the right posterior shoulder on 09/10/2024. Pathology was reviewed and discussed with patient. Patient denies any pain or bleeding, feels it has healed nicely. He has no concerns. Examination shows a healing incision to the right posterior shoulder. Sutures were removed without difficulty. There is no erythema, drainage, wound dehiscence or any signs of infection. Patient is alert and oriented, pleasant and cooperative. Plan: I instructed the patient regarding wound healing and care. Use of massage, exercises, lotions, and sunscreen. They were instructed regarding activity. We discussed what to look for that would require re-evaluation. I will plan to see them on an as needed basis. Patient agrees with plan and voices understanding. [email or web address] Not available 10/01/2024 14:42:21 10/04/2024 10/04/2024 Ms. Del Rio is a pleasant 73-year-old female with a past medical history significant [...] most recent serum creatinine is stable at 1.4 with a GFR of 37. Patient continues to hydrate well and to avoid NSAIDs. She also follows up with [facility] nephrology once a year-as she follows up with hematology/oncolog y and urology there aswell Bilateral renal masses concerning for renal cell carcinoma status post robotic partial nephrectomy of the right kidney in January 2023 Patient continues to follow with urology at [facility].Next CT scan in January -2024 -New diagnosis of lung cancer and is scheduled for a repeat MRI in October with possible radiation following. Patient is not currently on any treatment at this time.Follws up at [facility] Discussed about KDIGO recommendations to prevent CKD [...] pills daily ,appt with Hematology/oncolog y - [facility] Hypertension Patient's blood pressure is under good control. Patient will continue with her current med regimen and continue to follow a low-sodium diet. The patient had the opportunity to ask and have questions answered. The patient voiced an understanding of the diagnosis and of the care plan and intent to comply with it. CBC, renal function panel, urine microalbumin/creat inine ratio prior to next appointment follow up in 3 months [email or web address] Not available 10/04/2024 13:15:33 03/07/2025 03/07/2025 Ms. Del Rio is a [...] avoid NSAIDs. She also follows up with [facility] nephrology once a year-as she follows up with hematology/oncolog y and urology there aswell Patient will get a CBC and BMP every 2 weeks with weights dropped to weekly from daily. Bilateral renal masses concerning for renal cell carcinoma status post robotic partial nephrectomy of the right kidney in January 2023 Patient continues to follow with urology at [facility]. New diagnosis of lung cancer earlier in the year and she follows with hematology/oncolog y at [facility] Discussed about KDIGO recommendations to prevent CKD [...] pills daily ,appt with Hematology/[place]colog y - [place] Hypertension Patient's blood pressure is under [...] Organization Details Last Modified Time Details Appointments Lani palacios Patient 15.EST 2025 12:45P M Dr. Vish Chacko Not available Not available Not available Lani palacios Patient 15.EST 2025 10:00A M Dr[facility] Vish Chacko Not available Not available [facility] 10:45A M Dr. Theodora Lee Not available Not available [facility] 15.EST 2025 10:15A M Dr. Sandrine Rosario Not available Not available Not available New Patient Visit 15.NEW 2025 10:30A M Dr. Vish Chacko Not available Not available Not available Lab surgica l patholo gy study - painful cystic mass 2024 025 SAUL [facility], [address] [place] [address], [place], [address], 09/13/2024 11:34:58 Referral None recorde d. Procedures None recorde d. Surgeries None recorde d. Imaging None recorde d. Medication Orders zinc glucona te 30 mg tablet 2024 025 [email or web address] [facility], [facility], [address], [place], [address], 10/15/2024 16:16:33 benzoyl peroxid e 10 % topical cleanse r 2024 025 SAUL [facility], [address] [facility], [address], [place], [address], 10/29/2024 08:43:02 Patient TargetsNo targets recorded. Patient InstructionsNo instructions recorded. Reason for Referral None Reported. Results Created Date Observation Date Name Description Value Unit Range Abnormal Flag Note LastModifiedBy Organization Detail LastModifiedTime 09/11/1909/13/2024 surgi wolf patho logy study tissue exam biopsy [facility] [address],[place] [address] Ph. [phone] Lance Saldana MD, PhD, Medic al [facility] SARKIS TALBOT MD nt: NEPTALI BAL NNE T Sampl e ID: [id number] Repor t Statu s: Final :0 1950 Case #: [id number] Age: 73 Y Gende r: F Date Colle cted: 09/10 MRN # : [id number] Date Recei duncan: 09/10 Repor chaparro Date: 09/13 FINAL DIAGN OSIS: Skin, right poste rior shoul florentin, excis ion: - Epide rmal cyst, ruptu red with infla mmati on and fibro sis - Intra derma l melan ocyti c nevus ICD-1 0: L72.0 ; D22.6 1 Elect sushila Cuevas ied by Arcenio Hernadez MD Elect sushila lopez 09/13 10:25 SPECI MEN SOURC E: Skin, right poste rior shoul florentin, excis ion GROSS DESCR IPTIO N: The speci men conta iner( s) and requi sitio n have the same patie nt name. Recei duncan in 10% neutr al buffe red forma chao for forma chao-f ixed paraf fin-e mbedd ed secti ons label ed righ t poste rior shoul florentin is an unori ented 3.3 x 1.5 cm fragm ent of white -adkins skin excis ed to the depth of 1.8 cm. There is no defin ite lesio n ident ified gross ly on the skin surfa ce. The speci men is inked , seria lly secti oned, and entir yfn submi tted for histo logic study as follo ws: A1 tips, A2-A1 1 remai nder. CLINI WOLF INFOR MATIO N: Skin biops y, right poste rior shoul florentin, painf ul cysti c mass. Not Available [facility] [address] [place] [address], [address], 09/13/2024 11:34:57 08/20/19 25 03/26/2021 imagi ng/di agnos tic resul t No observ ation record ed. [email or web address] Not Available 19:45:16 10/28/19 25 08/02/2018 imagi ng/di agnos tic resul t No observ ation record ed. [email or web address] Not Available 0 10/27/2024 00:00:48 10/28/19 25 10/15/2017 imagi ng/di agnos tic resul t No observ ation record ed. [email or web address] Not Available 0 10/27/2024 00:00:57 10/28/19 25 03/06/2020 imagi ng/di agnos tic resul t No observ ation record ed. [email or web address] Not Available 0 10/27/2024 00:01:32 Result Notes Documentation Provider Name and Address Organization Details Recorded Time Bmp, Serum Or Plasma : This document (1 of 1) was received from [email or web address] on 12/04/2024 through Direct Message along with the following message body content: You have received a 5 page fax at 12/05/2024 3:38:19 AM. * The Caller-ID for this fax is unknown. If you have any questions regarding this message or your service contact Corporate Support: [place] Email: [email or web address] Phone: or Email: [email or web address] Phones: [phone] Thank you for using the [employer] service! [facility] 03/27/2025 05:51:38 Urinalysis, Complete : This document (1 of 1) was received from [email or web address] on 12/06/2024 through Direct Message along with the following message body content: You have received a 3 page fax at 12/06/2024 8:08:04 PM. * The Caller-ID for this fax is [facility]. If you have any questions regarding this message or your service contact Corporate Support: [place] Email: [email or web address] Phone: or Email: [email or web address] Phones: [phone] Thank you for using the [employer] service! Not Available [facility] 12/08/2024 02:39:42 Culture + Sensitivity, Urine : This document (1 of 1) was received from [email or web address] on 12/06/2024 through Direct Message along with the following message body content: You have received a 4 page fax at 12/06/2024 10:48:11 PM. * The Caller-ID for this fax is unknown. If you have any questions regarding this message or your service contact Corporate Support: [place] Email: [email or web address] Phone: or [place] Email: [email or web address] Phones: [phone] Thank you for using the [employer] service! Not Available [facility] 12/08/2024 02:39:42 Culture + Sensitivity, Urine : This document (1 of 1) was received from [email or web address] on 12/08/2024 through Direct Message along with the following message body content: You have received a 3 page fax at 12/08/2024 4:49:30 PM. * The Caller-ID for this fax is [facility]. If you have any questions regarding this message or your service contact Corporate Support: [place] Email: [email or web address] Phone: or Email: [email or web address] Phones: [phone] Thank you for using the [employer] service! Not Available [facility] 12/10/2024 11:19:54 Microalbumin, Urine : This document (1 of 1) was received from [email or web address] on 12/26/2024 through Direct Message along with the following message body content: You have received a 1 page fax at 12/26/2024 5:50:05 AM. * The Caller-ID for this fax is unknown. If you have any questions regarding this message or your service contact Corporate Support: [place] Email: [email or web address] Phone: or Email: [email or web address] Phones: [phone] Thank you for using the [employer] service! Not Available [facility] 12/27/2024 05:43:05 Cbc : This document (1 of 1) was received from [email or web address] on 01/09/2025 through Direct Message along with the following message body content: You have received a 3 page fax at 01/09/2025 5:23:08 PM. * The Caller-ID for this fax is unknown. If you have any questions regarding this message or your service contact [employer] Support: [place] Email: [email or web address] Phone: or Email: [email or web address] Phones: [phone] Thank you for using the [employer] service! Not Available [facility] 01/11/2025 02:42:13 Cbc : This document (1 of 1) was received from [email or web address] on 03/19/2025 through Direct Message along with the following message body content: You have received a 3 page fax at 03/20/2025 3:54:49 AM. * The Caller-ID for this fax is unknown. If you have any questions regarding this message or your service contact [employer] Support: [place] Email: [email or web address] Phone: or Email: [email or web address] Phones: [phone] Thank you for using the [employer] service! Not Available [facility] 03/22/2025 18:34:25 Problems Name Problem SNOMED Code Status Onset Date Resolution Date Notes Provider Name and Address Organization Details Recorded Time Renal insufficie ncy 929663728 Active 2023 Jenn Arteaga [facility] 4 08:56:10 Anemia 133848374 Active 2023 Jenn Arteaga [facility] 4 08:56:23 Chronic kidney disease 383216245 Active 2023 HEATH VICK MD [facility] [place] [address], [address] , [facility] 4 12:27:05 Chronic kidney disease stage 3 291865650 Active 2023 Jenn Arteaga [facility] 4 08:57:00 Edema 776837928 Active 2023 [facility] 08:57:14 Essential hypertensi on 60050670 Active 2023 Jenn Arteaga [facility] 4 08:57:29 Hypokalemi a 23476794 Active 2023 Jenn Arteaga [facility] 4 08:58:04 Iron deficiency anemia 02254005 Active 2023 Jenn Arteaga [facility] 4 08:58:14 Kidney disease 10645282 Active 2023 Jenn Arteaga [facility] 4 09:00:40 Recurrent urinary tract infection 257106069 Active 2023 HEATH VICK MD [facility], [address] , [facility] 4 12:26:47 Hyperglyce haroon due to type 2 diabetes mellitus 7401175873151 09 Active 2023 Jenn Arteaga [facility] 4 09:01:20 Urinary tract infectious disease 29259907 Active 2023 Jenn Arteaga [facility] 4 09:01:30 Acute urinary tract infection 352379945 Active 2023 Jenn Arteaga [facility] 4 16:25:46 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 46729277 Active 2023 Andre Berumen [facility] 5 12:50:26 Itching 227784411 Active 2023 Deanne Lu [facility] 4 11:40:34 Atrophic vaginitis 99677661 Active 2023 HEATH VICK MD [address], [place], [address] , [facility] 4 12:26:43 Abnormal urinalysis 544750347 Active 2023 HEATH VICK MD [address], [place], [address] , [facility] 4 12:26:54 Abscess 257507430 Active 2024 SANDRINE ROSARIO MD [address], [place], [address] , [facility] 5 12:58:50 Abscess of back 025672485 Active 2024 Sarkis Talbot MD [address] , [place], [address] , [facility] 5 11:17:09 Seborrheic keratosis 911936267 Active 2024 Sarkis Talbot MD [address] , [place], [address] , [facility] 5 11:17:13 Lentiginos is 540601215 Active 2024 Sarkis Talbot MD [address], [place], [address] , [facility] 5 11:17:15 Epidermoid cyst 031000821 Active 2024 Sarkis Talbot MD [address], [place], [address] , [facility] 5 11:17:22 Cyst of skin 048362650 Active 2024 [facility] 5 11:14:13 Epidermoid cyst of skin of back 608066393 Active 2024 Sarkis Talbot MD [address], [place], [address] [facility] 5 11:43:05 Epidermoid cyst of skin 368848069 Active 2024 Sarkis Talbot MD [address], [place], [address] , [facility] 5 13:36:13 Candidiasi s of skin 89489199 Active 2024 Andre Berumen [facility] 14:30:53 Problem Notes None recorded. Medical Equipment None Reported. Allergies Allergen ID Allergen Name Allergen Category Reaction Reaction Severity Criticality Documentation Date Start Date Code Code System Note Provider Name and Address Organization Details Recorded Time 8199305 Product containin g penicilli n (product) medicatio n hives Not available Not available 06/14/2024 98906 8001 SNOMED Selene Taylor [facility] 5 10:52:47 9486570 doxycycli ne Not available hives Not available Not available 08/13/2024 3640 RxNorm Brooke Sutherland [facility] 5 12:18:40 4619440 Cipro medicatio n Not available Not available Not available 10/04/202456495 3 RxNorm unrec ogniz ed react ion (text : Hives , code: 44800 2004) (from [facility]ter [facility]) Phylicia Wall [facility] 5 12:20:36 6023992 ciproflox acin medicatio n hives other Not available Not available [facility] 10/04/20242014 2551 RxNorm Unabl e to asses [...] nt) Unabl e to asses s [facility] 5 12:20:41 5174150 clindamyc in Not available Not available Not available [facility] 10/04/20242019 2582 RxNorm Other react ion(s ): GI Upset Other react ion(s ): GI Upset Other react ion(s ): GI Upset unrec ogniz ed react ion (text : Stoma ch upset , code: 02746 9005) (from exter nal sourc e) [facility] 12:20:46 990457 ciproflox acin hydrochlo ride medicatio n Not available Not available Not available 05/23/20232007 98566 RxNorm Not Available [facility] 23:38:20 920305 Iodinated contrast media (substanc e) medicatio n Not available Not available Not available 05/23/20232018 74311 2004 SNOMED Not Available [facility] 23:38:20 768643 fentanyl medicatio n rash Not available Not available 05/23/20232020 4337 RxNorm Not Available [facility] 23:38:20 Medications Name Sig Start Date Stop [...] t Available Vitals Date Recorded Body height Provider Name an d Address Organization Details Last Updated DateTime 09/10/2024 167.64 cm Jasvirartem Porter [facility] 09/10/2024 11:37:13 Date Recorded Body height Heart rate Systolic And Diastolic Provider Name and Address Organization Details Last Updated DateTime 10/04/2024 167.64 cm 112 /min 130/64 mm[Hg] Phylicia Wall [facility] 10/04/2024 12:28:59 Date Recorded Body height Body mass index (BMI) Body weight Heart rate Systolic And Diastolic Provider Name and Address Organization Details Last Updated DateTime 03/07/2025 167.64 cm 36 kg/m2 126311.1 g 104 /min 128/66 mm[Hg] Juan C Leon [facility] 03/07/2025 14:59:28 Social History None recorded. Functional Status None recorded. Mental Status None recorded. Family History Nothing Reported. Medical History Condition Response Cancer Y Anemia Y Gynecological HistoryNo gynecological history recorded. Obstetrics History GPAL:G 0 P 0 0 0 0 Immunizations Vaccine Type Date Status Note Provider Nam e and Address Organization Details Recorded Time COVID-19, mRNA, LNP-S, PF, 30 mcg/0.3 mL dose 1 completed Phylicia Wall [facility] 10/04/2024 12:19:45 COVID-19, mRNA, LNP-S, PF, 30 mcg/0.3 mL dose 1 completed Phylicia Wall [facility] 10/04/2024 12:19:45 COVID-19, mRNA, LNP-S, PF, 30 mcg/0.3 mL dose 2 completed Phylicia Wall [facility] 10/04/2024 12:19:45 COVID-19, mRNA, LNP-S, PF, 30 mcg/0.3 mL dose 1 completed [facility] 10/04/2024 12:19:45 COVID-19, mRNA, LNP-S, bivalent, PF, 30 mcg/0.3 mL dose 2 completed Phylicia Duke [facility] 10/04/2024 12:19:45 pneumococcal polysaccharide PPV23 8 completed [facility] 10/04/2024 12:19:45 Pneumococcal conjugate PCV 13 7 completed Phylicia Duke [facility] 10/04/2024 12:19:45 Pneumococcal conjugate PCV 13 7 completed Phylicia Duke [facility] 10/04/2024 12:19:45 Influenza, high-dose, trivalent, PF 7 completed Phylicia Duke [facility] 10/04/2024 12:19:45 Influenza, split virus, trivalent, preservative 4 completed Phylicia Duke [facility] 10/04/2024 12:19:45 Influenza, split virus, trivalent, PF 7 completed Phylicia Burns [facility] 10/04/2024 12:19:45 influenza, whole 8 completed Phylicia Burns [facility] 10/04/2024 12:19:45 Influenza, split virus, quadrivalent, PF 8 completed [facility] 10/04/2024 12:19:45 COVID-19, mRNA, LNP-S, PF, suzie-sucrose, 30 mcg/0.3 mL 4 completed [facility] 10/04/2024 12:20:23 Past Encounters Encounter ID Performer Location Encounter Start Date Encounter Closed Date Diagnosis/Indication Diagnosis SNOMED-CT Code Diagnosis ICD10 Code Diagnosis IMO Codes Diagnosis Note [id number] Jacqueline Jeong PA-C [facility] [place] [facility] [place] [address] 09/15/2023 10:48:21 09/15/2023 11:52:06 [id number] Theodora Lee MD [facility] [place]) [facility] [place] [address] 11/24/2023 11:57:27 11/24/2023 12:45:34 Anemia 225071446 D64.9 Chronic ki dney disease stage 3 991917727 N18.30 Edema 416656593 R60.9 Essential hypertension 70248907 I10 Hypokalemia 61989276 E87 .6 Iron defic iency anemia 89188747 D50.9 Renal insufficiency 7231 90487 N28.9 [id number] HEATH VICK MD [address] [place] [address] Infectiou s [facility] ([place]) [address] [place] [address] [address] 02/29/2024 11:07:32 02/29/2024 12:08:41 Atrophic vaginitis 53692791 N95.2 29139 Recurrent urinary tract infection 698767071 N39.0 354798 Abnormal urinalysis 1672 38737 R82.90 067970 Chronic ki dney disease 371814302 N18.9 70907487 Carrier of infectious organism 25168901 Z22.322 57505626 [id number] Jacqueline Jeong PA-C [facility] [place]) [facility] [place] [address] 03/15/2024 12:01:14 03/15/2024 12:32:40 Chronic kidney disease stage 3 469674733 N18.30 Edema 156275672 R60.9 Essential hypertension 25394428 I10 Hypokalemia 94991040 E87 .6 Iron defic iency anemia 99613897 D50.9 [id number] SANDRINE ROSARIO MD [facility] 4th Derm ([place]) [address] [place] [address] 05/21/2024 10:49:16 05/21/2024 13:32:23 Abscess 565990137 L02.91 90140 5.6 cm bright red fluctuant nodule right upper back, favored to be an inflamed and infected EIC Elected for Incision & Drainage procedure Inflamed and possibly infected cyst We discussed the diagnosis. We discussed applicable treatment which includes incision and drainage. After reviewing options she elected to proceed with incision and drainage today. The risks and benefits of the procedure, the risks and benefits of alternativ e procedures , as well as the possible consequenc es of not undergoing the procedure were discussed. The patient verbalizes understand ing and gives consent to proceed with treatment. 1% Lidocaine with 1:1000 epinephrin e was used for anesthesia . The lesion was incised using a #11 blade. Copious amounts of purulent fluid was expressed with white particulat e suspicious for cyst sac. A clean, dry dressing was placed.Wou nd care instructio ns were reviewed. Contents were sent for aerobic culture. Sent clindamyci n 300 mg QID x 5 days was sent. Due to her living in a alf care facility, suspicion for MRSA is high. Was unable to tolerated doxycyclin e previously prescribed to her (hives) [id number] Sarkis Talbot MD [facility] ([place]) [address] [facility] [place] [address] 06/14/2024 10:41:48 06/14/2024 11:49:19 Abscess of back 238037802 L02.089 6100755 Seborrheic keratosis 394 189108 L82.1 65340 Lentiginosis 135298859 L 81.4 39206 Epidermoid cyst 21884949 6 L72.0 66573 [id number] Maribel Rojas APRN, POLICY WRITER [facility] [place]) [address] [place] [address] 06/28/2024 15:34:13 07/03/2024 04:52:50 Abscess of back 907014064 L02.541 5060116 [id number] Jacqueline Jeong PA-C [facility] [place]) [address] [facility] [place] [address] 07/12/2024 11:15:46 07/12/2024 11:43:44 Chronic kidney disease stage 3 492730779 N18.30 Essential hypertension 48148269 I10 Hypokalemia 23290086 E87 .6 Edema 728461358 R60.9 Iron defic iency anemia 01137210 D50.9 [id number] Sarkis Talbot MD [facility] [place]) [address] [place] [address] [place] [address] 08/27/2024 10:57:46 08/27/2024 11:42:06 Cyst of skin 562422085 L72.9 80797 Epidermoid cyst of skin of back 367877689 L72.0 0234741130 Hyperglyce haroon due to type 2 diabetes mellitus 9426637581 81778 E11.65 Lentiginosis 449170994 L 81.4 61483 [id number] Sarkis Talbot MD [facility] ([place]) [address] [place] [address] [place] [address] 09/10/2024 11:06:38 09/10/2024 12:18:10 Cyst of skin 838944599 L72.9 51695 Epidermoid cyst of skin 028600394 L72.0 74117 Lentiginosis 836467799 L 81.4 90513 Hyperglyce haroon due to type 2 diabetes mellitus 3825214760 23190 E11.65 Long-term current use of anticoagulant 507309563 Z79.01 64706049 [id number] Maribel Rojas APRN, POLICY WRITER [facility] ([place]) [address] [place] [address] [place] [address] 09/24/2024 15:30:58 09/24/2024 16:00:34 Abscess of back 465320877 L02.678 7606193 [id number] SANDRINE ROSARIO MD [facility] 4th Derm ([place]) [address] [place] [address] 10/15/2024 12:24:32 10/15/2024 13:22:59 Hidradenitis suppurativa 18268365 L73.2 878 - Continue with hibiclens wash every other day. Alternate with benzoyl peroxide.- Continue clindamyci n 1% topical at least daily, preferably twice daily.- Will prescribe zinc gluconate 30 mg BID. There have been some small studies that support the potential for antiinflam matory properties , although unsure if this will help her.- Continue balmex (zinc oxide) cream.- Can prescribe oral clindamyci n in event of future flares.- Patient will be seeing [facility] plastics surgeon Dr. Tanner to discuss potential removals of HS boils. We will track these appointmen ts. [id number] Theodora Lee MD [facility] ([place]) [address] [place] [address] 10/04/2024 11:51:25 10/04/2024 12:55:38 Chronic kidney disease stage 3 349013408 N18.30 Essential hypertension 75522790 I10 Hypokalemia 55104362 E87 .6 Edema 075034606 R60.9 Iron defic iency anemia 31680679 D50.9 [id number] Jacqueline Jeong PA-C [facility] [place]) [address] [place] [address] 03/07/2025 14:30:50 03/07/2025 15:31:24 Chronic kidney disease stage 3 767069307 N18.30 Essential hypertension 95864384 I10 Hypokalemia 09268269 E87 .6 Edema 392038616 R60.9 Iron defic iency anemia 71561727 D50.9 Health Concerns Section Related Observation LastModified by Organization Detai ls LastModified Time None Recorded Concern Status LastModified by Organization Details LastModified Time None Recorded Advance Directives Directive None Recorded Payers Insurance Date Sequence Insurance Name Policy Number Policy Nicholson Covered Member ID Nicholson Member ID Guarantor Name 09/08/2023 1 *SELF PAY* Tae Del Rio 03/08/2025 1 [facility] - [employer] (MEDICARE - MEDICAID REPLACEMENT HMO) [id number] Luis F Del Rio [id number] Marleny Del Rio Notes Date Note Type Note Provider Name and Address Organization Details Recorded Time 10/04/2024 text/html Ms. 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 Theodora Lee MD [address] [place] [address], [phone], [facility] 10/04/2024 13:15:50 10/15/2024 text/html ROS as noted in the HPI Marleny is here for follow up. Patient is here today for follow up of hidradenitis suppurativa. They have been using hibiclens and clindamycin 1% topical since last visit.She is most flared on the groin, though not currently flared badly.Symptoms have improved. Patient would like to talk about zinc supplements for HS today. SANDRINE ROSARIO MD [address] [place] [address], [phone], [facility] 10/15/2024 13:31:25 03/07/2025 text/html ROS as noted in the [...] wheelchair and accompanied by staff from her F. Patient did not bring lab work with her but reports that her kidney function is stable. She continues to hydrate well and to avoid NSAIDs. Jacqueline Jeong PA-C [address] [place] [address], [phone], [facility] 03/07/2025 16:12:35 OBGyn Episode No OBEpisode recorded.
--- OUTSIDE RECORDS SUMMARY | 2025-04-21 15:22 | XMS_ITS | Encounter Summary ---
Author Organization [facility] Address [facility] [place] [address] Care Team Providers Care Bottom Liquor Attendant Name Role Phone Marshall Cuevas MD Primary Care Provider [phone] Asuncion Tanner MD Unavailable Zain Betancur MD Unavailable [phone] Claudio Mendez MD Unavailable [phone] Encounter Details Date Type Department Care Team (Late Contact Info) Description 07/09/2017 Abstract [facility] CONVERSION [address] [place] [address] , Generic Conversion, Social History Tobacco Use Types Packs/Day Years Used Date Smoking Tobacco: Never Comments Unknown Sex and Gender Information Value Date Recorded Sex Assigned at Female 11/13/2024 12:48 PM CDT Legal Sex Female 10:43 PM CDT Gender Identity Not on file Sexual Orientation Not on file documented as of this encounter Plan of Treatment Upcoming Encounters Date Type Department Care Team (Late Contact Info) Description 01/08/2026 1:20 PM CDT Appointment [facility] Office [facility] - Mammography [address] [place] [address] Marshall Cuevas MD [address] [place] [address] documented as of this encounter Visit Diagnoses Not on filedocumented in this encounter Additional Health Concerns Infection Onset Date Last Indicated 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 09/04/2019 09/04/2019 ESBL - Extended Spectrum Beta-lactamase 01/04/2025 1 05/15/2024 documented as of this encounter Care Teams Bottom Liquor Attendant Relationship Specialty Start Date End Date Marshall Cuevas MD [address] [place] [phone] PCP - General FAMILY PRACTICE 03/01/18 Asuncion Tanner MD [address] [place] [address] Consulting Physician PLASTIC SURGERY 12/23/20 Zain Betancur MD [address] [place] [address] Consulting Physician INTERVENTIONAL CARDIOLOGY 01/22/21 06/29/24 Claudio Mendez MD [address] [facility] [address] [place] [address] Physician INTERVENTIONAL CARDIOLOGY 06/29/24 documented as of this encounter
--- OUTSIDE RECORDS SUMMARY | 2025-04-21 15:22 | XMS_ITS ---
Author Organization Unknown Address [address] [place] [phone] Phone Care Team Providers Care Quarter Trimmer Name Role Phone REEMA REYNALDO Attending Unavailable GALINA Hall Primary Unavailable Immunization [...] pneumococcal polysaccharide PPV23 03/13/2018 Completed 33 CVX Results LACTIC ACID - Collect Date/T kathryn: 05/03/2023 17:56 [facility] ID: [id number] [place], [id number] LOINC: 58173-9 Test Value Unit Reference Range Code Code System Flag LACTIC ACID 1.0 mmol/L L=0.7 H=2.1 45122-5 LOINC URINALYSIS w/Microscopy/C&S if indicated - Collect Date/Time: 05/03/2023 15:20 [facility] ID: [id number] [place], [id number] LOINC: 37636-1 Test Value Unit Reference Range Code Code System Flag UR SOURCE UNKNOWN 03353-5 LOINC COLOR LT YELLOW YELLOW 5778-6 LOINC CLARITY CLEAR CLEAR 79145-9 LOINC SPEC GRAVITY 1.015 1.000-1.030 5811-5 LOINC PH 5.5 5.0 - 6.5 5803-2 LOINC LEUK EST 1+ NEGATIVE 5799-2 LOINC A NITRATE NEGATIVE NEGATIVE PROTEIN NEGATIVE NEGATIVE 5804-0 LOINC GLUCOSE NEGATIVE NEGATIVE 90909-1 LOINC KETONES NEGATIVE NEGATIVE 89685-1 LOINC UROBILINOGEN 0.2 NEGATIVE 5818-0 LOINC BILIRUBIN NEGATIVE NEGATIVE 00656-6 LOINC BLOOD 1+ NEGATIVE 97654-1 LOINC WBC 5-10 0 - 2 84189-3 LOINC A RBC 0-2 0 - 2 98968-0 LOINC EPITHELIAL OCCASIONA RARE-FEW 78164-6 LOINC BACTERIA NONE SEEN NONE SEEN 11396-9 LOINC MUCUS NONE SEEN NONE SEEN 8247-9 LOINC YEAST NOT PRESENT NOT PRESENT 09709-2 LOINC CASTS NONE SEEN 59359-4 LOINC CRYSTALS NONE SEEN 75802-8 LOINC CULTURE? NO 8251-1 LOINC DIAGNOSIS ARTERIAL BLOOD GAS - Collect Date/Time: 05/03/2023 15:06 [facility] ID: [id number] [address] [place], [place], [phone] LOINC: 58718-5 Test Value Unit Reference Range Code Code System Flag pH 7.45 L=7.35 H=7.45 2753-2 LOINC PO2 70.0 mmHg L=80.0 H=90.0 28893-2 LOINC L PCO2 43.0 mmHg L=35.0 H=45.0 08718-8 LOINC BE 6.6 mmol/L L=0.0 H=2.0 65295-9 LOINC H BEecf 6.3 mmol/L L=0.0 H=2.0 41894-7 LOINC H HCO3 30.5 mmol/L L=22.0 H=26.0 51237-5 LOINC H A-aDO2 97 mmHg L=7 H=13 54036-9 LOINC H O2Hb 91.0 % L=85.0 H=99.0 81918-7 LOINC sO2m 93.0 % L=85.0 H=98[place]0 [place] [address]-7 LOINC PUNCTURE SITE LEFT RADIAL FIO2 32 % GROUP A STREP BY PCR - Colle ct Date/Time: 05/03/2023 14:25 [facility] ID: [id number] [address] [place] [address], [id number] LOINC: 37350-9 Test Value Unit Reference Range Code Code System Flag GRP A STREP PCR NEGATIVE NORMAL: NEGATIVE LIPASE - Collect Date/Time: 05/03/2023 12:50 [facility] ID: [id number] [address] [place] [address], [id number] LOINC: 3040-3 Test Value Unit Reference Range Code Code System Flag LIPASE 85 U/L L=23 H=300 3040-3 LOINC CBC W/ DIFF - Collect Date/T kathryn: 05/03/2023 12:50 [facility] ID: [id number] [address] [place] [address], [id number] LOINC: 61334-6 Test Value Unit Reference Range Code Code System Flag WBC 5.1 10^3uL L=4.8 H=10.8 RBC 3.83 10^6uL L=4.20 H=5.40 L HEMOGLOBIN 9.8 g/dL L=12.0 H=16.0 718-7 LOINC L HEMATOCRIT 33.3 VOL% L=37.0 H=47.0 4544-3 LOINC L MCV 86.9 fL L=81.0 H=99.0 MCH 25.6 pg L=27.0 H=32.0 L MCHC 29.4 g/dL L=32.0 H=36.0 L PLATELETS 248 10^3uL L=100 H=400 34722-7 LOINC RDW 17.0 % L=11.7 H=15.5 H %GRAN 76.6 % L=40.0 H=70.0 33892-2 LOINC H %LYMPH 16.3 % L=20.0 H=45.0 736-9 LOINC L %MONO 5.5 % L=2.0 H=10.0 80455-7 LOINC %EOS 1.0 % L=0.0 H=6.0 713-8 LOINC %BASO 0.4 % L=0.0 H=3.0 706-2 LOINC #NEUT 3.9 10^3uL L=1.9 H=7.6 93855-6 LOINC #LYMPH 0.8 10^3uL L=0.9 H=4.9 80101-6 LOINC L #MONO 0.3 10^3uL L=0.1 H=0.9 78701-7 LOINC #EOS 0.1 10^3uL L=0.0 H=0.6 712-0 LOINC #BASO 0.02 10^3uL L=0.00 H=0.10 64329-4 LOINC #IM GRANS 0.0 10^3uL L=0.0 H=7.0 13575-9 LOINC %IM GRANS 0.2 % L=0.0 H=5.0 59794-6 LOINC %NRB 0.0 L=0.0 H=0.2 30179-5 LOINC #NRB 0.000 L=0.000 H=0.012 78092-0 LOINC MANUAL DIFF NOT INDICATED RBC MORPH NOT INDICATED COMPREHENSIVE METABOLIC PANE L - Collect Date/Time: 05/03/2023 12:50 [facility] ID: [id number] [address] [place], [place], [id number] LOINC: 66210-5 Test Value Unit Reference Range Code Code System Flag FASTING UNKNOWN BUN 27 mg/dL L=7 H=20 3094-0 LOINC H CREATININE 1.10 mg/dL L=0.52 H=1.04 2160-0 LOINC H GLUCOSE 93 mg/dL L=74 H=106 2345-7 LOINC SODIUM 142 mmol/L L=132 H=144 2951-2 LOINC POTASSIUM 3.4 mmol/L L=3.5 H=5.1 2823-3 LOINC L CHLORIDE 101 mmol/L L=98 H=107 2075-0 LOINC CO2 29.0 mmol/L L=22.0 H=30.0 2028-9 LOINC ANION GAP 15 L=10 H=20 90744-0 LOINC OSMOLALITY 299 mOs/kG L=280 H=296 31428-6 LOINC H BUN/CREAT 24.5 3097-3 LOINC CALCIUM 10.1 mg/dL L=8.3 H=10.5 17933-9 LOINC AST 24 U/L L=15 H=46 1920-8 LOINC ALT 23 U/L L=9 H=72 1742-6 LOINC ALKALINE PHOS 134 U/L L=38 H=126 6768-6 LOINC H TOTAL BILI 0.6 mg/dL L=0.2 H=1.3 1975-2 LOINC ALBUMIN 4.0 G/dL L=3.5 H=5.0 1751-7 LOINC TOTAL PROTEIN 8.9 g/L L=6.3 H=8.2 2885-2 LOINC H A/G RATIO 0.8 27948-2 LOINC AGE 72 15042-1 LOINC eGFR NON-AFR 52 ml/min eGFR AFR AMER 63 ml/min CHEST 1V - Completed: 2023 15:19 LOINC: EXAM DESCRIPTION: CHEST 1V REASON FOR STUDY: Abdominal pain and SOB. Associated diarrhea and fever. Onset 1 week ago. O2 sats down to 88% on room air today. History of asthma, COPD, recurrent UTI, renal insufficiency, diabetes and neuropathy. Duration: 1 week TECHNIQUE: Frontal radiographic view(s) of the chest. COMPARISON: 07/19/2018 FINDINGS: Prominent interstitial markings are noted without overt pulmonary edema. No consolidation. No pleural effusion or pneumothorax. Of note, the patient's chin/neck obscures the apices which limits evaluation. Heart size and mediastinal contours are grossly stable IMPRESSION: 1. No gross acute cardiopulmonary abnormality is seen. THIS IS AN ELECTRONICALLY VERIFIED FINAL REPORT 05/03/2023 3:27 PM - Electronically signed by Venu Ennis M.D. AG: CHARLES Report ID: [id number] Reading Location: [id number] CT ABD/PEL WO CONTRAST - Com pleted: 05/03/2023 14:48 LOINC: 06782-8 EXAM DESCRIPTION: CT ABD/PEL WO CONTRAST REASON FOR STUDY: diffuse pain, ttp upper abdomen, diarrhea hx of kidney cancer Duration: today TECHNIQUE: CT scan of the abdomen and pelvis performed without intravenous and without oral contrast using helical scanning technique. Reconstructed coronal and sagittal MPR images reviewed. All images stored on PACS. Automated exposure control was used as a dose optimization technique for this examination. COMPARISON: 09/23/2022 REFERENCE: Per ACR white paper recommendations, unless otherwise specified no follow-up imaging is recommended for incidental renal and adrenal lesions per consensus recommendations based on imaging criteria. Further lab evaluation could be pursued based on clinical findings. FINDINGS: The sensitivity for detection of visceral lesions is diminished without the use of intravenous contrast. LOWER CHEST: No significant pulmonary abnormalities. No effusion. LIVER: Normal size. No identified cystic or solid masses. GALLBLADDER: Normally distended with layering small calcifications as evidence of small stones. No surrounding induration. BILE DUCTS: No intrahepatic or extrahepatic ductal dilatation. SPLEEN: Normal size. No focal lesions. PANCREAS: No identified cystic or solid masses. No significant calcifications. No adjacent inflammation or peripancreatic fluid collections. Pancreatic duct not dilated. ADRENALS: 1 cm nodular density right adrenal similar to 2019 as evidence of benign process. KIDNEYS/URINARY TRACT: No renal stone or hydronephrosis. No hydroureter. Perinephric calcifications on the right suggesting prior intervention. Please correlate clinically with any prior intervention and with prior MRI suggesting renal masses on 09/23/2022. Urinary bladder is unremarkable. GI: The stomach is poorly distended though there is a suggestion of extensive wall thickening through the fundal region which is new from 2019. Please correlate clinically and consider endoscopy. No surrounding fluid or air collections. The antrum and duodenum appear unremarkable. Loops of small bowel have normal caliber. Terminal ileum, cecum and appendix appear normal. Colon appears unremarkable. PERITONEUM: No ascites or free air. RETROPERITONEUM: Nonenlarged lymph nodes along the small bowel mesentery are similar prior exam. Additional similar findings portacaval space, along the iliac brad chains and inguinal regions. REPRODUCTIVE: 4.6 cm solid fullness uterine fundus suggesting a fibroid. VASCULATURE: No abdominal aortic aneurysm. MUSCULOSKELETAL: No significant abnormality. OTHER: No other abnormality. IMPRESSION: ? ? Suggestion of extensive wall thickening in the region of the gastric fundus. Please correlate clinically and consider endoscopy to better characterize. ? ? Perinephric calcifications on the right suggesting prior intervention. Please correlate clinically with any prior intervention and with prior MRI suggesting renal masses on 09/23/2022. ? ? 1 cm right adrenal nodule unchanged from 2019 as evidence of benign process. ? ? 4.6 cm solid fullness uterine fundus likely related to a fibroid. ? ? Nonenlarged lymph nodes through the small bowel mesentery, portacaval space, iliac brad chains and inguinal regions are similar to prior exam as evidence of benign process. ? ? Multiple gallstones without surrounding induration or biliary ductal dilatation. THIS IS AN ELECTRONICALLY VERIFIED FINAL REPORT 05/03/2023 3:01 PM - Electronically signed by Issac Peacock M.D. RB: TIFFANIE Report ID: [id number] Reading Location: [id number] Social History Type Status Start Date End Date Code Code Syst em Smoking History Never smoker (Never Smoked) 642129303 SNOMED CT Sex Female Gender Identity Female [id number] [address] Medications Medication Start Date End Date Route Frequency Dose Code Code System Medication Instructions Home Meds dilTIAZem HCl 180MG Oral Capsule, Extended Release, 24 HR 06/03/2017 Unknown ORAL ONCE A DAY 180 MILLIGRAMS 889648 RxNorm TAKE 180 MILLIGRAMS ORAL ONCE A DAY Aspirin 81MG Oral Tablet, Enteric Coated 06/03/2017 Unknown ORAL ONCE A DAY 162 MILLIGRAMS 859715 RxNorm TAKE 162 MILLIGRAMS ORAL ONCE A DAY Gabapentin 300MG Oral Capsule 06/03/2017 Unknown ORAL THREE TIMES A DAY 300 MILLIGRAMS 544398 RxNorm TAKE 300 MILLIGRAMS ORAL THREE TIMES A DAY Levemir FlexPen 100U/1ML Subcutaneous Solution 06/03/2017 Unknown SUBCUTA NEOUS AT BEDTIME 33 UNITS 151657 RxNorm INJECT INTO 33 UNITS SUBCUTANEOUS AT BEDTIME Magnesium Oxide 400MG Oral Tablet 06/03/2017 Unknown ORAL ONCE A DAY 400 MILLIGRAMS 505523 RxNorm TAKE 400 MILLIGRAMS ORAL ONCE A DAY Montelukast Sodium 10MG Oral Tablet 06/03/2017 Unknown ORAL AT BEDTIME 10 MILLIGRAMS 808647 RxNorm TAKE 10 MILLIGRAMS ORAL AT BEDTIME Polyethylene Glycol 17GM/1Dose Oral Powder for Solution 06/03/2017 Unknown ORAL NEEDED DAILY 17 GRAMS RxNorm TAKE 17 GRAMS ORAL NEEDED DAILY Potassium Chloride 10MEQ Oral Tablet, Extended Release 06/03/2017 Unknown ORAL TWICE A DAY 20 MEQ 762061 RxNorm TAKE 20 MEQ ORAL TWICE A DAY Spironolacto ne 25MG Oral Tablet 06/03/2017 Unknown ORAL TWICE A DAY 25 MILLIGRAMS 736670 RxNorm TAKE 25 MILLIGRAMS ORAL TWICE A DAY Vitamin D3 2000 IU Oral Capsule, Liquid Filled 06/03/2017 Unknown ORAL ONCE A DAY 2000 UNITS 003879 RxNorm TAKE 2000 UNITS ORAL ONCE A DAY metFORMIN HCl 1000MG Oral Tablet 06/03/2017 Unknown ORAL TWICE A DAY WITH MEALS 1000 MILLIGRAMS 021102 RxNorm TAKE 1000 MILLIGRAMS ORAL TWICE A DAY WITH MEALS Nystatin 638437N/1GM Topical application Cream 10/16/2017 Unknown TOPICAL EVERY 12 HOURS 1 APPLICATION 250923 RxNorm APPLY TO AFFECTED AREA TOPICAL EVERY 12 HOURS Pantoprazole Sodium 40MG Oral Tablet, Enteric Coated 10/16/2017 Unknown BY MOUTH ONCE A DAY 40 MILLIGRAMS 034797 RxNorm TAKE 40 MILLIGRAMS BY MOUTH ONCE A DAY Florastor 250 MG Oral Capsule 10/16/2017 Unknown BY MOUTH TWICE A DAY 250 MILLIGRAMS RxNorm TAKE 250 MILLIGRAMS BY MOUTH TWICE A DAY Abilify 20MG Oral Tablet 10/16/2017 Unknown ORAL ONCE A DAY 20 MILLIGRAMS 186246 RxNorm TAKE 20 MILLIGRAMS ORAL ONCE A DAY Acetaminophe n 325MG Oral Tablet 10/16/2017 Unknown ORAL NEEDED EVERY 6 HOURS 650 MILLIGRAMS 855348 RxNorm TAKE 650 MILLIGRAMS ORAL NEEDED EVERY 6 HOURS Albuterol Sulfate 0.083% Inhalation Solution 10/16/2017 Unknown INHALAT ION NEEDED 4 TIMES A DAY 1 VIAL 576375 RxNorm 1 VIAL INHALATION NEEDED 4 TIMES A DAY Breo Ellipta 200MCG-25MCG /1Act Inhalation Powder 10/16/2017 Unknown INHALAT ION ONCE A DAY 1 PUFF 1056934 RxNorm 1 PUFF INHALATION ONCE A DAY Docusate 100MG Oral Capsule, Liquid Filled 10/16/2017 Unknown ORAL AT BEDTIME 200 MILLIGRAMS 3492477 RxNorm TAKE 200 MILLIGRAMS ORAL AT BEDTIME Vitamin D 78137CR Oral Capsule 10/16/2017 Unknown ORAL ONCE A WEEK 46819 UNITS 0722025 RxNorm TAKE 20349 UNITS ORAL ONCE A WEEK Zetia 10MG Oral Tablet 10/16/2017 Unknown ORAL AT BEDTIME 10 MILLIGRAMS 864135 RxNorm TAKE 10 MILLIGRAMS ORAL AT BEDTIME Melatonin 3 MG Oral Tablet 10/16/2017 Unknown BY MOUTH AT BEDTIME 3 MILLIGRAMS 465493 RxNorm TAKE 3 MILLIGRAMS BY MOUTH AT BEDTIME Furosemide 80MG Oral Tablet 03/13/2018 Unknown BY MOUTH ONCE A DAY 80 MILLIGRAMS 115750 RxNorm TAKE 80 MILLIGRAMS BY MOUTH ONCE [...] Date Status Code Code System PYELONEPHRITIS active 76155707 SNOME D-CT SUPRAVENTRICULAR TACHYCARDIA active 6447628 SNOMED-CT BED-RIDDEN active 131913430 SNOMED-CT SPRAINED RIGHT ANKLE, INITIAL ENCOUNTER active 31544391088316538 SNOME D-CT CELLULITIS OF RIGHT LEG active 389794 17844587972 SNOMED-CT Allergies and Adverse Reactions Allergy Substance Reaction Severity Start Date Concern Status Co de Code System PCN (penicillin) Hives (SNOMED-CT: 490960849) Moderate Active GLYBURIDE Moderate Active 4815 RxNorm CONTRAST MEDIA, IODINE RELATED Hives (SNOMED-CT: 177154577), SOB (SNOMED-CT: 558973955) Severe Active CIPRO Hives (SNOMED-CT: 452292834) Moderate Active 625625 RxNorm [facility] 026 Encounters Encounter Diagnosis Start Date Code Code Sys tem Calculus of gallbladder with out cholecystitis without obstruction 05/03/2023 SNOMED-CT Personal Care Team Section Performer Name Performer Role Active Date Inactive TRAN [place] PCP - Primary care physician Imaging Narrative Notes
--- OUTSIDE RECORDS SUMMARY | 2025-04-21 15:22 | XMS_ITS ---
Author Organization Unknown Address [address] [place] [phone] Phone Care Team Providers Care Malter Operator Name Role Phone SYLWIA PELAEZ Attending Unavailable GALINA Hall Primary Unavailable Immunization [...] polysaccharide PPV23 03/13/2018 Completed 33 CVX Results CBC W/ DIFF - Collect Date/T kathryn: 12/15/2024 20:55 [facility] ID: [id number] [place], [place], [id number] LOINC: 43084-8 Test Value Unit Reference Range Code Code System Flag WBC 6.8 10^3uL L=4.0 H=10.5 RBC 3.36 10^6uL L=4.20 H=5.40 L HEMOGLOBIN 9.3 g/dL L=12.0 H=16.0 718-7 LOINC L HEMATOCRIT 30.8 VOL% L=37.0 H=47.0 4544-3 LOINC L MCV 91.7 fL L=81.0 H=99.0 MCH 27.7 pg L=27.0 H=32.0 MCHC 30.2 g/dL L=32.0 H=36.0 L PLATELETS 199 10^3uL L=100 H=400 20957-4 LOINC RDW 15.9 % L=11.7 H=15.5 H %GRAN 68.7 % L=40.0 H=70.0 93570-5 LOINC %LYMPH 17.7 % L=20.0 H=45.0 736-9 LOINC L %MONO 8.2 % L=2.0 H=10.0 57338-8 LOINC %EOS 4.4 % L=0.0 H=6.0 713-8 LOINC %BASO 0.4 % L=0.0 H=3.0 706-2 LOINC #NEUT 4.7 10^3uL L=1.9 H=7.6 80611-7 LOINC #LYMPH 1.2 10^3uL L=0.9 H=4.9 71804-1 LOINC #MONO 0.6 10^3uL L=0.1 H=0.9 81112-5 LOINC #EOS 0.3 10^3uL L=0.0 H=0.6 712-0 LOINC #BASO 0.03 10^3uL L=0.00 H=0.10 70110-9 LOINC #IM GRANS 0.0 10^3uL L=0.0 H=7.0 70869-6 LOINC %IM GRANS 0.6 % L=0.0 H=5.0 32169-8 LOINC %NRB 0.0 L=0.0 H=0.2 80040-6 LOINC #NRB 0.000 L=0.000 H=0.012 44494-6 LOINC MANUAL DIFF NOT INDICATED RBC MORPH NOT INDICATED COMPREHENSIVE METABOLIC PANE L - Collect Date/Time: 12/15/2024 20:55 [facility] ID: [id number] [place], [place], [id number] LOINC: 25717-6 Test Value Unit Reference Range Code Code System Flag FASTING UNKNOWN BUN 29 mg/dL L=7 H=20 3094-0 LOINC H CREATININE 1.40 mg/dL L=0.52 H=1.04 2160-0 LOINC H GLUCOSE 107 mg/dL L=74 H=106 2345-7 LOINC H SODIUM 141 mmol/L L=132 H=144 2951-2 LOINC POTASSIUM 4.2 mmol/L L=3.5 H=5.1 2823-3 LOINC CHLORIDE 99 mmol/L L=98 H=107 2075-0 LOINC CO2 34.0 mmol/L L=22.0 H=30.0 8-9 LOINC H ANION GAP 12 L=10 H=20 82808-5 LOINC OSMOLALITY 298 mOs/kG L=280 H=296 55759-9 LOINC H BUN/CREAT 20.7 3097-3 LOINC CALCIUM 9.8 mg/dL L=8.3 H=10.5 00827-5 LOINC AST 33 U/L L=15 H=46 1920-8 LOINC ALT 21 U/L L=9 H=72 1742-6 LOINC ALKALINE PHOS 182 U/L L=38 H=126 6768-6 LOINC H TOTAL BILI 0.5 mg/dL L=0.2 H=1.3 1975-2 LOINC ALBUMIN 3.8 G/dL L=3.5 H=5.0 1751-7 LOINC TOTAL PROTEIN 7.9 g/L L=6.3 H=8.2 2885-2 LOINC A/G RATIO 0.9 69613-8 LOINC AGE 74 88343-4 LOINC eGFR NON-AFR 39 ml/min eGFR AFR AMER 47 ml/min URINALYSIS w/Microscopy/C&S if indicated - Collect Date/Time: 12/15/2024 20:40 [facility] ID: [id number] [id number] [place], [place], [id number] LOINC: 82353-3 Test Value Unit Reference Range Code Code System Flag UR SOURCE STRAIGHT CATH 21868-5 LOINC COLOR STRAW YELLOW 5778-6 LOINC CLARITY CLEAR CLEAR 41565-3 LOINC SPEC GRAVITY 1.010 1.000-1.030 5811-5 LOINC PH 7.0 5.0 - 6.5 5803-2 LOINC LEUK EST NEGATIVE NEGATIVE 5799-2 LOINC NITRATE NEGATIVE NEGATIVE PROTEIN NEGATIVE NEGATIVE 5804-0 LOINC GLUCOSE NEGATIVE NEGATIVE 72566-7 LOINC KETONES NEGATIVE NEGATIVE 04242-8 LOINC UROBILINOGEN 0.2 0.2 - 1.0 5818-0 LOINC BILIRUBIN NEGATIVE NEGATIVE 07490-8 LOINC BLOOD NEGATIVE NEGATIVE 12289-2 LOINC WBC 0-2 0 - 2 06310-4 LOINC RBC 0-2 0 - 2 83524-5 LOINC SQ EPITHELIAL RARE RARE-FEW BACTERIA FEW NONE SEEN 47116-6 LOINC MUCUS NONE SEEN NONE SEEN 8247-9 LOINC YEAST NOT PRESENT NOT PRESENT 93844-9 LOINC TRICHOMONAS NOT PRESENT NOT PRESENT 00714-5 LOINC SPERMATOZOA NOT PRESENT NOT PRESENT 29078-0 LOINC CASTS NOT PRESENT 05847-8 LOINC CRYSTALS NOT PRESENT 77844-9 LOINC CULTURE? NO 8251-1 LOINC DIAGNOSIS N/A Social History Type Status Start Date End Date Code Code Syst em Smoking History Never smoker (Never Smoked) 302370826 SNOMED CT Sex Female Gender Identity Female [id number] Medications Medication Start Date End Date Route Frequency Dose Code Code System Medication Instructions Home Meds dilTIAZem HCl 180MG Oral Capsule, Extended Release, 24 HR 06/03/2017 Unknown ORAL ONCE A DAY 180 MILLIGRAMS 570439 RxNorm TAKE 180 MILLIGRAMS ORAL ONCE A DAY Aspirin 81MG Oral Tablet, Enteric Coated 06/03/2017 Unknown ORAL ONCE A DAY 162 MILLIGRAMS 686378 RxNorm TAKE 162 MILLIGRAMS ORAL ONCE A DAY Gabapentin 300MG Oral Capsule 06/03/2017 Unknown ORAL THREE TIMES A DAY 300 MILLIGRAMS 105837 RxNorm TAKE 300 MILLIGRAMS ORAL THREE TIMES A DAY Levemir FlexPen 100U/1ML Subcutaneous Solution 06/03/2017 Unknown SUBCUTA NEOUS AT BEDTIME 33 UNITS 677226 RxNorm INJECT INTO 33 UNITS SUBCUTANEOUS AT BEDTIME Magnesium Oxide 400MG Oral Tablet 06/03/2017 Unknown ORAL ONCE A DAY 400 MILLIGRAMS 815615 RxNorm TAKE 400 MILLIGRAMS ORAL ONCE A DAY Montelukast Sodium 10MG Oral Tablet 06/03/2017 Unknown ORAL AT BEDTIME 10 MILLIGRAMS 20010529 RxNorm TAKE 10 MILLIGRAMS ORAL AT BEDTIME Polyethylene Glycol 17GM/1Dose Oral Powder for Solution 06/03/2017 Unknown ORAL NEEDED DAILY 17 GRAMS RxNorm TAKE 17 GRAMS ORAL NEEDED DAILY Potassium Chloride 10MEQ Oral Tablet, Extended Release 06/03/2017 Unknown ORAL TWICE A DAY 20 MEQ 463779 RxNorm TAKE 20 MEQ ORAL TWICE A DAY Spironolacto ne 25MG Oral Tablet 06/03/2017 Unknown ORAL TWICE A DAY 25 MILLIGRAMS 162735 RxNorm TAKE 25 MILLIGRAMS ORAL TWICE A DAY Vitamin D3 2000 IU Oral Capsule, Liquid Filled 06/03/2017 Unknown ORAL ONCE A DAY 2000 UNITS 052347 RxNorm TAKE 2000 UNITS ORAL ONCE A DAY metFORMIN HCl 1000MG Oral Tablet 06/03/2017 Unknown ORAL TWICE A DAY WITH MEALS 1000 MILLIGRAMS 339272 RxNorm TAKE 1000 MILLIGRAMS ORAL TWICE A DAY WITH MEALS Nystatin 364893V/1GM Topical application Cream 10/16/2017 Unknown TOPICAL EVERY 12 HOURS 1 APPLICATION 213095 RxNorm APPLY TO AFFECTED AREA TOPICAL EVERY 12 HOURS Pantoprazole Sodium 40MG Oral Tablet, Enteric Coated 10/16/2017 Unknown BY MOUTH ONCE A DAY 40 MILLIGRAMS 418791 RxNorm TAKE 40 MILLIGRAMS BY MOUTH ONCE A DAY Florastor 250 MG Oral Capsule 10/16/2017 Unknown BY MOUTH TWICE A DAY 250 MILLIGRAMS RxNorm TAKE 250 MILLIGRAMS BY MOUTH TWICE A DAY Abilify 20MG Oral Tablet 10/16/2017 Unknown ORAL ONCE A DAY 20 MILLIGRAMS 500097 RxNorm TAKE 20 MILLIGRAMS ORAL ONCE A DAY Acetaminophe n 325MG Oral Tablet 10/16/2017 Unknown ORAL NEEDED EVERY 6 HOURS 650 MILLIGRAMS 132625 RxNorm TAKE 650 MILLIGRAMS ORAL NEEDED EVERY 6 HOURS Albuterol Sulfate 0.083% Inhalation Solution 10/16/2017 Unknown INHALAT ION NEEDED 4 TIMES A DAY 1 VIAL 360128 RxNorm 1 VIAL INHALATION NEEDED 4 TIMES A DAY Breo Ellipta 200MCG-25MCG /1Act Inhalation Powder 10/16/2017 Unknown INHALAT ION ONCE A DAY 1 PUFF 5864854 RxNorm 1 PUFF INHALATION ONCE A DAY Docusate 100MG Oral Capsule, Liquid Filled 10/16/2017 Unknown ORAL AT BEDTIME 200 MILLIGRAMS 6274627 RxNorm TAKE 200 MILLIGRAMS ORAL AT BEDTIME Vitamin D 61483ZI Oral Capsule 10/16/2017 Unknown ORAL ONCE A WEEK 94264 UNITS 3444926 RxNorm TAKE 95827 UNITS ORAL ONCE A WEEK Zetia 10MG Oral Tablet 10/16/2017 Unknown ORAL AT BEDTIME 10 MILLIGRAMS 218282 RxNorm TAKE 10 MILLIGRAMS ORAL AT BEDTIME Melatonin 3 MG Oral Tablet 10/16/2017 Unknown BY MOUTH AT BEDTIME 3 MILLIGRAMS 788885 RxNorm TAKE 3 MILLIGRAMS BY MOUTH AT BEDTIME Furosemide 80MG Oral Tablet 03/13/2018 Unknown BY MOUTH ONCE A DAY 80 MILLIGRAMS 809390 RxNorm TAKE 80 MILLIGRAMS BY MOUTH ONCE [...] Date Status Code Code System PYELONEPHRITIS active 34922310 SNOME D-CT SUPRAVENTRICULAR TACHYCARDIA active 8104001 SNOMED-CT BED-RIDDEN active 334328926 SNOMED-CT SPRAINED RIGHT ANKLE, INITIAL ENCOUNTER active 16442282724103700 SNOME D-CT CELLULITIS OF RIGHT LEG active 179095 06044835930 SNOMED-CT Allergies and Adverse Reactions Allergy Substance Reaction Severity Start Date Concern Status Co de Code System PCN (penicillin) Hives (SNOMED-CT: 662829863) Moderate Active GLYBURIDE Moderate Active 4815 RxNorm CONTRAST MEDIA, IODINE RELATED Hives (SNOMED-CT: 479774511), SOB (SNOMED-CT: 717441888) Severe Active CIPRO Hives (SNOMED-CT: 239342333) Moderate Active 20340925 RxNorm Plan of Treatment Aura Established Patient 025 Aura Established Patient 025 Aura Established Patient 026 Encounters Encounter Diagnosis Start Date Code Code Sys tem Retention of urine, unspecified 12/15/2024 SNOMED-CT Personal Care Team Section Performer Name Performer Role Active Date Inactive TRAN Overton PCP - Primary care physician
--- OUTSIDE RECORDS SUMMARY | 2025-04-21 15:49 | XMS_ITS | Clinical Summary ---
Author Organization [facility] Address [address] [place] [address] Care Team Providers Care Color Tester Name Role Phone Brock Kim MD Primary Care Provider [phone] Allergies Active Allergy Reactions Criticality Noted Date [...] renal cell carcinoma with Dr. Pedersen at [place]. 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 There were 2 foci of renal cell carcinoma in the tumor specimen. She still has a left-sided lesion that is being followed. Patient also has a history of pulmonary nodules. She was being followed by a die designer at [facility]. In January 2023 the patient underwent a [...] uses a wheelchair. She lives in a prison. She also has a history of a [...] 2023 Assessment & Plan (06/20/2024 6:41 PM FUN HOUSE ATTENDANT): Cataract Pre-Op Note HPI: Marleny Del Rio [...] phone number at which to reach patient: [phone] Planned Operation: CE/IOL of the left eye [...] 03/19/2025 Orders Only [facility] Issac Pedersen MD 03/14/2025 Telephone [facility] Radiation Oncology [address] [facility] [place] [address] Shaniqua Hinojosa NP 03/13/2025 Telephone [facility] Radiation Oncology [address] [facility] [place] [address] Erika Hess, CRISTIAN 03/13/[facility] [address] [facility] [address] [place] [address] Issac Pedersen MD 03/13/2025 Orders Only [facility] Medicine Surgery [address] [facility] [address] [place] [address] Issac Pedersen MD Dysuria (Primary Dx) 02/28/2025 Telephone [facility] Advanced Medicine Radiation Oncology [address] [facility] [place] [address] Sherry Zarate MA 02/26/2025 Telephone [facility] [address] [place] [address] Advanced Medicine 5th [place] [address] [place] [address] [facility] 02/22/2025 Telephone [facility] Advanced Medicine Radiation Oncology [address] [place] [address] [place] [address] Sherry Zarate MA 02/21/2025 Telephone [facility] Advanced Medicine Radiation Oncology [address] [place] [address] [place] [address] Sherry Zarate MA 02/18/2025 [facility] Advanced Medicine Radiation Oncology [address] [place] [address] [place] [address] Erika Hess RN 02/12/2025 11:43 AM CDT - 02/12/2025 11:59 PM CDT Hospital Encounter [facility] ([facility] [address] [place] [address] Diagnosis unknown Discharge Disposition: Discharge to home or self care 02/07/2025 Telephone [facility] [address] [place] [address] Advanced Medicine 8th [place] [address] [place] [address] Miller Ramos MD PhD from Last 3 [...] on file Legal Sex Female 10:05 PM FUN HOUSE ATTENDANT Gender Identity Not on file Sexual Orientation [...] as needed Medical Devices Implanted Type Area Rag Sorter And Cutter Device Identifier Shelf Expiration Date Model / [...] images may or may not represent the point lay ira source data set and thus may contain changes that may lower the accuracy of this second-opinion interpretation. Electronically signed by: Chito Elder M.D. Narrative 02/12/2025 12:13 PM CDT EXAMINATION: RADIOLOGY CONSULTATION ON OUTSIDE IMAGING STUDY STUDY INITIALLY PERFORMED: 12/08/2024 at [facility]. TYPE OF STUDY: Multiple CT images [...] IMAGING STUDY STUDY INITIALLY PERFORMED: 12/08/2024 at [facility]. TYPE OF STUDY: Multiple CT images [...] images may or may not represent the point lay ira source data set and thus may contain changes that may lower the accuracy of this second-opinion interpretation. Electronically signed by: Chito Elder M.D. Claudia Glass MD [facility] CT PROCEDURES Final Result * (ABNORMAL) eGFR [...] MD LAB BLOOD ORDERABLES Final Result [facility] [address] [place] [address] * POCT hemoglobin A1c (02/07/2023 10:59 AM CDT) Hgb A1C, POC 5.1 4.0 - 5.6 % Est Average Gluc POC 100 mg/dL [facility] Comment: The ADA recommends reporting an estimated Average Glucose (eAG) with all Hemoglobin A1c results using the equation derived from a study of 507 normal and diabetic adults. Minority populations were underrepresented and children were not included. (Diabetes Care 31:1646-0647, 2008). The eAG is not equivalent to a fasting glucose. Blood 02/07/2023 10:5 9 AM CDT 02/07/2023 10:59 AM CDT us Issac Pedersen MD POINT OF CARE TEST ORDERA BLES Final Result [facility] Department [place] [address] from Last 3 Months or Most Recently Relevant to Health Maintenance Insurance [facility] [place] [facility] [place] Advance Directives For more information, please contact: [phone] Documents on File Type Date Recorded Patient Coiled Coil Inspector Expl anation ADVANCE DIRECTIVE 02/08/2023 7:23 AM Goldy r of Floors [facility]-Medical * Full Code (Latest Code Status on File) Date Activated Date Inactivated Comments 02/08/2023 9:05 PM 02/10/2023 11:17 PM Care Teams Color Tester Relationship Specialty Start Date End Date Brock Kim MD [address] [address] PCP - General Pulmonary Disease 04/15/25
--- OUTSIDE RECORDS SUMMARY | 2025-04-21 15:49 | XMS_ITS | Encounter Summary ---
Author Organization [facility] Address [address] [place] [address] Care Team Providers Care Living Coach Name Role Phone Marshall Cuevas MD Primary Care Provider [phone] Brock Kim MD Primary Care Provider [phone] Encounter Details Date Type Department Care Team (Late st Contact Info) Description 02/10/[address] [address] Magdiel Ocasio RN Social History Tobacco Use [...] on file Legal Sex Female 10:05 PM RECEIVING TELLER Gender Identity Not on file Sexual Orientation Straight 10/19/2024 1: 02 PM CDT documented as of this encounter Plan of Treatment Not on file documented as of this encounter Visit Diagnoses Not on filedocumented in this encounter Care Teams Living Coach Relationship Specialty Start Date End Date Marshall Cuevas MD PCP - General Family Medicine 11/16/22 04/14/25 Brock Kim MD [address] [address] PCP - General Pulmonary Disease 04/15/25 documented as of this encounter
--- OUTSIDE RECORDS SUMMARY | 2025-04-21 15:49 | XMS_ITS ---
Author Organization [facility] Address [address] [place] [address] Care Team Providers Care Travel Freight And Passenger Agent Name Role Phone Brock Kim MD Primary Care Provider [phone] Active Problems Patient Care Coordination No te Formatting of this note migh t be different from the original. Referring provider: Dr. Issac Pedersen Ms. Marleny Del Rio is a 72 year old with lung nodules. Patient has a history of rheumatoid arthritis. In January of 2023 the patient underwent a right partial nephrectomy for renal cell carcinoma with Dr. Pedersen at [facility]. 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 There were 2 foci of renal cell carcinoma in the tumor specimen. She still has a left-sided lesion that is being followed. Patient also has a history of pulmonary nodules. She was being followed by a tobacco stemmer machine at [facility]. In January 2023 the patient underwent a [...] uses a wheelchair. She lives in a skilled nursing. She also has a history of a [...] 2023 Assessment & Plan (06/20/2024 6:41 PM GRAIN SACKER): Cataract Pre-Op Note HPI: Marleny Del Rio [...] phone number at which to reach patient: [phone] Planned Operation: CE/IOL of the left eye [...]
--- OUTSIDE RECORDS SUMMARY | 2025-04-21 15:49 | XMS_ITS ---
Author Organization Unknown Address [address] [place] [phone] Phone Care Team Providers Care City Carrier Assistant Name Role Phone BLANK GROSSMAN Attending Unavailable [...] em Smoking History Never smoker (Never Smoked) [id number] SNOMED CT Sex Female Gender Identity Female [id number] Medications Medication Start Date End Date Route Frequency Dose Code Code System Medication Instructions Home Meds dilTIAZem HCl 180MG Oral Capsule, Extended Release, 24 HR 06/03/2017 Unknown ORAL ONCE A DAY 180 MILLIGRAMS 334202 RxNorm TAKE 180 MILLIGRAMS ORAL ONCE A DAY Aspirin 81MG Oral Tablet, Enteric Coated 06/03/2017 Unknown ORAL ONCE A DAY 162 MILLIGRAMS 227456 RxNorm TAKE 162 MILLIGRAMS ORAL ONCE A DAY Gabapentin 300MG Oral Capsule 06/03/2017 Unknown ORAL THREE TIMES A DAY 300 MILLIGRAMS 684251 RxNorm TAKE 300 MILLIGRAMS ORAL THREE TIMES A DAY Levemir FlexPen 100U/1ML Subcutaneous Solution 06/03/2017 Unknown SUBCUTA NEOUS AT BEDTIME 33 UNITS 750082 RxNorm INJECT INTO 33 UNITS SUBCUTANEOUS AT BEDTIME Magnesium Oxide 400MG Oral Tablet 06/03/2017 Unknown ORAL ONCE A DAY 400 MILLIGRAMS 019056 RxNorm TAKE 400 MILLIGRAMS ORAL ONCE A DAY Montelukast Sodium 10MG Oral Tablet 06/03/2017 Unknown ORAL AT BEDTIME 10 MILLIGRAMS 018734 RxNorm TAKE 10 MILLIGRAMS ORAL AT BEDTIME Polyethylene Glycol 17GM/1Dose Oral Powder for Solution 06/03/2017 Unknown ORAL NEEDED DAILY 17 GRAMS RxNorm TAKE 17 GRAMS ORAL NEEDED DAILY Potassium Chloride 10MEQ Oral Tablet, Extended Release 06/03/2017 Unknown ORAL TWICE A DAY 20 MEQ 599694 RxNorm TAKE 20 MEQ ORAL TWICE A DAY Spironolacto ne 25MG Oral Tablet 06/03/2017 Unknown ORAL TWICE A DAY 25 MILLIGRAMS 670225 RxNorm TAKE 25 MILLIGRAMS ORAL TWICE A DAY Vitamin D3 2000 IU Oral Capsule, Liquid Filled 06/03/2017 Unknown ORAL ONCE A DAY 2000 UNITS 206996 RxNorm TAKE 2000 UNITS ORAL ONCE A DAY metFORMIN HCl 1000MG Oral Tablet 06/03/2017 Unknown ORAL TWICE A DAY WITH MEALS 1000 MILLIGRAMS 251290 RxNorm TAKE 1000 MILLIGRAMS ORAL TWICE A DAY WITH MEALS Nystatin 999878R/1GM Topical application Cream 10/16/2017 Unknown TOPICAL EVERY 12 HOURS 1 APPLICATION 686987 RxNorm APPLY TO AFFECTED AREA TOPICAL EVERY 12 HOURS Pantoprazole Sodium 40MG Oral Tablet, Enteric Coated 10/16/2017 Unknown BY MOUTH ONCE A DAY 40 MILLIGRAMS 600663 RxNorm TAKE 40 MILLIGRAMS BY MOUTH ONCE A DAY Florastor 250 MG Oral Capsule 10/16/2017 Unknown BY MOUTH TWICE A DAY 250 MILLIGRAMS RxNorm TAKE 250 MILLIGRAMS BY MOUTH TWICE A DAY Abilify 20MG Oral Tablet 10/16/2017 Unknown ORAL ONCE A DAY 20 MILLIGRAMS 782614 RxNorm TAKE 20 MILLIGRAMS ORAL ONCE A DAY Acetaminophe n 325MG Oral Tablet 10/16/2017 Unknown ORAL NEEDED EVERY 6 HOURS 650 MILLIGRAMS 718586 RxNorm TAKE 650 MILLIGRAMS ORAL NEEDED EVERY 6 HOURS Albuterol Sulfate 0.083% Inhalation Solution 10/16/2017 Unknown INHALAT ION NEEDED 4 TIMES A DAY 1 VIAL 051609 RxNorm 1 VIAL INHALATION NEEDED 4 TIMES A DAY Breo Ellipta 200MCG-25MCG /1Act Inhalation Powder 10/16/2017 Unknown INHALAT ION ONCE A DAY 1 PUFF 0195448 RxNorm 1 PUFF INHALATION ONCE A DAY Docusate 100MG Oral Capsule, Liquid Filled 10/16/2017 Unknown ORAL AT BEDTIME 200 MILLIGRAMS 2165821 RxNorm TAKE 200 MILLIGRAMS ORAL AT BEDTIME Vitamin D 55217RC Oral Capsule 10/16/2017 Unknown ORAL ONCE A WEEK 80251 UNITS 2707017 RxNorm TAKE 34082 UNITS ORAL ONCE A WEEK Zetia 10MG Oral Tablet 10/16/2017 Unknown ORAL AT BEDTIME 10 MILLIGRAMS 945276 RxNorm TAKE 10 MILLIGRAMS ORAL AT BEDTIME Melatonin 3 MG Oral Tablet 10/16/2017 Unknown BY MOUTH AT BEDTIME 3 MILLIGRAMS 297996 RxNorm TAKE 3 MILLIGRAMS BY MOUTH AT BEDTIME Furosemide 80MG Oral Tablet 03/13/2018 Unknown BY MOUTH ONCE A DAY 80 MILLIGRAMS 794265 RxNorm TAKE 80 MILLIGRAMS BY MOUTH ONCE [...] Date Status Code Code System PYELONEPHRITIS active 92113191 SNOME D-CT SUPRAVENTRICULAR TACHYCARDIA active 1140933 SNOMED-CT BED-RIDDEN active 726654898 SNOMED-CT SPRAINED RIGHT ANKLE, INITIAL ENCOUNTER active 27351269394994001 SNOME D-CT CELLULITIS OF RIGHT LEG active 606967 89163009969 SNOMED-CT Allergies and Adverse Reactions Allergy Substance Reaction Severity Start Date Concern Status Co de Code System PCN (penicillin) Hives (SNOMED-CT: 744627493) Moderate Active GLYBURIDE Moderate Active 4815 RxNorm CONTRAST MEDIA, IODINE RELATED Hives (SNOMED-CT: 970304184), SOB (SNOMED-CT: 677649588) Severe Active CIPRO Hives (SNOMED-CT: 054391792) Moderate Active 811696 RxNorm Plan of Treatment Julio Established Patient 025 Aura Established Patient 025 Aura Established Patient 026 Encounters Encounter Diagnosis Start Date Code Code Sys tem Lung field abnormal 08/16/2023 152871156 SNOMED-C T Personal Care Team Section Performer Name Performer Role Active Date Inactive TRAN Overton PCP - Primary care physician
--- OUTSIDE RECORDS SUMMARY | 2025-04-21 15:49 | XMS_ITS | Encounter Summary ---
Author Organization [facility] Address [address] [place] [address] Phone Care Team Providers Care Maintenance Worker House Trailer Name Role Phone Unavailable Primary Care Provider Unavailabl e Encounter Details Date Type Department Care Team (Late st Contact Info) Description 05/20/2020 Lab Requisition [facility] Laboratory Services [address] [place] [address] Marshall Cuevas MD [address] [place] [address] Hypokalemia Social History Tobacco Use Types Packs/Day Years Used Date Smoking Tobacco: Never Assessed Comments Unknown Sex and Gender Information Value Date Recorded Sex Assigned at Not on file Legal Sex Female 8:20 PM SOAKER MEAT Gender Identity Not on file Sexual Orientation Not on file documented as of this encounter Plan of Treatment Not on file documented as of this encounter Procedures Procedure Name Priority Date/Time Associated Diagnosis Comments BASIC METABOLIC PANEL W/ CALCIUM TOTAL Routine 05/20/2020 6:20 PM SOAKER MEAT Hypokalemia documented in this encounter Results * (ABNORMAL) BASIC METABOLIC PANEL W/ CALCIUM TOTAL (05/20/2020 6:20 PM SOAKER MEAT) SODIUM 132(L) 133 - 145 mmol/L 05/20/2020 8:39 PM [facility] POTASSIUM 4.7 3.5 - 5.1 mmol/L 05/20/2020 8:39 PM [facility] CHLORIDE 93(L) 96 - 108 mmol/L 05/20/2020 8:39 PM [facility] CO2, VENOUS 30 21 - 32 mmol/L 05/20/2020 8:39 PM [facility] ANION GAP 13.7 10.0 - 20.0 mmol/L 05/20/2020 8:39 PM [facility] GLUCOSE 172(H) 80 - 115 mg/dL 05/20/2020 8:39 PM [facility] BUN 72(H) 6 - 19 mg/dL 05/20/2020 8:39 PM [facility] CREATININE, BLOOD 1.80(H) 0.40 - 1.10 mg/dL 05/20/2020 8:39 PM [facility] BUN/CREATININE RATIO 40(H) 12 - 20 ratio 05/20/2020 8:39 PM [facility] CALCIUM 10.0 8.8 - 10.0 mg/dL 05/20/2020 8:39 PM [facility] Blood No Phlebotomy Charged / Unknown 05/20/2020 6:20 PM SOAKER MEAT 05/20/2020 8:24 PM [facility] us Marshall Cuevas MD CHEMISTRY ORDERABLES Final Resu lt [facility] [address] [place] [address] documented in this encounter Visit Diagnoses Diagnosis Hypokalemia Hypopotassemia documented in this encounter
--- OUTSIDE RECORDS SUMMARY | 2025-04-21 15:49 | XMS_ITS | Clinical Summary ---
Author Organization [facility] Address [address] [place] [address] Phone Care Team Providers Care Electric Knife Operator Name Role Phone Unavailable Primary Care Provider Unavailabl e Social History Tobacco Use Types Packs/Day Years Used Date Smoking Tobacco: Never Assessed Comments Unknown Sex and Gender Information Value Date Recorded Sex Assigned at Not on file Legal Sex Female 8:20 PM COUNSELING SERVICES DIRECTOR Gender Identity Not on file Sexual Orientation Not on file Plan of Treatment Not on file
--- OUTSIDE RECORDS SUMMARY | 2025-04-21 15:49 | XMS_ITS ---
Author Organization Unknown Address [address] [place] [phone] Phone Care Team Providers Care Customer Advisor Specialist Name Role Phone JUSTINO MALDONADO Attending Unavailable GALINA Hall Primary Unavailable Immunization [...] polysaccharide PPV23 03/13/2018 Completed 33 CVX Results CHEST 1V - Completed: 2023 11:39 LOINC: EXAM DESCRIPTION: CHEST 1V REASON FOR STUDY: cough fever sob questionable pneumonia hx of copd breast reduction, cardiac ablation pt unable to lift chin or stand best obtainable image Duration: 3 days TECHNIQUE: Frontal radiographic view(s) of the chest. COMPARISON: Chest radiographs dated 05/03/2023. FINDINGS: LUNGS: Mild bibasilar atelectasis and/or scarring. Coarsened interstitial lung markings bilaterally which may be seen with chronic interstitial lung changes. No focal airspace consolidation. No pleural effusion or pneumothorax. HEART/MEDIASTINUM: Stable cardiomediastinal silhouette. Atherosclerotic vascular calcifications of the thoracic aorta are noted. LINES/TUBES: None. BONES: No acute osseous abnormality. IMPRESSION: No acute cardiopulmonary abnormality. THIS IS AN ELECTRONICALLY VERIFIED FINAL REPORT 03/17/2024 11:16 AM - Electronically signed by Tanmay Neves M.D. MF: [id number] Report ID: [id number] Reading Location: [id number] Social History Type Status Start Date End Date Code Code Syst em Smoking History Never smoker (Never Smoked) 283444343 SNOMED CT Sex Female Gender Identity Female [id number] Medications Medication Start Date End Date Route Frequency Dose Code Code System Medication Instructions Home Meds dilTIAZem HCl 180MG Oral Capsule, Extended Release, 24 HR 06/03/2017 Unknown ORAL ONCE A DAY 180 MILLIGRAMS 225367 RxNorm TAKE 180 MILLIGRAMS ORAL ONCE A DAY Aspirin 81MG Oral Tablet, Enteric Coated 06/03/2017 Unknown ORAL ONCE A DAY 162 MILLIGRAMS 071015 RxNorm TAKE 162 MILLIGRAMS ORAL ONCE A DAY Gabapentin 300MG Oral Capsule 06/03/2017 Unknown ORAL THREE TIMES A DAY 300 MILLIGRAMS 011530 RxNorm TAKE 300 MILLIGRAMS ORAL THREE TIMES A DAY Levemir FlexPen 100U/1ML Subcutaneous Solution 06/03/2017 Unknown SUBCUTA NEOUS AT BEDTIME 33 UNITS 421026 RxNorm INJECT INTO 33 UNITS SUBCUTANEOUS AT BEDTIME Magnesium Oxide 400MG Oral Tablet 06/03/2017 Unknown ORAL ONCE A DAY 400 MILLIGRAMS 020176 RxNorm TAKE 400 MILLIGRAMS ORAL ONCE A DAY Montelukast Sodium 10MG Oral Tablet 06/03/2017 Unknown ORAL AT BEDTIME 10 MILLIGRAMS 828192 RxNorm TAKE 10 MILLIGRAMS ORAL AT BEDTIME Polyethylene Glycol 17GM/1Dose Oral Powder for Solution 06/03/2017 Unknown ORAL NEEDED DAILY 17 GRAMS RxNorm TAKE 17 GRAMS ORAL NEEDED DAILY Potassium Chloride 10MEQ Oral Tablet, Extended Release 06/03/2017 Unknown ORAL TWICE A DAY 20 MEQ 306190 RxNorm TAKE 20 MEQ ORAL TWICE A DAY Spironolacto ne 25MG Oral Tablet 06/03/2017 Unknown ORAL TWICE A DAY 25 MILLIGRAMS 404125 RxNorm TAKE 25 MILLIGRAMS ORAL TWICE A DAY Vitamin D3 2000 IU Oral Capsule, Liquid Filled 06/03/2017 Unknown ORAL ONCE A DAY 2000 UNITS 514516 RxNorm TAKE 2000 UNITS ORAL ONCE A DAY metFORMIN HCl 1000MG Oral Tablet 06/03/2017 Unknown ORAL TWICE A DAY WITH MEALS 1000 MILLIGRAMS 243725 RxNorm TAKE 1000 MILLIGRAMS ORAL TWICE A DAY WITH MEALS Nystatin 326432T/1GM Topical application Cream 10/16/2017 Unknown TOPICAL EVERY 12 HOURS 1 APPLICATION 996588 RxNorm APPLY TO AFFECTED AREA TOPICAL EVERY 12 HOURS Pantoprazole Sodium 40MG Oral Tablet, Enteric Coated 10/16/2017 Unknown BY MOUTH ONCE A DAY 40 MILLIGRAMS 713664 RxNorm TAKE 40 MILLIGRAMS BY MOUTH ONCE A DAY Florastor 250 MG Oral Capsule 10/16/2017 Unknown BY MOUTH TWICE A DAY 250 MILLIGRAMS RxNorm TAKE 250 MILLIGRAMS BY MOUTH TWICE A DAY Abilify 20MG Oral Tablet 10/16/2017 Unknown ORAL ONCE A DAY 20 MILLIGRAMS 808464 RxNorm TAKE 20 MILLIGRAMS ORAL ONCE A DAY Acetaminophe n 325MG Oral Tablet 10/16/2017 Unknown ORAL NEEDED EVERY 6 HOURS 650 MILLIGRAMS 750620 RxNorm TAKE 650 MILLIGRAMS ORAL NEEDED EVERY 6 HOURS Albuterol Sulfate 0.083% Inhalation Solution 10/16/2017 Unknown INHALAT ION NEEDED 4 TIMES A DAY 1 VIAL 870516 RxNorm 1 VIAL INHALATION NEEDED 4 TIMES A DAY Breo Ellipta 200MCG-25MCG /1Act Inhalation Powder 10/16/2017 Unknown INHALAT ION ONCE A DAY 1 PUFF 1285512 RxNorm 1 PUFF INHALATION ONCE A DAY Docusate 100MG Oral Capsule, Liquid Filled 10/16/2017 Unknown ORAL AT BEDTIME 200 MILLIGRAMS 7467601 RxNorm TAKE 200 MILLIGRAMS ORAL AT BEDTIME Vitamin D 79274OE Oral Capsule 10/16/2017 Unknown ORAL ONCE A WEEK 72508 UNITS 9503801 RxNorm TAKE 25716 UNITS ORAL ONCE A WEEK Zetia 10MG Oral Tablet 10/16/2017 Unknown ORAL AT BEDTIME 10 MILLIGRAMS 390354 RxNorm TAKE 10 MILLIGRAMS ORAL AT BEDTIME Melatonin 3 MG Oral Tablet 10/16/2017 Unknown BY MOUTH AT BEDTIME 3 MILLIGRAMS 19900925 RxNorm TAKE 3 MILLIGRAMS BY MOUTH AT BEDTIME Furosemide 80MG Oral Tablet 03/13/2018 Unknown BY MOUTH ONCE A DAY 80 MILLIGRAMS 19760624 RxNorm TAKE 80 MILLIGRAMS BY MOUTH ONCE [...] Date Status Code Code System PYELONEPHRITIS active 76821327 SNOME D-CT SUPRAVENTRICULAR TACHYCARDIA active 9784777 SNOMED-CT BED-RIDDEN active 187060177 SNOMED-CT SPRAINED RIGHT ANKLE, INITIAL ENCOUNTER active 40026330687122255 SNOME D-CT CELLULITIS OF RIGHT LEG active 718857 99360323224 SNOMED-CT Allergies and Adverse Reactions Allergy Substance Reaction Severity Start Date Concern Status Co de Code System PCN (penicillin) Hives (SNOMED-CT: 201813562) Moderate Active GLYBURIDE Moderate Active 4815 RxNorm CONTRAST MEDIA, IODINE RELATED Hives (SNOMED-CT: 842800973), SOB (SNOMED-CT: 653928987) Severe Active CIPRO Hives (SNOMED-CT: 205869708) Moderate Active 754194 RxNorm Plan of [facility]25 [facility] Establ[facility] Patient 026 Encounters Encounter Diagnosis Start Date Code Code Sys tem Acute exacerbation of chroni c obstructive airways disease 03/14/2024 544737921 SNOMED-CT Personal Care Team Section Performer Name Performer Role Active Date Inactive Da TRAN Stephens PCP - Primary care physician Imaging Narrative Notes
--- OUTSIDE RECORDS SUMMARY | 2025-04-21 15:50 | XMS_ITS | Encounter Summary ---
Author Organization [facility] Address [facility] [place] [address] Care Team Providers Care Ware Finisher Name Role Phone Marshall Cuevas MD Primary Care Provider Asuncion Tanner MD Unavailable Zain Betancur MD Unavailable [phone] Claudio Mendez MD Unavailable [phone] Encounter Details Date Type Department Care Team (Late st Contact Info) Description 09/30/2018 Abstract SFL CONVERSION [address] [place] [address] , Generic Conversion, Social History Tobacco Use [...] Info) Description 01/08/2026 1:20 PM CDT Appointment [facility] - Mammography [address] [place] [address] Marshall Cuevas MD [address] [place] [phone] documented as of this encounter Visit Diagnoses Not on filedocumented in this encounter Additional Health Concerns Infection Onset Date Last Indicated 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 09/04/2019 09/04/2019 ESBL - Extended Spectrum Beta-lactamase 01/04/2025 1 05/15/2024 documented as of this encounter Care Teams Ware Finisher Relationship Specialty Start Date End Date Marshall Cuevas MD [address] [place] [address] PCP - General FAMILY PRACTICE 03/01/18 Asuncion Tanner MD [address] [place] [address] Consulting Physician PLASTIC SURGERY 12/23/20 Zain Betancur MD [address], [place] [address] Consulting Physician INTERVENTIONAL CARDIOLOGY 01/22/21 06/29/24 Claudio Mendez MD [address] [facility] [address] [place] [address] Physician INTERVENTIONAL CARDIOLOGY 06/29/24 documented as of this encounter
--- OUTSIDE RECORDS SUMMARY | 2025-04-21 15:50 | XMS_ITS ---
Author Organization Unknown Address [address] [place] [phone] Phone Care Team Providers Care Wheat Shipper Name Role Phone REEMA REYNALDO Attending Unavailable [...] ACID - Collect Date/T kathryn: 05/03/2023 17:56 [facility] ID: [id number] [place], [place], [id number] LOINC: 88865-1 Test Value Unit Reference Range Code Code System Flag LACTIC ACID 1.0 mmol/L L=0.7 H=2.1 87551-1 LOINC URINALYSIS w/Microscopy/C&S if indicated - Collect Date/Time: 05/03/2023 15:20 [facility] ID: [id number] [place], [place], [id number] LOINC: 00804-9 Test Value Unit Reference Range Code Code System Flag UR SOURCE UNKNOWN 69635-5 LOINC COLOR LT YELLOW YELLOW 5778-6 LOINC CLARITY CLEAR CLEAR 97412-5 LOINC SPEC GRAVITY 1.015 1.000-1.030 5811-5 LOINC PH 5.5 5.0 - 6.5 5803-2 LOINC LEUK EST 1+ NEGATIVE 5799-2 LOINC A NITRATE NEGATIVE NEGATIVE PROTEIN NEGATIVE NEGATIVE 5804-0 LOINC GLUCOSE NEGATIVE NEGATIVE 36841-7 LOINC KETONES NEGATIVE NEGATIVE 57607-2 LOINC UROBILINOGEN 0.2 NEGATIVE 5818-0 LOINC BILIRUBIN NEGATIVE NEGATIVE 82865-4 LOINC BLOOD 1+ NEGATIVE 64898-9 LOINC WBC 5-10 0 - 2 54272-1 LOINC A RBC 0-2 0 - 2 53451-8 LOINC EPITHELIAL OCCASIONA RARE-FEW 75453-0 LOINC BACTERIA NONE SEEN NONE SEEN 37578-4 LOINC MUCUS NONE SEEN NONE SEEN 8247-9 LOINC YEAST NOT PRESENT NOT PRESENT 15320-3 LOINC CASTS NONE SEEN 26087-2 LOINC CRYSTALS NONE SEEN 19833-1 LOINC CULTURE? NO 8251-1 LOINC DIAGNOSIS ARTERIAL BLOOD GAS - Collect Date/Time: 05/03/2023 15:06 [facility] ID: [id number] [place], [place], [id number] LOINC: 37041-1 Test Value Unit Reference Range Code Code System Flag pH 7.45 L=7.35 H=7.45 2753-2 LOINC PO2 70.0 mmHg L=80.0 H=90.0 62176-3 LOINC L PCO2 43.0 mmHg L=35.0 H=45.0 89343-3 LOINC BE 6.6 mmol/L L=0.0 H=2.0 71478-5 LOINC H BEecf 6.3 mmol/L L=0.0 H=2.0 10103-7 LOINC H HCO3 30.5 mmol/L L=22.0 H=26.0 07532-6 LOINC H A-aDO2 97 mmHg L=7 H=13 45122-8 LOINC H O2Hb 91.0 % L=85.0 H=99.0 48232-1 LOINC sO2m 93.0 % L=85.0 H=98[place]0 [place] [address]-3 LOINC PUNCTURE SITE LEFT RADIAL FIO2 32 % GROUP A STREP BY PCR - Colle ct Date/Time: 05/03/2023 14:25 [facility] ID: [id number] [place], [place], [id number] LOINC: 19236-1 Test Value Unit Reference Range Code Code System Flag GRP A STREP PCR NEGATIVE NORMAL: NEGATIVE LIPASE - Collect Date/Time: 05/03/2023 12:50 [facility] ID: [id number] [place], [place], [id number] LOINC: 3040-3 Test Value Unit Reference Range Code Code System Flag LIPASE 85 U/L L=23 H=300 3040-3 LOINC CBC W/ DIFF - Collect Date/T kathryn: 05/03/2023 12:50 [facility] ID: [id number] [place], [place], [id number] LOINC: 81402-1 Test Value Unit Reference Range Code Code System Flag WBC 5.1 10^3uL L=4.8 H=10.8 RBC 3.83 10^6uL L=4.20 H=5.40 L HEMOGLOBIN 9.8 g/dL L=12.0 H=16.0 718-7 LOINC L HEMATOCRIT 33.3 VOL% L=37.0 H=47.0 4544-3 LOINC L MCV 86.9 fL L=81.0 H=99.0 MCH 25.6 pg L=27.0 H=32.0 L MCHC 29.4 g/dL L=32.0 H=36.0 L PLATELETS 248 10^3uL L=100 H=400 50304-4 LOINC RDW 17.0 % L=11.7 H=15.5 H %GRAN 76.6 % L=40.0 H=70.0 48161-0 LOINC H %LYMPH 16.3 % L=20.0 H=45.0 736-9 LOINC L %MONO 5.5 % L=2.0 H=10.0 00057-5 LOINC %EOS 1.0 % L=0.0 H=6.0 713-8 LOINC %BASO 0.4 % L=0.0 H=3.0 706-2 LOINC #NEUT 3.9 10^3uL L=1.9 H=7.6 90465-0 LOINC #LYMPH 0.8 10^3uL L=0.9 H=4.9 74083-1 LOINC L #MONO 0.3 10^3uL L=0.1 H=0.9 13673-9 LOINC #EOS 0.1 10^3uL L=0.0 H=0.6 712-0 LOINC #BASO 0.02 10^3uL L=0.00 H=0.10 32411-8 LOINC #IM GRANS 0.0 10^3uL L=0.0 H=7.0 63502-5 LOINC %IM GRANS 0.2 % L=0.0 H=5.0 89008-7 LOINC %NRB 0.0 L=0.0 H=0.2 28197-7 LOINC #NRB 0.000 L=0.000 H=0.012 93013-2 LOINC MANUAL DIFF NOT INDICATED RBC MORPH NOT INDICATED COMPREHENSIVE METABOLIC PANE L - Collect Date/Time: 05/03/2023 12:50 [facility] ID: [id number] [place], [place], [id number] LOINC: 85981-4 Test Value Unit Reference Range Code Code [...] 2028-9 LOINC ANION GAP 15 L=10 H=20 48062-4 LOINC OSMOLALITY 299 mOs/kG L=280 H=296 93292-5 LOINC H BUN/CREAT 24.5 3097-3 LOINC CALCIUM 10.1 mg/dL L=8.3 H=10.5 18137-7 LOINC AST 24 U/L L=15 H=46 1920-8 LOINC ALT 23 U/L L=9 H=72 1742-6 LOINC ALKALINE PHOS 134 U/L L=38 H=126 6768-6 LOINC H TOTAL BILI 0.6 mg/dL L=0.2 H=1.3 1975-2 LOINC ALBUMIN 4.0 G/dL L=3.5 H=5.0 1751-7 LOINC TOTAL PROTEIN 8.9 g/L L=6.3 H=8.2 2885-2 LOINC H A/G RATIO 0.8 36235-8 LOINC AGE 72 24185-5 LOINC eGFR NON-AFR 52 ml/min eGFR AFR [...] Venu Ennis M.D. AG: CHARLES Report ID: [id number] Reading Location: [place] [address] CT ABD/PEL WO CONTRAST - Com pleted: 05/03/2023 14:48 LOINC: 31011-4 EXAM DESCRIPTION: CT ABD/PEL WO CONTRAST REASON [...] Issac Peacock M.D. RB: TIFFANIE Report ID: [id number] Reading Location: [id number] Social History Type Status Start Date End Date Code Code Syst em Smoking History Never smoker (Never Smoked) 116606635 SNOMED CT Sex Female Gender Identity Female [id number] [address] Medications Medication Start Date End Date Route Frequency Dose Code Code System Medication Instructions Home Meds dilTIAZem HCl 180MG Oral Capsule, Extended Release, 24 HR 06/03/2017 Unknown ORAL ONCE A DAY 180 MILLIGRAMS 796193 RxNorm TAKE 180 MILLIGRAMS ORAL ONCE A DAY Aspirin 81MG Oral Tablet, Enteric Coated 06/03/2017 Unknown ORAL ONCE A DAY 162 MILLIGRAMS 696416 RxNorm TAKE 162 MILLIGRAMS ORAL ONCE A DAY Gabapentin 300MG Oral Capsule 06/03/2017 Unknown ORAL THREE TIMES A DAY 300 MILLIGRAMS 793329 RxNorm TAKE 300 MILLIGRAMS ORAL THREE TIMES A DAY Levemir FlexPen 100U/1ML Subcutaneous Solution 06/03/2017 Unknown SUBCUTA NEOUS AT BEDTIME 33 UNITS 374947 RxNorm INJECT INTO 33 UNITS SUBCUTANEOUS AT BEDTIME Magnesium Oxide 400MG Oral Tablet 06/03/2017 Unknown ORAL ONCE A DAY 400 MILLIGRAMS 073614 RxNorm TAKE 400 MILLIGRAMS ORAL ONCE A DAY Montelukast Sodium 10MG Oral Tablet 06/03/2017 Unknown ORAL AT BEDTIME 10 MILLIGRAMS 996416 RxNorm TAKE 10 MILLIGRAMS ORAL AT BEDTIME Polyethylene Glycol 17GM/1Dose Oral Powder for Solution 06/03/2017 Unknown ORAL NEEDED DAILY 17 GRAMS RxNorm TAKE 17 GRAMS ORAL NEEDED DAILY Potassium Chloride 10MEQ Oral Tablet, Extended Release 06/03/2017 Unknown ORAL TWICE A DAY 20 MEQ 430543 RxNorm TAKE 20 MEQ ORAL TWICE A DAY Spironolacto ne 25MG Oral Tablet 06/03/2017 Unknown ORAL TWICE A DAY 25 MILLIGRAMS 721666 RxNorm TAKE 25 MILLIGRAMS ORAL TWICE A DAY Vitamin D3 2000 IU Oral Capsule, Liquid Filled 06/03/2017 Unknown ORAL ONCE A DAY 2000 UNITS 426389 RxNorm TAKE 2000 UNITS ORAL ONCE A DAY metFORMIN HCl 1000MG Oral Tablet 06/03/2017 Unknown ORAL TWICE A DAY WITH MEALS 1000 MILLIGRAMS 035289 RxNorm TAKE 1000 MILLIGRAMS ORAL TWICE A DAY WITH MEALS Nystatin 409457E/1GM Topical application Cream 10/16/2017 Unknown TOPICAL EVERY 12 HOURS 1 APPLICATION 067610 RxNorm APPLY TO AFFECTED AREA TOPICAL EVERY 12 HOURS Pantoprazole Sodium 40MG Oral Tablet, Enteric Coated 10/16/2017 Unknown BY MOUTH ONCE A DAY 40 MILLIGRAMS 236834 RxNorm TAKE 40 MILLIGRAMS BY MOUTH ONCE A DAY Florastor 250 MG Oral Capsule 10/16/2017 Unknown BY MOUTH TWICE A DAY 250 MILLIGRAMS RxNorm TAKE 250 MILLIGRAMS BY MOUTH TWICE A DAY Abilify 20MG Oral Tablet 10/16/2017 Unknown ORAL ONCE A DAY 20 MILLIGRAMS 092465 RxNorm TAKE 20 MILLIGRAMS ORAL ONCE A DAY Acetaminophe n 325MG Oral Tablet 10/16/2017 Unknown ORAL NEEDED EVERY 6 HOURS 650 MILLIGRAMS 827722 RxNorm TAKE 650 MILLIGRAMS ORAL NEEDED EVERY 6 HOURS Albuterol Sulfate 0.083% Inhalation Solution 10/16/2017 Unknown INHALAT ION NEEDED 4 TIMES A DAY 1 VIAL 468971 RxNorm 1 VIAL INHALATION NEEDED 4 TIMES A DAY Breo Ellipta 200MCG-25MCG /1Act Inhalation Powder 10/16/2017 Unknown INHALAT ION ONCE A DAY 1 PUFF 6522960 RxNorm 1 PUFF INHALATION ONCE A DAY Docusate 100MG Oral Capsule, Liquid Filled 10/16/2017 Unknown ORAL AT BEDTIME 200 MILLIGRAMS 5640259 RxNorm TAKE 200 MILLIGRAMS ORAL AT BEDTIME Vitamin D 30654XY Oral Capsule 10/16/2017 Unknown ORAL ONCE A WEEK 40017 UNITS 4507919 RxNorm TAKE 21341 UNITS ORAL ONCE A WEEK Zetia 10MG Oral Tablet 10/16/2017 Unknown ORAL AT BEDTIME 10 MILLIGRAMS 366447 RxNorm TAKE 10 MILLIGRAMS ORAL AT BEDTIME Melatonin 3 MG Oral Tablet 10/16/2017 Unknown BY MOUTH AT BEDTIME 3 MILLIGRAMS 313647 RxNorm TAKE 3 MILLIGRAMS BY MOUTH AT BEDTIME Furosemide 80MG Oral Tablet 03/13/2018 Unknown BY MOUTH ONCE A DAY 80 MILLIGRAMS 347593 RxNorm TAKE 80 MILLIGRAMS BY MOUTH ONCE [...] Date Status Code Code System PYELONEPHRITIS active 67879466 SNOME D-CT SUPRAVENTRICULAR TACHYCARDIA active 3992397 SNOMED-CT BED-RIDDEN active 038648952 SNOMED-CT SPRAINED RIGHT ANKLE, INITIAL ENCOUNTER active 28248585797247499 SNOME D-CT CELLULITIS OF RIGHT LEG active 507346 83729992568 SNOMED-CT Allergies and Adverse Reactions Allergy Substance Reaction Severity Start Date Concern Status Co de Code System PCN (penicillin) Hives (SNOMED-CT: 629569491) Moderate Active GLYBURIDE Moderate Active 4815 RxNorm CONTRAST MEDIA, IODINE RELATED Hives (SNOMED-CT: 334035067), SOB (SNOMED-CT: 464471846) Severe Active CIPRO Hives (SNOMED-CT: 001005575) Moderate Active 275044 RxNorm Plan of Treatment [facility] Established Patient 025 [facility] Established Patient 025 [facility] Established Patient 026 Encounters Encounter Diagnosis Start Date Code Code Sys tem Calculus of gallbladder with out cholecystitis without obstruction 05/03/2023 SNOMED-CT Personal Care Team Section Performer Name Performer Role Active Date Inactive TRAN [place] PCP - Primary care physician Imaging Narrative Notes
--- OUTSIDE RECORDS SUMMARY | 2025-04-21 15:50 | XMS_ITS ---
Author Organization Unknown Address [address] [place] [address] [phone] Phone Care Team Providers Care Steamfitter Apprentice Name Role Phone SYLWIA PELAEZ Attending Unavailable [...] DIFF - Collect Date/T kathryn: 12/15/2024 20:55 [facility] ID: [id number] [address] [place], [place], [id number] LOINC: 54776-4 Test Value Unit Reference Range Code Code System Flag WBC 6.8 10^3uL L=4.0 H=10.5 RBC 3.36 10^6uL L=4.20 H=5.40 L HEMOGLOBIN 9.3 g/dL L=12.0 H=16.0 718-7 LOINC L HEMATOCRIT 30.8 VOL% L=37.0 H=47.0 4544-3 LOINC L MCV 91.7 fL L=81.0 H=99.0 MCH 27.7 pg L=27.0 H=32.0 MCHC 30.2 g/dL L=32.0 H=36.0 L PLATELETS 199 10^3uL L=100 H=400 20278-1 LOINC RDW 15.9 % L=11.7 H=15.5 H %GRAN 68.7 % L=40.0 H=70.0 37423-1 LOINC %LYMPH 17.7 % L=20.0 H=45.0 736-9 LOINC L %MONO 8.2 % L=2.0 H=10.0 48834-3 LOINC %EOS 4.4 % L=0.0 H=6.0 713-8 LOINC %BASO 0.4 % L=0.0 H=3.0 706-2 LOINC #NEUT 4.7 10^3uL L=1.9 H=7.6 68883-7 LOINC #LYMPH 1.2 10^3uL L=0.9 H=4.9 55145-6 LOINC #MONO 0.6 10^3uL L=0.1 H=0.9 28893-9 LOINC #EOS 0.3 10^3uL L=0.0 H=0.6 712-0 LOINC #BASO 0.03 10^3uL L=0.00 H=0.10 96318-1 LOINC #IM GRANS 0.0 10^3uL L=0.0 H=7.0 87009-4 LOINC %IM GRANS 0.6 % L=0.0 H=5.0 76634-3 LOINC %NRB 0.0 L=0.0 H=0.2 72363-4 LOINC #NRB 0.000 L=0.000 H=0.012 89480-3 LOINC MANUAL DIFF NOT INDICATED RBC MORPH NOT INDICATED COMPREHENSIVE METABOLIC PANE L - Collect Date/Time: 12/15/2024 20:55 [facility] ID: [id number] [address] [place], [place], [phone] LOINC: 64741-0 Test Value Unit Reference Range Code Code [...] LOINC H ANION GAP 12 L=10 H=20 47986-6 LOINC OSMOLALITY 298 mOs/kG L=280 H=296 48370-8 LOINC H BUN/CREAT 20.7 3097-3 LOINC CALCIUM 9.8 mg/dL L=8.3 H=10.5 78019-5 LOINC AST 33 U/L L=15 H=46 1920-8 LOINC ALT 21 U/L L=9 H=72 1742-6 LOINC ALKALINE PHOS 182 U/L L=38 H=126 6768-6 LOINC H TOTAL BILI 0.5 mg/dL L=0.2 H=1.3 1975-2 LOINC ALBUMIN 3.8 G/dL L=3.5 H=5.0 1751-7 LOINC TOTAL PROTEIN 7.9 g/L L=6.3 H=8.2 2885-2 LOINC A/G RATIO 0.9 54043-2 LOINC AGE 74 00644-7 LOINC eGFR NON-AFR 39 ml/min eGFR AFR AMER 47 ml/min URINALYSIS w/Microscopy/C&S if indicated - Collect Date/Time: 12/15/2024 20:40 [facility] ID: [id number] [address] [place], [place], [phone] LOINC: 61710-6 Test Value Unit Reference Range Code Code System Flag UR SOURCE STRAIGHT CATH 76093-7 LOINC COLOR STRAW YELLOW 5778-6 LOINC CLARITY CLEAR CLEAR 29395-0 LOINC SPEC GRAVITY 1.010 1.000-1.030 5811-5 LOINC PH 7.0 5.0 - 6.5 5803-2 LOINC LEUK EST NEGATIVE NEGATIVE 5799-2 LOINC NITRATE NEGATIVE NEGATIVE PROTEIN NEGATIVE NEGATIVE 5804-0 LOINC GLUCOSE NEGATIVE NEGATIVE 93882-9 LOINC KETONES NEGATIVE NEGATIVE 49268-5 LOINC UROBILINOGEN 0.2 0.2 - 1.0 5818-0 LOINC BILIRUBIN NEGATIVE NEGATIVE 41575-4 LOINC BLOOD NEGATIVE NEGATIVE 37801-2 LOINC WBC 0-2 0 - 2 94791-5 LOINC RBC 0-2 0 - 2 01516-9 LOINC SQ EPITHELIAL RARE RARE-FEW BACTERIA FEW NONE SEEN 82132-7 LOINC MUCUS NONE SEEN NONE SEEN 8247-9 LOINC YEAST NOT PRESENT NOT PRESENT 12552-6 LOINC TRICHOMONAS NOT PRESENT NOT PRESENT 95405-4 LOINC SPERMATOZOA NOT PRESENT NOT PRESENT 02809-7 LOINC CASTS NOT PRESENT 01908-2 LOINC CRYSTALS NOT PRESENT 68038-7 LOINC CULTURE? NO 8251-1 LOINC DIAGNOSIS N/A Social History Type Status Start Date End Date Code Code Syst em Smoking History Never smoker (Never Smoked) 657053316 SNOMED CT Sex Female Gender Identity Female [id number] Medications Medication Start Date End Date Route Frequency Dose Code Code System Medication Instructions Home Meds dilTIAZem HCl 180MG Oral Capsule, Extended Release, 24 HR 06/03/2017 Unknown ORAL ONCE A DAY 180 MILLIGRAMS 042685 RxNorm TAKE 180 MILLIGRAMS ORAL ONCE A DAY Aspirin 81MG Oral Tablet, Enteric Coated 06/03/2017 Unknown ORAL ONCE A DAY 162 MILLIGRAMS 731900 RxNorm TAKE 162 MILLIGRAMS ORAL ONCE A DAY Gabapentin 300MG Oral Capsule 06/03/2017 Unknown ORAL THREE TIMES A DAY 300 MILLIGRAMS 119068 RxNorm TAKE 300 MILLIGRAMS ORAL THREE TIMES A DAY Levemir FlexPen 100U/1ML Subcutaneous Solution 06/03/2017 Unknown SUBCUTA NEOUS AT BEDTIME 33 UNITS 602997 RxNorm INJECT INTO 33 UNITS SUBCUTANEOUS AT BEDTIME Magnesium Oxide 400MG Oral Tablet 06/03/2017 Unknown ORAL ONCE A DAY 400 MILLIGRAMS 967070 RxNorm TAKE 400 MILLIGRAMS ORAL ONCE A [...] Unknown ORAL TWICE A DAY 20 MEQ 412597 RxNorm TAKE 20 MEQ ORAL TWICE A DAY Spironolacto ne 25MG Oral Tablet 06/03/2017 Unknown ORAL TWICE A DAY 25 MILLIGRAMS 087386 RxNorm TAKE 25 MILLIGRAMS ORAL TWICE A DAY Vitamin D3 2000 IU Oral Capsule, Liquid Filled 06/03/2017 Unknown ORAL ONCE A DAY 2000 UNITS 749957 RxNorm TAKE 2000 UNITS ORAL ONCE A DAY metFORMIN HCl 1000MG Oral Tablet 06/03/2017 Unknown ORAL TWICE A DAY WITH MEALS 1000 MILLIGRAMS 845491 RxNorm TAKE 1000 MILLIGRAMS ORAL TWICE A DAY WITH MEALS Nystatin 006435K/1GM Topical application Cream 10/16/2017 Unknown TOPICAL EVERY 12 HOURS 1 APPLICATION 172231 RxNorm APPLY TO AFFECTED AREA TOPICAL EVERY 12 HOURS Pantoprazole Sodium 40MG Oral Tablet, Enteric Coated 10/16/2017 Unknown BY MOUTH ONCE A DAY 40 MILLIGRAMS 605565 RxNorm TAKE 40 MILLIGRAMS BY MOUTH ONCE A DAY Florastor 250 MG Oral Capsule 10/16/2017 Unknown BY MOUTH TWICE A DAY 250 MILLIGRAMS RxNorm TAKE 250 MILLIGRAMS BY MOUTH TWICE A DAY Abilify 20MG Oral Tablet 10/16/2017 Unknown ORAL ONCE A DAY 20 MILLIGRAMS 328372 RxNorm TAKE 20 MILLIGRAMS ORAL ONCE A DAY Acetaminophe n 325MG Oral Tablet 10/16/2017 Unknown ORAL NEEDED EVERY 6 HOURS 650 MILLIGRAMS 938421 RxNorm TAKE 650 MILLIGRAMS ORAL NEEDED EVERY 6 HOURS Albuterol Sulfate 0.083% Inhalation Solution 10/16/2017 Unknown INHALAT ION NEEDED 4 TIMES A DAY 1 VIAL 052507 RxNorm 1 VIAL INHALATION NEEDED 4 TIMES A DAY Breo Ellipta 200MCG-25MCG /1Act Inhalation Powder 10/16/2017 Unknown INHALAT ION ONCE A DAY 1 PUFF 2148031 RxNorm 1 PUFF INHALATION ONCE A DAY Docusate 100MG Oral Capsule, Liquid Filled 10/16/2017 Unknown ORAL AT BEDTIME 200 MILLIGRAMS 0419814 RxNorm TAKE 200 MILLIGRAMS ORAL AT BEDTIME Vitamin D 97331RA Oral Capsule 10/16/2017 Unknown ORAL ONCE A WEEK 08356 UNITS 1177748 RxNorm TAKE 70946 UNITS ORAL ONCE A WEEK Zetia 10MG Oral Tablet 10/16/2017 Unknown ORAL AT BEDTIME 10 MILLIGRAMS 857850 RxNorm TAKE 10 MILLIGRAMS ORAL AT BEDTIME Melatonin 3 MG Oral Tablet 10/16/2017 Unknown BY MOUTH AT BEDTIME 3 MILLIGRAMS 516305 RxNorm TAKE 3 MILLIGRAMS BY MOUTH AT BEDTIME Furosemide 80MG Oral Tablet 03/13/2018 Unknown BY MOUTH ONCE A DAY 80 MILLIGRAMS 656424 RxNorm TAKE 80 MILLIGRAMS BY MOUTH ONCE [...] Date Status Code Code System PYELONEPHRITIS active 41718934 SNOME D-CT SUPRAVENTRICULAR TACHYCARDIA active 9679853 SNOMED-CT BED-RIDDEN active 451201550 SNOMED-CT SPRAINED RIGHT ANKLE, INITIAL ENCOUNTER active 05398639642882026 SNOME D-CT CELLULITIS OF RIGHT LEG active 819813 95430695027 SNOMED-CT Allergies and Adverse Reactions Allergy Substance Reaction Severity Start Date Concern Status Co de Code System PCN (penicillin) Hives (SNOMED-CT: 145481617) Moderate Active GLYBURIDE Moderate Active 4815 RxNorm CONTRAST MEDIA, IODINE RELATED Hives (SNOMED-CT: 880856399), SOB (SNOMED-CT: 366396927) Severe Active CIPRO Hives (SNOMED-CT: 896558995) Moderate Active 20340925 RxNorm Plan of Treatment Julio Established Patient 025 Aura Established Patient 025 Aura Established Patient 026 Encounters Encounter Diagnosis Start Date Code Code Sys tem Retention of urine, unspecified 12/15/2024 SNOMED-CT Personal Care Team Section Performer Name Performer Role Active Date Inactive TRAN Over[place] PCP - Primary care physician
--- OUTSIDE RECORDS SUMMARY | 2025-04-21 15:50 | XMS_ITS ---
Author Organization Unknown Address [address] [place] [phone] Phone Care Team Providers Care Lock Up Worker Name Role Phone HELIO DAVIDSON Attending Unavailable [...] em Smoking History Never smoker (Never Smoked) 339466840 SNOMED CT Sex Female Gender Identity Female [id number] Medications Medication Start Date End Date Route Frequency Dose Code Code System Medication Instructions Home Meds dilTIAZem HCl 180MG Oral Capsule, Extended Release, 24 HR 06/03/2017 Unknown ORAL ONCE A DAY 180 MILLIGRAMS 920642 RxNorm TAKE 180 MILLIGRAMS ORAL ONCE A DAY Aspirin 81MG Oral Tablet, Enteric Coated 06/03/2017 Unknown ORAL ONCE A DAY 162 MILLIGRAMS 174349 RxNorm TAKE 162 MILLIGRAMS ORAL ONCE A DAY Gabapentin 300MG Oral Capsule 06/03/2017 Unknown ORAL THREE TIMES A DAY 300 MILLIGRAMS 790644 RxNorm TAKE 300 MILLIGRAMS ORAL THREE TIMES A DAY Levemir FlexPen 100U/1ML Subcutaneous Solution 06/03/2017 Unknown SUBCUTA NEOUS AT BEDTIME 33 UNITS 991819 RxNorm INJECT INTO 33 UNITS SUBCUTANEOUS AT BEDTIME Magnesium Oxide 400MG Oral Tablet 06/03/2017 Unknown ORAL ONCE A DAY 400 MILLIGRAMS 294109 RxNorm TAKE 400 MILLIGRAMS ORAL ONCE A DAY Montelukast Sodium 10MG Oral Tablet 06/03/2017 Unknown ORAL AT BEDTIME 10 MILLIGRAMS 592464 RxNorm TAKE 10 MILLIGRAMS ORAL AT BEDTIME Polyethylene Glycol 17GM/1Dose Oral Powder for Solution 06/03/2017 Unknown ORAL NEEDED DAILY 17 GRAMS RxNorm TAKE 17 GRAMS ORAL NEEDED DAILY Potassium Chloride 10MEQ Oral Tablet, Extended Release 06/03/2017 Unknown ORAL TWICE A DAY 20 MEQ 007536 RxNorm TAKE 20 MEQ ORAL TWICE A DAY Spironolacto ne 25MG Oral Tablet 06/03/2017 Unknown ORAL TWICE A DAY 25 MILLIGRAMS 801222 RxNorm TAKE 25 MILLIGRAMS ORAL TWICE A DAY Vitamin D3 2000 IU Oral Capsule, Liquid Filled 06/03/2017 Unknown ORAL ONCE A DAY 2000 UNITS 668401 RxNorm TAKE 2000 UNITS ORAL ONCE A DAY metFORMIN HCl 1000MG Oral Tablet 06/03/2017 Unknown ORAL TWICE A DAY WITH MEALS 1000 MILLIGRAMS 608176 RxNorm TAKE 1000 MILLIGRAMS ORAL TWICE A DAY WITH MEALS Nystatin 061857X/1GM Topical application Cream 10/16/2017 Unknown TOPICAL EVERY 12 HOURS 1 APPLICATION 045245 RxNorm APPLY TO AFFECTED AREA TOPICAL EVERY 12 HOURS Pantoprazole Sodium 40MG Oral Tablet, Enteric Coated 10/16/2017 Unknown BY MOUTH ONCE A DAY 40 MILLIGRAMS 815909 RxNorm TAKE 40 MILLIGRAMS BY MOUTH ONCE A DAY Florastor 250 MG Oral Capsule 10/16/2017 Unknown BY MOUTH TWICE A DAY 250 MILLIGRAMS RxNorm TAKE 250 MILLIGRAMS BY MOUTH TWICE A DAY Abilify 20MG Oral Tablet 10/16/2017 Unknown ORAL ONCE A DAY 20 MILLIGRAMS 393514 RxNorm TAKE 20 MILLIGRAMS ORAL ONCE A DAY Acetaminophe n 325MG Oral Tablet 10/16/2017 Unknown ORAL NEEDED EVERY 6 HOURS 650 MILLIGRAMS 005935 RxNorm TAKE 650 MILLIGRAMS ORAL NEEDED EVERY 6 HOURS Albuterol Sulfate 0.083% Inhalation Solution 10/16/2017 Unknown INHALAT ION NEEDED 4 TIMES A DAY 1 VIAL 045731 RxNorm 1 VIAL INHALATION NEEDED 4 TIMES A DAY Breo Ellipta 200MCG-25MCG /1Act Inhalation Powder 10/16/2017 Unknown INHALAT ION ONCE A DAY 1 PUFF 4207302 RxNorm 1 PUFF INHALATION ONCE A DAY Docusate 100MG Oral Capsule, Liquid Filled 10/16/2017 Unknown ORAL AT BEDTIME 200 MILLIGRAMS 9744448 RxNorm TAKE 200 MILLIGRAMS ORAL AT BEDTIME Vitamin D 55738NR Oral Capsule 10/16/2017 Unknown ORAL ONCE A WEEK 75645 UNITS 1589478 RxNorm TAKE 28069 UNITS ORAL ONCE A WEEK Zetia 10MG Oral Tablet 10/16/2017 Unknown ORAL AT BEDTIME 10 MILLIGRAMS 566552 RxNorm TAKE 10 MILLIGRAMS ORAL AT BEDTIME Melatonin 3 MG Oral Tablet 10/16/2017 Unknown BY MOUTH AT BEDTIME 3 MILLIGRAMS 138839 RxNorm TAKE 3 MILLIGRAMS BY MOUTH AT BEDTIME Furosemide 80MG Oral Tablet 03/13/2018 Unknown BY MOUTH ONCE A DAY 80 MILLIGRAMS 857174 RxNorm TAKE 80 MILLIGRAMS BY MOUTH ONCE [...] Date Status Code Code System PYELONEPHRITIS active 63700347 SNOME D-CT SUPRAVENTRICULAR TACHYCARDIA active 5095377 SNOMED-CT BED-RIDDEN active 507376952 SNOMED-CT SPRAINED RIGHT ANKLE, INITIAL ENCOUNTER active 60114217462071701 SNOME D-CT CELLULITIS OF RIGHT LEG active 801960 34236465291 SNOMED-CT Allergies and Adverse Reactions Allergy Substance Reaction Severity Start Date Concern Status Co de Code System PCN (penicillin) Hives (SNOMED-CT: 974942246) Moderate Active GLYBURIDE Moderate Active 4815 RxNorm CONTRAST MEDIA, IODINE RELATED Hives (SNOMED-CT: 806235261), SOB (SNOMED-CT: 803166667) Severe Active CIPRO Hives (SNOMED-CT: 966715896) Moderate Active 251117 RxNorm Plan of Treatment Julio Established Patient [...]
--- OUTSIDE RECORDS SUMMARY | 2025-04-21 15:50 | XMS_ITS | Encounter Summary ---
Author Organization [facility] Address [facility] [place] [address] Care Team Providers Care Natural Science Manager Name Role Phone Marshall Cuevas MD Primary Care Provider Asuncion Tanner MD Unavailable Zain Betancur MD Unavailable [phone] Claudio Mendez MD Unavailable [phone] Encounter Details Date Type Department Care Team (Late Contact Info) Description 07/09/2017 Abstract [facility] CONVERSION [address] [place] [address] , Generic Conversion, Social History Tobacco Use [...] Info) Description 01/08/2026 1:20 PM CDT Appointment [facility] Office Building - Mammography [address] [place] [address] Marshall Cuevas MD [address] [place] [address] documented as of this encounter Visit Diagnoses Not on filedocumented in this encounter Additional Health Concerns Infection Onset Date Last Indicated 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 09/04/2019 09/04/2019 ESBL - Extended Spectrum Beta-lactamase 01/04/2025 1 05/15/2024 documented as of this encounter Care Teams Natural Science Manager Relationship Specialty Start Date End Date Marshall Cuevas MD [address] [place] [phone] PCP - General FAMILY PRACTICE 03/01/18 Asuncion Tanner MD [address] [place] [address] Consulting Physician PLASTIC SURGERY 12/23/20 Zain Betancur MD [address] [place] [address] Consulting Physician INTERVENTIONAL CARDIOLOGY 01/22/21 06/29/24 Claudio Mendez MD [address] [facility] [address] [place] [address] Physician INTERVENTIONAL CARDIOLOGY 06/29/24 documented as of this encounter
--- OUTSIDE RECORDS SUMMARY | 2025-04-21 15:50 | XMS_ITS ---
Author Organization [facility] Care Team Providers Care Offbearer Name Role Phone Kael Belle Unavailable Unavailable JEROME MOJICA Unavailable Allergies and adverse reactions Code CodeSystem Substance Reaction Severity StartDate Concern Status Cipro Unknown 08/26/2014 active 7984 RXNORM Penicillin Unknown 08/26/2014 active Care Team Name Role Address Phone Organization Dates JEROME MOJICA [address], [address], [place] (Office): : [facility] 08/26/2014 - 10/23/2014 Kael Belle [facility], [address], [place] (Office): : [facility] 08/26/2014 - 10/23/2014 Mental Status Section Date Assessment Total Score Description 10/23/2014 BIMS 15 cognitively int act PHQ-9 03 minimal depress ion 09/04/2014 BIMS 15 cognitively int act PHQ-9 03 minimal depress ion Insurance Providers Coverage Status Coverage Type Relationship to Subscriber Member Identifier Subscriber Identifier Group Identifier Payer Identifier and Other information Code: 1 Code System OID:[id number] .1.248463.3. 221.5 Code System Name: Source of Payment Typology (PHDSC) Display: Medicare Translation: Code: MB Code System: OID:2.16.840 .1.118685.6. 255.1336 Code System Name: Insurance Type Code ([id number]) Display Name: Medicare Part B 2014 Code: 349 Code System OID:2.16.840 .1.661090.3. 221.5 Code System Name: Source of Payment Typology (PHDMO) Display: Other Translation: Code: C1 Code System: OID:2.16.840 .1.731710.6. 255.1336 Code System Name: Insurance Type Code ([id number]) Display Name: Commercial Insurance Code: SELF Code System Name: HL7 RoleCode Code System OID:2.16.840.1 .318689.5.111 Display Name: Self [id number] Root: [id number] Payer Name: BCBS - DO NOT USE Address: BCBS Default Address Reason for Referral No Reasons for Referral Entered Social History Social History Observation Description Start Date End Date Code Code System Current Smoking Status Tobacco smoking consumption unknown 719166455 SNOMED CT Sex Assigned At Female 1950 90330-0 LOINC Gender Identity Sexual Orientation Vital Signs Code Code System Vitals Name Values and Units Timing Information 48591-0 LOINC Pain Level Value=0.0 10/23/2014 2339-0 LOINC Blood Sugar Xelax=167.0 Units=mg/dL 10/23/2014 8310-5 LOINC Body Temperature Value=97.9 Units= F 10/21/2014 9279-1 LOINC Respiratory Rate Value=18.0 Units=/m in 10/19/2014 8462-4 LOINC Blood Pressure-Diastolic Value=54 Un its=mmHg 10/19/2014 8480-6 LOINC Blood Pressure-Systolic Homct=963 Un its=mmHg 10/19/2014 8867-4 LOINC Heart rate Tbswj=543.0 Units=/min 10/19/2014 64069-4 LOINC Weight Ivdwc=349.0 Units=Lbs 01/2015 8302-2 LOINC Height Value=66.0 Units=Inches 09/15/2014
--- OUTSIDE RECORDS SUMMARY | 2025-04-21 15:50 | XMS_ITS ---
Author Organization Unknown Address [address] [place] [address] [phone] Phone Care Team Providers Care Escrow Officer Name Role Phone ADA Servin Attending Unavailable [...] em Smoking History Never smoker (Never Smoked) 831658699 SNOMED CT Sex Female Gender Identity Female [id number] [address] Medications Medication Start Date End Date Route Frequency Dose Code Code System Medication Instructions Home Meds dilTIAZem HCl 180MG Oral Capsule, Extended Release, 24 HR 06/03/2017 Unknown ORAL ONCE A DAY 180 MILLIGRAMS 199786 RxNorm TAKE 180 MILLIGRAMS ORAL ONCE A DAY Aspirin 81MG Oral Tablet, Enteric Coated 06/03/2017 Unknown ORAL ONCE A DAY 162 MILLIGRAMS 603727 RxNorm TAKE 162 MILLIGRAMS ORAL ONCE A DAY Gabapentin 300MG Oral Capsule 06/03/2017 Unknown ORAL THREE TIMES A DAY 300 MILLIGRAMS 087444 RxNorm TAKE 300 MILLIGRAMS ORAL THREE TIMES A DAY Levemir FlexPen 100U/1ML Subcutaneous Solution 06/03/2017 Unknown SUBCUTA NEOUS AT BEDTIME 33 UNITS 434484 RxNorm INJECT INTO 33 UNITS SUBCUTANEOUS AT BEDTIME Magnesium Oxide 400MG Oral Tablet 06/03/2017 Unknown ORAL ONCE A DAY 400 MILLIGRAMS 161272 RxNorm TAKE 400 MILLIGRAMS ORAL ONCE A DAY Montelukast Sodium 10MG Oral Tablet 06/03/2017 Unknown ORAL AT BEDTIME 10 MILLIGRAMS 947651 RxNorm TAKE 10 MILLIGRAMS ORAL AT BEDTIME Polyethylene Glycol 17GM/1Dose Oral Powder for Solution 06/03/2017 Unknown ORAL NEEDED DAILY 17 GRAMS RxNorm TAKE 17 GRAMS ORAL NEEDED DAILY Potassium Chloride 10MEQ Oral Tablet, Extended Release 06/03/2017 Unknown ORAL TWICE A DAY 20 MEQ 744978 RxNorm TAKE 20 MEQ ORAL TWICE A DAY Spironolacto ne 25MG Oral Tablet 06/03/2017 Unknown ORAL TWICE A DAY 25 MILLIGRAMS 399889 RxNorm TAKE 25 MILLIGRAMS ORAL TWICE A DAY Vitamin D3 2000 IU Oral Capsule, Liquid Filled 06/03/2017 Unknown ORAL ONCE A DAY 2000 UNITS 928863 RxNorm TAKE 2000 UNITS ORAL ONCE A DAY metFORMIN HCl 1000MG Oral Tablet 06/03/2017 Unknown ORAL TWICE A DAY WITH MEALS 1000 MILLIGRAMS 281033 RxNorm TAKE 1000 MILLIGRAMS ORAL TWICE A DAY WITH MEALS Nystatin 728095G/1GM Topical application Cream 10/16/2017 Unknown TOPICAL EVERY 12 HOURS 1 APPLICATION 691459 RxNorm APPLY TO AFFECTED AREA TOPICAL EVERY 12 HOURS Pantoprazole Sodium 40MG Oral Tablet, Enteric Coated 10/16/2017 Unknown BY MOUTH ONCE A DAY 40 MILLIGRAMS 095359 RxNorm TAKE 40 MILLIGRAMS BY MOUTH ONCE A DAY Florastor 250 MG Oral Capsule 10/16/2017 Unknown BY MOUTH TWICE A DAY 250 MILLIGRAMS RxNorm TAKE 250 MILLIGRAMS BY MOUTH TWICE A DAY Abilify 20MG Oral Tablet 10/16/2017 Unknown ORAL ONCE A DAY 20 MILLIGRAMS 433992 RxNorm TAKE 20 MILLIGRAMS ORAL ONCE A DAY Acetaminophe n 325MG Oral Tablet 10/16/2017 Unknown ORAL NEEDED EVERY 6 HOURS 650 MILLIGRAMS 752651 RxNorm TAKE 650 MILLIGRAMS ORAL NEEDED EVERY 6 HOURS Albuterol Sulfate 0.083% Inhalation Solution 10/16/2017 Unknown INHALAT ION NEEDED 4 TIMES A DAY 1 VIAL 467475 RxNorm 1 VIAL INHALATION NEEDED 4 TIMES A DAY Breo Ellipta 200MCG-25MCG /1Act Inhalation Powder 10/16/2017 Unknown INHALAT ION ONCE A DAY 1 PUFF 9452760 RxNorm 1 PUFF INHALATION ONCE A DAY Docusate 100MG Oral Capsule, Liquid Filled 10/16/2017 Unknown ORAL AT BEDTIME 200 MILLIGRAMS 6567523 RxNorm TAKE 200 MILLIGRAMS ORAL AT BEDTIME Vitamin D 96955IX Oral Capsule 10/16/2017 Unknown ORAL ONCE A WEEK 63572 UNITS 6140128 RxNorm TAKE 57491 UNITS ORAL ONCE A WEEK Zetia 10MG Oral Tablet 10/16/2017 Unknown ORAL AT BEDTIME 10 MILLIGRAMS 490382 RxNorm TAKE 10 MILLIGRAMS ORAL AT BEDTIME Melatonin 3 MG Oral Tablet 10/16/2017 Unknown BY MOUTH AT BEDTIME 3 MILLIGRAMS 902172 RxNorm TAKE 3 MILLIGRAMS BY MOUTH AT BEDTIME Furosemide 80MG Oral Tablet 03/13/2018 Unknown BY MOUTH ONCE A DAY 80 MILLIGRAMS 703280 RxNorm TAKE 80 MILLIGRAMS BY MOUTH ONCE [...] Date Status Code Code System PYELONEPHRITIS active 88022356 SNOME D-CT SUPRAVENTRICULAR TACHYCARDIA active 1698725 SNOMED-CT BED-RIDDEN active 901133177 SNOMED-CT SPRAINED RIGHT ANKLE, INITIAL ENCOUNTER active 29782184883403713 SNOME D-CT CELLULITIS OF RIGHT LEG active 318438 14996091283 SNOMED-CT Allergies and Adverse Reactions Allergy Substance Reaction Severity Start Date Concern Status Co de Code System PCN (penicillin) Hives (SNOMED-CT: 182367415) Moderate Active GLYBURIDE Moderate Active 4815 RxNorm CONTRAST MEDIA, IODINE RELATED Hives (SNOMED-CT: 247826597), SOB (SNOMED-CT: 050548421) Severe Active CIPRO Hives (SNOMED-CT: 035711834) Moderate Active 901071 RxNorm Plan of Treatment Julio Established Patient 025 Aura Established Patient 025 Aura Established Patient 026 Encounters Encounter Diagnosis Start Date Code Code Sys tem Other fecal abnormalities 12/03/2024 SN OMED-CT Personal Care Team Section Performer Name Performer Role Active Date Inactive TRAN Over[place] PCP - Primary care physician
--- OUTSIDE RECORDS SUMMARY | 2025-04-21 15:50 | XMS_ITS ---
Author Organization Unknown Address [address] [place] [address] [phone] Phone Care Team Providers [employer] Member Name Role Phone JUSTINO MALDONADO Attending Unavailable [...] em Smoking History Never smoker (Never Smoked) [id number] SNOMED CT Sex Female Gender Identity Female [id number] Medications Medication Start Date End Date Route Frequency Dose Code Code System Medication Instructions Home Meds dilTIAZem HCl 180MG Oral Capsule, Extended Release, 24 HR 06/03/2017 Unknown ORAL ONCE A DAY 180 MILLIGRAMS 403536 RxNorm TAKE 180 MILLIGRAMS ORAL ONCE A DAY Aspirin 81MG Oral Tablet, Enteric Coated 06/03/2017 Unknown ORAL ONCE A DAY 162 MILLIGRAMS 000662 RxNorm TAKE 162 MILLIGRAMS ORAL ONCE A DAY Gabapentin 300MG Oral Capsule 06/03/2017 Unknown ORAL THREE TIMES A DAY 300 MILLIGRAMS 127364 RxNorm TAKE 300 MILLIGRAMS ORAL THREE TIMES A DAY Levemir FlexPen 100U/1ML Subcutaneous Solution 06/03/2017 Unknown SUBCUTA NEOUS AT BEDTIME 33 UNITS 513194 RxNorm INJECT INTO 33 UNITS SUBCUTANEOUS AT BEDTIME Magnesium Oxide 400MG Oral Tablet 06/03/2017 Unknown ORAL ONCE A DAY 400 MILLIGRAMS 917807 RxNorm TAKE 400 MILLIGRAMS ORAL ONCE A DAY Montelukast Sodium 10MG Oral Tablet 06/03/2017 Unknown ORAL AT BEDTIME 10 MILLIGRAMS 910993 RxNorm TAKE 10 MILLIGRAMS ORAL AT BEDTIME Polyethylene Glycol 17GM/1Dose Oral Powder for Solution 06/03/2017 Unknown ORAL NEEDED DAILY 17 GRAMS RxNorm TAKE 17 GRAMS ORAL NEEDED DAILY Potassium Chloride 10MEQ Oral Tablet, Extended Release 06/03/2017 Unknown ORAL TWICE A DAY 20 MEQ 298953 RxNorm TAKE 20 MEQ ORAL TWICE A DAY Spironolacto ne 25MG Oral Tablet 06/03/2017 Unknown ORAL TWICE A DAY 25 MILLIGRAMS 264346 RxNorm TAKE 25 MILLIGRAMS ORAL TWICE A DAY Vitamin D3 2000 IU Oral Capsule, Liquid Filled 06/03/2017 Unknown ORAL ONCE A DAY 2000 UNITS 002276 RxNorm TAKE 2000 UNITS ORAL ONCE A DAY metFORMIN HCl 1000MG Oral Tablet 06/03/2017 Unknown ORAL TWICE A DAY WITH MEALS 1000 MILLIGRAMS 308083 RxNorm TAKE 1000 MILLIGRAMS ORAL TWICE A DAY WITH MEALS Nystatin 318743Y/1GM Topical application Cream 10/16/2017 Unknown TOPICAL EVERY 12 HOURS 1 APPLICATION 409058 RxNorm APPLY TO AFFECTED AREA TOPICAL EVERY 12 HOURS Pantoprazole Sodium 40MG Oral Tablet, Enteric Coated 10/16/2017 Unknown BY MOUTH ONCE A DAY 40 MILLIGRAMS 713137 RxNorm TAKE 40 MILLIGRAMS BY MOUTH ONCE A DAY Florastor 250 MG Oral Capsule 10/16/2017 Unknown BY MOUTH TWICE A DAY 250 MILLIGRAMS RxNorm TAKE 250 MILLIGRAMS BY MOUTH TWICE A DAY Abilify 20MG Oral Tablet 10/16/2017 Unknown ORAL ONCE A DAY 20 MILLIGRAMS 625851 RxNorm TAKE 20 MILLIGRAMS ORAL ONCE A DAY Acetaminophe n 325MG Oral Tablet 10/16/2017 Unknown ORAL NEEDED EVERY 6 HOURS 650 MILLIGRAMS 728741 RxNorm TAKE 650 MILLIGRAMS ORAL NEEDED EVERY 6 HOURS Albuterol Sulfate 0.083% Inhalation Solution 10/16/2017 Unknown INHALAT ION NEEDED 4 TIMES A DAY 1 VIAL 262502 RxNorm 1 VIAL INHALATION NEEDED 4 TIMES A DAY Breo Ellipta 200MCG-25MCG /1Act Inhalation Powder 10/16/2017 Unknown INHALAT ION ONCE A DAY 1 PUFF 5753842 RxNorm 1 PUFF INHALATION ONCE A DAY Docusate 100MG Oral Capsule, Liquid Filled 10/16/2017 Unknown ORAL AT BEDTIME 200 MILLIGRAMS 6323228 RxNorm TAKE 200 MILLIGRAMS ORAL AT BEDTIME Vitamin D 92898CG Oral Capsule 10/16/2017 Unknown ORAL ONCE A WEEK 35640 UNITS 1205176 RxNorm TAKE 10564 UNITS ORAL ONCE A WEEK Zetia 10MG Oral Tablet 10/16/2017 Unknown ORAL AT BEDTIME 10 MILLIGRAMS 747667 RxNorm TAKE 10 MILLIGRAMS ORAL AT BEDTIME Melatonin 3 MG Oral Tablet 10/16/2017 Unknown BY MOUTH AT BEDTIME 3 MILLIGRAMS 302666 RxNorm TAKE 3 MILLIGRAMS BY MOUTH AT BEDTIME Furosemide 80MG Oral Tablet 03/13/2018 Unknown BY MOUTH ONCE A DAY 80 MILLIGRAMS 277672 RxNorm TAKE 80 MILLIGRAMS BY MOUTH ONCE [...] Date Status Code Code System PYELONEPHRITIS active [id number] SNOME D-CT SUPRAVENTRICULAR TACHYCARDIA active 0150457 SNOMED-CT BED-RIDDEN active 651808578 SNOMED-CT SPRAINED RIGHT ANKLE, INITIAL ENCOUNTER active [id number] SNOME D-CT CELLULITIS OF RIGHT LEG active 892562 [id number] SNOMED-CT Allergies and Adverse Reactions Allergy Substance Reaction Severity Start Date Concern Status Co de Code System PCN (penicillin) Hives (SNOMED-CT: 678727635) Moderate Active GLYBURIDE Moderate Active 4815 RxNorm CONTRAST MEDIA, IODINE RELATED Hives (SNOMED-CT: 403149118), SOB (SNOMED-CT: 670379516) Severe Active CIPRO Hives (SNOMED-CT: 022927769) Moderate Active 885445 RxNorm Plan of Treatment Justino Established Patient 025 Justino Established Patient 025 Justino Established Patient 026 Personal Care Team Section Performer Name Performer Role Active Date Inactive TRAN [place] PCP - Primary care physician
--- OUTSIDE RECORDS SUMMARY | 2025-04-21 15:50 | XMS_ITS | Encounter Summary ---
Author Organization [facility] Address [facility] [place] [address] Care Team Providers Care Applications Development Consultant Name Role Phone Marshall Cuevas MD Primary Care Provider [phone] Asuncion Tanner MD Unavailable Zain Betancur MD Unavailable [phone] Claudio Mendez MD Unavailable [phone] Encounter Details Date Type Department Care Team (Late st Contact Info) Description 09/01/2023 [facility] [address] [place] [address] Zain Betancur MD [address] [place] [address] Social History Tobacco Use Types [...] with Friends and Family Never 06/29/2019 Attends [employer] Services Never 06/28 Active Member of [employer] [...] move on to questions 3-9 0 06/22/2021 [facility] - Occupational Stress [...] Assessment Author Status No 07/01/2019 12:00 AM MICROSCOPIST Acti ve * RETIRED Are you blind or do you have serious difficulty seeing, even when wearing glasses? 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 09/04/2019 09/04/2019 ESBL - Extended Spectrum Beta-lactamase 01/04/2025 1 05/15/2024 Assessment Noted Time PHQ-9 Depression Total Score: 0 06/22/19 10:52 AM MICROSCOPIST documented as of this encounter Care Teams Applications Development Consultant Relationship Specialty Start Date End Date Marshall Cuevas MD [address] [place] [phone] PCP - General FAMILY PRACTICE 03/01/18 Asuncion Tanner MD [address] [place] [address] Consulting Physician PLASTIC SURGERY 12/23/20 Zain Betancur MD [address] [place] [address] Consulting Physician INTERVENTIONAL CARDIOLOGY 01/22/21 06/29/24 Claudio Mendez MD [address] [facility] [address] [place] [address] Physician INTERVENTIONAL CARDIOLOGY 06/29/24 documented as of this encounter
--- OUTSIDE RECORDS SUMMARY | 2025-04-21 15:51 | XMS_ITS | Clinical Summary ---
Author Organization [facility] Address [address] [place] [address] Care Team Providers Care Sampling Theory Teacher Name Role Phone Marshall Cuevas MD Primary Care Provider [phone] Asuncion Tanner MD Unavailable Claudio Mendez MD Unavailable [phone] Allergies Active Allergy Reactions Criticality Noted Date [...] by mouth 6 (six) times a week. Ldg-Qduy-Tse-Tue rs-Fri-Sat Active bisacodyl (DULCOLAX) 10 MG suppository [...] 2 (two) times daily. Every evening and remediation project engineer Active clobetasol (TEMOVATE) 0.05 % external solution [...] Department Care Team Description 04/03/2025 10:43 AM [facility] [[email or web address]] - 04/03/2025 11:59 PM [facility] [[email or web address]] Hospital Encounter [facility] [address] [place] [address] Stewart Bobo MD Discharge Disposition: Home or Self Care (Routine Discharge) 04/03/2025 Travel 03/15/2025 6:05 PM SENIOR ENGINEERING TEAM LEADER - 03/15/2025 11:59 PM [facility] [[email or web address]] Hospital Encounter [facility] [address] [place] [address] Issac Pedersen MD Discharge Disposition: Home or Self Care (Routine Discharge) 01/29/2025 9:48 PM CDT - 01/30/2025 2:17 AM CDT Emergency [facility] [address] [place] [address] Psychiatric Problem Discharge Disposition: Half-Way Care 01/29/2025 Travel from Last 3 Months [...] drink = 0.6 oz pur e alcohol) [facility] Utilities Answer Date Recorded In the past 12 months has [facility] [employer], gas, oil, or water [employer] threatened to shut off services in your [...] with Friends and Family Never 06/29/2019 Attends [employer] Services Never 06/28 Active Member of Clubs [...] move on to questions 3-9 0 06/22/2021 [facility] - Occupational [...] any time in the past 12 m [facility], were you homeless or living in a long-term (including now)? No 12/08/2024 Comments No Sex [...] Info) Description 01/08/2026 1:20 PM CDT Appointment [facility] [place] [facility] - [facility] [address] [place] [address] [phone] Marshall Cuevas MD [address] [place] [phone] Health Maintenance Due Date Last Done [...] PEL WWO CON Routine 04/03/2025 12:39 PM SENIOR ENGINEERING TEAM LEADER Left lower quadrant abdominal mass URINE BACTERIA CULTURE Routine 03/15/2025 6:07 PM SENIOR ENGINEERING TEAM LEADER URINALYSIS Routine 03/15/2025 3:48 PM SENIOR ENGINEERING TEAM LEADER CT HEAD WO CON STAT 01/29/2025 10:51 [...] Routine 07/01/2019 4:55 AM CDT COLONOSCOPY Routine SENIOR ENGINEERING TEAM LEADER from Last 3 Months or Most Recently Relevant to Health Maintenance Results * MRI PEL WWO CON (04/03/2025 12:39 PM SENIOR ENGINEERING TEAM LEADER) Anatomical Region Laterality Modality Pelvis Magnetic Resonan ce 04/15/2025 11:0 9 AM SENIOR ENGINEERING TEAM LEADER Impressions 04/15/2025 11:22 AM SENIOR ENGINEERING TEAM LEADER IMPRESSION: 1. No distinct mass lesion or [...] 04/15/2025 11:09 AM Narrative 04/15/2025 11:22 AM SENIOR ENGINEERING TEAM LEADER [address] [place] [address] Examination: MRI PEL WWO CON Exam time: [...] External marker was placed by the performing sterile processing technologist overlying the region of concern. There [...] Procedure Note Azael Paz MD - 04/15/[address] [place] [address] Examination: MRI PEL WWO CON Exam time: [...] External marker was placed by the performing sterile processing technologist overlyingthe region of concern. There is [...] * (ABNORMAL) CULTURE, URINE (03/15/2025 6:07 PM SENIOR ENGINEERING TEAM LEADER) SPEC DESCRIPTION URINE, UNSPECIFIED 03/16/2025 6:07 PM SENIOR ENGINEERING TEAM LEADER [facility] SPECIAL REQUESTS NO SPECIAL REQUEST 03/16/2025 6:07 PM SENIOR ENGINEERING TEAM LEADER [facility] CULTURE RESULT EQUAL OR >100,000 CFU/mL ESCHERICHIA COLI, EXTENDED SPECTRUM BETA LACTAMASE COLD STRIP ROLLER (A) 03/20/2025 9:09 AM SENIOR ENGINEERING TEAM LEADER [facility] URINE URINE SPECIMEN / Unknown 03/15/2025 6:07 PM SENIOR ENGINEERING TEAM LEADER 03/16/2025 6:16 PM SENIOR ENGINEERING TEAM LEADER Narrative Organism Antibiotic Method Susceptibility Escherichia coli, extended spectrum beta lactamase news producer FOSFOMYCIN ROMIE (KB) Sensitive Escherichia coli, extended spectrum beta lactamase news producer AMPICILLIN ROMIE (VITEK) Resistant Escherichia coli, extended spectrum beta lactamase news producer AMOXICILLIN/CLAVULANIC A ROMIE (VITEK) Sensitive Escherichia coli, extended spectrum beta lactamase news producer AZTREONAM ROMIE (VITEK) Resistant Escherichia coli, extended spectrum beta lactamase news producer CEFEPIME ROMIE (VITEK) Resistant Escherichia coli, extended spectrum beta lactamase news producer CEFTRIAXONE ROMIE (VITEK) Resistant Escherichia coli, extended spectrum beta lactamase news producer CEFAZOLIN ROMIE (VITEK) Resistant Escherichia coli, extended spectrum beta lactamase news producer CIPROFLOXACIN ROMIE (VITEK) Sensitive Escherichia coli, extended spectrum beta lactamase news producer ESBL ROMIE (VITEK) POS: Resistant Escherichia coli, extended spectrum beta lactamase news producer ERTAPENEM ROMIE (VITEK) Sensitive Escherichia coli, extended spectrum beta lactamase news producer NITROFURANTOIN ROMIE (VITEK) Sensitive Escherichia coli, extended spectrum beta lactamase news producer GENTAMICIN ROMIE (VITEK) Resistant Escherichia coli, extended spectrum beta lactamase news producer IMIPENEM ROMIE (VITEK) Sensitive Escherichia coli, extended spectrum beta lactamase news producer LEVOFLOXACIN ROMIE (VITEK) INTERMEDIATE: Intermediate Escherichia coli, extended spectrum beta lactamase news producer MEROPENEM ROMIE (VITEK) Sensitive Escherichia coli, extended spectrum beta lactamase news producer PIPERACILLIN/TAZOBACTAM ROMIE (VITEK) Sensitive Escherichia coli, extended spectrum beta lactamase news producer TRIMETH-SULFAMETH. ROMIE (VITEK) Resistant Escherichia coli, extended spectrum beta lactamase news producer TETRACYCLINE ROMIE (VITEK) Sensitive us Issac Pedersen MD MICROBIOLOGY - GENERAL ORD ERABLES Final Result [facility] [address] [place] [address], [id number] * (ABNORMAL) URINALYSIS (03/15/2025 3:48 PM SENIOR ENGINEERING TEAM LEADER) COLOR (U) LIGHT ORANGE 03/16/2025 6:25 PM SENIOR ENGINEERING TEAM LEADER [facility] TRANSPARENCY CLOUDY 03/16/2025 6:25 PM SENIOR ENGINEERING TEAM LEADER [facility] SPECIFIC GRAVITY (U) 1.011 1.002 - 1.035 03/16/2025 6:25 PM SENIOR ENGINEERING TEAM LEADER [facility] U PH 6.5 5 - 8 03/16/2025 6:25 PM SENIOR ENGINEERING TEAM LEADER [facility] PROTEIN RANDOM (U) 30(A) NEGATIVE 03/16/2025 6:25 PM SENIOR ENGINEERING TEAM LEADER [facility] GLUCOSE (U) NEGATIVE NEGATIVE MG/DL 03/16/2025 6:25 PM SENIOR ENGINEERING TEAM LEADER [facility] KETONES MG/DL (U) NEGATIVE NEGATIVE 03/16/2025 6:25 PM SENIOR ENGINEERING TEAM LEADER [facility] BILIRUBIN (U) NEGATIVE NEGATIVE 03/16/2025 6:25 PM SENIOR ENGINEERING TEAM LEADER [facility] BLOOD (U) TRACE(A) NEGATIVE 03/16/2025 6:25 PM SENIOR ENGINEERING TEAM LEADER [facility] NITRITES NEGATIVE NEGATIVE 03/16/2025 6:25 PM SENIOR ENGINEERING TEAM LEADER [facility] UROBILINOGEN NORMAL 0 - 1 EU/DL 03/16/2025 6:25 PM SENIOR ENGINEERING TEAM LEADER [facility] LEUKOCYTES (U) 3+(A) NEGATIVE 03/16/2025 6:25 PM SENIOR ENGINEERING TEAM LEADER [facility] RBC/HPF 23(H) 0 - 3 /HPF 03/16/2025 6:25 PM SENIOR ENGINEERING TEAM LEADER [facility] WBC/HPF >182(H) 0 - 6 /HPF 03/16/2025 6:25 PM SENIOR ENGINEERING TEAM LEADER [facility] Comment:PLEASE CALL THE LAB WITHIN 2 HOURS IF ACTUAL NUMBER OF CELLS IS REQUIRED. BACTERIA (U) PRESENT /HPF 03/16/2025 6:25 PM SENIOR ENGINEERING TEAM LEADER [facility] SQUAMOUS EPITHELIALS 2 03/16/2025 6:25 PM SENIOR ENGINEERING TEAM LEADER [facility] WBC CLUMPS PRESENT 03/16/2025 6:25 PM SENIOR ENGINEERING TEAM LEADER [facility] URINE URINE SPECIMEN / Unknown 03/15/2025 3:48 PM SENIOR ENGINEERING TEAM LEADER Issac Pedersen MD URINE ORDERABLES Final Res ult [facility] [address] [place] [address], [id number] * CT HEAD WO CON (01/29/2025 10:51 [...] 11:12 PM Narrative 01/29/2025 11:16 PM CDT [address] [place] [address] EXAMINATION: CT HEAD WO CON, 01/29/2025 11:13 [...] Procedure Note Rogelio Acosta MD - 01/29/[address] [place] [address] EXAMINATION: CT HEAD WO CON, 01/29/2025 11:13 [...] - 145 MMOL/L 01/29/2025 10:40 PM CDT [facility] POTASSIUM S/P/B 4.2 3.5 - 5.1 MMOL/L 01/29/2025 10:40 PM CDT [facility] CHLORIDE S/P/B 102 98 - 107 MMOL/L 01/29/2025 10:40 PM CDT [facility] CO2 30.7 21.0 - 32.0 MMOL/L 01/29/2025 10:40 PM CDT [facility] GLUCOSE 94 70 - 99 MG/DL 01/29/2025 10:40 PM CDT [facility] Comment: FASTING GLUCOSE 100 TO 125 MG/DL IS CONSISTENT WITH IMPAIRED FASTING GLUCOSE. FASTING GLUCOSE >125 MG/DL IS CONSISTENT WITH DIABETES. RANDOM GLUCOSE >200 MG/DL WITH HYPERGLYCEMIC SYMPTOMS IS CONSISTENT WITH DIABETES. PER ADA GUIDELINES BUN 37(H) 6 - 24 MG/DL 01/29/2025 10:40 PM CDT [facility] CREATININE S/P/B 1.61(H) 0.55 - 1.02 MG/DL 01/29/2025 10:40 PM CDT [facility] CALCIUM S/P/B 10.4 8.4 - 10.5 MG/DL 01/29/2025 10:40 PM CDT [facility] BILIRUBIN TOTAL S/P/B 0.4 0.2 - 1.0 MG/DL 01/29/2025 10:40 PM [facility] Comment: THIS ASSAY IS NOT RECOMMENDED FOR PATIENTS UNDERGOING TREATMENT WITH ELTROMBOPAG DUE TO THE POTENTIAL FOR FALSELY ELEVATED RESULTS. ALKALINE PHOSPHATASE S/P/B 149(H) 55 - 142 U/L 01/29/2025 10:40 PM [facility] AST 16 15 - 37 U/L 01/29/2025 10:40 PM [facility] ALT 24 14 - 59 U/L 01/29/2025 10:40 PM [facility] TOTAL PROTEIN S/P/B 8.0 6.4 - 8.2 G/DL 01/29/2025 10:40 PM [facility] ALBUMIN S/P/B 3.0(L) 3.4 - 5.0 G/DL 01/29/2025 10:40 PM [facility] ANION GAP 6.3 5.0 - 15.0 MMOL/L 01/29/2025 10:40 PM [facility] OSMOLALITY (CALC) 296 MOSM/KG 025 10:40 PM [facility] Comment:REFERENCE RANGE NOT ESTABLISHED GFR ESTIMATE 33(L) >89 ML/MIN/1. 73 M2 01/29/2025 10:40 PM [facility] GFR NOTES GFR REFERENCE S: 01/29/2025 10:40 PM [facility] Comment: THE ESTIMATED GFR IS CALCULATED [...] CDT Dru Davis DO LABORATORY Final Result [facility] [address] [place] [address], * (ABNORMAL) CBC W/DIFF AUTOMATED (01/29/2025 10:09 PM CDT) WBC 9.31 4.00 - 10.80 x10'3/uL 01/29/2025 10:23 PM CDT [facility] RBC 3.86(L) 4.10 - 5.40 x10'6/uL 01/29/2025 10:23 PM CDT [facility] HGB 10.3(L) 12.0 - 16.0 G/DL 01/29/2025 10:23 PM CDT [facility] HCT 34.4(L) 36.0 - 47.0 % 01/29/2025 10:23 PM CDT [facility] MCV 89.1 78.0 - 100.0 FL 01/29/2025 10:23 PM CDT [facility] MCH 26.7(L) 27.0 - 31.0 PG 01/29/2025 10:23 PM CDT [facility] MCHC 29.9(L) 33.0 - 36.0 G/DL 01/29/2025 10:23 PM CDT [facility] RDW 15.6(H) 11.5 - 14.5 % 01/29/2025 10:23 PM CDT [facility] PLT 215 150 - 350 x10'3/uL 01/29/2025 10:23 PM CDT [facility] MPV 9.6 7.4 - 10.4 FL 01/29/2025 10:23 PM CDT [facility] CBC COMMENT NORMAL REFERENCE RANGE NOT ESTABLISHED FOR THE PROPORTIONAL LEUKOCYTE DIFFERENTIAL. 01/29/2025 10:23 PM CDT [facility] NEUTROPHILS % 71.4 % 01/29/2025 10:23 PM CDT [facility] LYMPHOCYTES % 17.3 % 01/29/2025 10:23 PM CDT [facility] MONOCYTES % 7.2 % 01/29/2025 10:23 PM CDT [facility] EOSINOPHILS % 3.3 % 01/29/2025 10:23 PM CDT [facility] BASOPHILS % 0.5 % 01/29/2025 10:23 PM CDT [facility] IMMATURE GRANS % 0.3 % 01/30/20 10:23 PM CDT [facility] NRBC % 0.0 % 01/29/2025 10:23 PM CDT [facility] ABS. NEUTROPHILS 6.64 1.60 - 8.30 x10'3/uL 01/29/2025 10:23 PM CDT [facility] ABS. LYMPHOCYTES 1.61 0.80 - 4.70 x10'3/uL 01/29/2025 10:23 PM CDT [facility] ABS. MONOCYTES 0.67 0.00 - 1.50 x10'3/uL 01/29/2025 10:23 PM CDT [facility] ABS. EOSINOPHILS 0.31 0.00 - 0.40 x10'3/uL 01/29/2025 10:23 PM CDT [facility] ABS. BASOPHILS 0.05 0.00 - 0.20 x10'3/uL 01/29/2025 10:23 PM CDT [facility] ABS. IMMATURE GRANULOCYTES 0.03 0.00 - 0.03 x10'3/uL 01/29/2025 10:23 PM CDT [facility] ABS. NUCLEATED RBC'S 0.00 0.00 - 0.01 x10'3/uL 01/29/2025 10:23 PM CDT [facility] 01/29/2025 10:0 9 PM CDT Dru Davis DO LABORATORY Final Result [facility] [address] [place] [address], [place] [phone] * MAGNESIUM (01/29/2025 10:09 PM CDT) MAGNESIUM 2.1 1.8 - 2.4 MG/DL 01/29/2025 10:40 PM CDT [facility] 01/29/2025 10:0 9 PM CDT us Dru Davis DO LABORATORY Final Result [facility] [address] [place] [address], [place] [phone] * (ABNORMAL) SALICYLATE (01/29/2025 10:09 PM CDT) SALICYLATES 1.1(L) 2.8 - 20.0 MG/DL 01/29/2025 10:55 PM CDT [facility] 01/29/2025 10:0 9 PM CDT us Dru Davis DO LABORATORY Final Result Performing Organization Address City/[facility]/ZIP Co de Phone Number [facility] [address] [place] [address], [place] [phone] * ETHANOL (01/29/2025 10:09 PM CDT) ALCOHOL S/P/B <0.003 <0.003 G/DL 01/29/2025 10:55 PM CDT [facility] 01/29/2025 10:0 9 PM CDT us Dru Davis DO LABORATORY Final Result Performing Organization Address City/[facility]/ZIP Co de Phone Number [facility] [address] [place] [address], [place] [phone] * (ABNORMAL) ACETAMINOPHEN (01/29/2025 10:09 PM CDT) ACETAMINOPHEN S/P/B 0.0(L) 10.0 - 30.0 MCG/ML 01/29/2025 10:55 PM CDT [facility] 01/29/2025 10:0 9 PM CDT Dru Davis DO LABORATORY Final Result [facility] [address] [place] [address], * DRUG SCREEN RAPID (01/29/2025 10:01 PM CDT) CANNABINOIDS SCREEN (U) NEGATIVE NEGATIVE 01/29/2025 10:58 PM CDT [facility] PHENCYCLIDINE PCP (U) NEGATIVE NEGATIVE 01/29/2025 10:58 PM CDT [facility] COCAINE METABOLITES (U) NEGATIVE NEGATIVE 01/29/2025 10:58 PM CDT [facility] METHAMPHETAMINE SCREEN (U) NEGATIVE NEGATIVE 01/29/2025 10:58 PM CDT [facility] OPIATE SCREEN (U) NEGATIVE NEGATIVE 025 10:58 PM CDT [facility] AMPHETAMINE SCREEN (U) NEGATIVE NEGATIVE 01/29/2025 10:58 PM CDT [facility] BENZODIAZEPINES SCREEN (U) NEGATIVE NEGATIVE 01/29/2025 10:58 PM CDT [facility] TRICYCLIC ANTIDEPRESSANT SCREEN (U) NEGATIVE NEGATIVE 01/29/2025 10:58 PM CDT [facility] METHADONE (U) NEGATIVE NEGATIVE 01/29/2025 10:58 PM CDT [facility] BARBITURATES SCREEN (U) NEGATIVE NEGATIVE 01/29/2025 10:58 PM CDT [facility] OXYCODONE SCREEN (U) NEGATIVE NEGATIVE 01/29/2025 10:58 PM CDT [facility] URINE TOX COMMENT THIS TEST METHODOLOGY IS DESIGNED AND OFFERED A RAPID TURNAROUND, QUALITATIVE SCREENING PROCEDURE TO AID IN THE IMMEDIATE MEDICAL ASSESSMENT OF PATIENTS SUSPECTED OF SUBSTANCE ABUSE. 01/29/2025 10:24 PM CDT [facility] Comment: CLINICAL CONSIDERATION AND PROFESSIONAL JUDGMENT MUST BE APPLIED TO ANY DRUG OF ABUSE TEST RESULT, BOTH POSITIVE AND NEGATIVE. CONFIRMATORY QUANTITATIVE RESULTS ARE AVAILABLE THROUGH OUR [facility]. URINE SPECIMEN / Unknown 01/29/2025 10:01 PM CDT us Dru Davis DO URINE ORDERABLES Final Resul t [facility] [address] [place] [address], * (ABNORMAL) URINALYSIS (01/29/2025 10:01 PM CDT) COLOR (U) STRAW 01/29/2025 10:47 PM CDT [facility] TRANSPARENCY SLIGHTLY CLOUDY 01/29/2025 10:47 PM CDT [facility] SPECIFIC GRAVITY (U) 1.010 1.000 - 1.025 01/29/2025 10:47 PM CDT [facility] U PH 6.0 5.0 - 8.0 01/29/2025 10:47 PM CDT [facility] LEUKOCYTES (U) TRACE(A) NEGATIVE 01/29/2025 10:47 PM CDT [facility] NITRITES NEGATIVE NEGATIVE 01/29/2025 10:47 PM CDT [facility] PROTEIN RANDOM (U) NEGATIVE NEGATIVE 01/29/2025 10:47 PM CDT [facility] GLUCOSE (U) NEGATIVE NEGATIVE 01/29/2025 10:47 PM CDT [facility] KETONES MG/DL (U) NEGATIVE NEGATIVE 01/29/2025 10:47 PM CDT [facility] UROBILINOGEN 0.2 <1.0 EU/DL 01/29/2025 10:47 PM CDT [facility] BILIRUBIN (U) NEGATIVE NEGATIVE 01/29/2025 10:47 PM CDT [facility] BLOOD (U) NEGATIVE NEGATIVE 01/29/2025 10:47 PM CDT [facility] WBC/HPF 5-10(A) 0 - 5 /HPF 01/29/2025 10:47 PM CDT [facility] EPI/LPF OCCASIONAL /LPF 01/29/2025 10:47 PM CDT [facility] BACTERIA (U) TRACE /HPF 01/29/2025 10:47 PM CDT [facility] URINE SPECIMEN OBTAINED BY CLEAN CATCH PROCEDURE / Unknown 01/29/2025 10:01 PM CDT us Dru Davis DO URINE ORDERABLES Final Resul t [facility] [address] [place] [address], * BONE DENSITY/DEXA (12/06/2024 10:03 AM CDT) Anatomical Region Laterality Modality Bone Bone Density 12/06/2024 10:1 2 AM CDT Impressions 12/06/2024 10:15 AM CDT Impression: 1. Within normal limits in the lumbar spine. 2. Consistent with osteoporosis in both hips. Ordered By: SHERLY MORENO Interpreted By: Cleve Pardo MD, 12/06/2024 10:12 AM Narrative 12/06/2024 10:15 [place] [address] Examination: DEXA Bone densitometry Clinical history: Postmenopausal. [...] Procedure Note Cleve Pardo MD - 12/06/[address] [place] [address] Examination: DEXA Bone densitometry Clinical history: Postmenopausal. [...] Pardo MD, 12/06/2024 10:12 AM Sherly Moreno CLINICAL STAFF ANESTHESIOLOGIST DEXA Final Result * (ABNORMAL) HEMOGLOBIN, GLYCATED (07/01/2019 4:55 AM CDT) HGB A1C 8.3(H) <5.7 % 07/01/2019 6:24 AM CDT [facility] ESTIMATED AVG GLUCOSE 192(H) 74 - 114 MG/DL 07/01/2019 6:24 AM CDT [facility] 07/01/2019 4:55 AM CDT us Zain Philip MD LABORATORY Final Result Performing Organization Address City/[facility] Co de Phone Number [facility] [address] [place] [address], [phone] * (ABNORMAL) LIPID PANEL (07/01/2019 4:55 AM CDT) CHOLESTEROL 123 MG/DL 07/01/2019 5:49 AM CDT [facility] Comment:DESIRABLE: <200 TRIGLYCERIDES 134 MG/DL 07/01/2019 5:49 AM CDT [facility] Comment:<150 NORMAL HDL 33(L) >49 MG/DL 07/01/2019 5:49 AM CDT [facility] LDL (CALCULATED) 63 MG/DL 07/01/19 5:49 AM CDT [facility] Comment:<100 OPTIMAL VLDL CALCULATION 27 MG/DL 07/01/19 5:49 AM CDT [facility] Comment:REFERENCE RANGE NOT ESTABLISHED CHOL/HDL RATIO 3.7 07/01/2019 5:49 AM CDT [facility] Comment:REFERENCE RANGE NOT ESTABLISHED LDL/HDL 1.9 07/01/2019 5:49 AM CDT [facility] Comment:REFERENCE RANGE NOT ESTABLISHED NON HDL CHOLESTEROL 90 MG/DL 07/01/2019 5:49 AM CDT [facility] Comment:REFERENCE RANGE NOT ESTABLISHED 07/01/2019 4:55 AM CDT us Zain Philip MD LABORATORY Final Result Performing Organization Address City/[facility]/ZIP Co de Phone Number [facility] [address] [place] [phone], [phone] * Colonoscopy ( SENIOR ENGINEERING TEAM LEADER) Narrative [employer] TO EPIC CONVERSION - SENIOR ENGINEERING TEAM LEADER Documented hx of procedure Procedure Note Jeffrey [...] Extended Spectrum Beta-lactamase 01/05/20 25 03/15/2025 [facility] [id number] [place] [phone] [employer] MED[employer] Advance Directives Documents on File Type Date Recorded Patient Skid Road Worker Expl anation DNR (Do Not Resuscitate) Documentation [...] 5:41 AM 01/14/2019 8:27 AM Care Teams Sampling Theory Teacher Relationship Specialty Start Date End Date Marshall Cuevas MD [address] [place] [phone] PCP - General FAMILY PRACTICE 03/01/18 Asuncion Tanner MD [address] [place] [address] Consulting Physician PLASTIC SURGERY 12/23/20 Claudio Mendez MD [address] [facility] [address] [place] [address] Physician INTERVENTIONAL CARDIOLOGY 06/29/24
[2025-04-21 16:10] LABS: Add Urine Microscopic? YES; Appearance Urine Sl Cloudy (Clear); Glucose Urine UA Negative (Negative); Hematocrit 30.3 % (35.0-42.0); Hemoglobin 8.9 g/dL (11.7-13.8); Immature Granulocyte Percent A 0.6 % (0.0-0.0); Leukocyte Esterase Ur 3+ LEU/UL (Negative); Lymphocytes Absolute Auto 1.12 K/mm3 (1.10-4.50); Mean Corpuscular HGB Conc 29.4 g/dL (32-36); Mean Corpuscular Hemoglobin 26.5 pg (27.0-31.0); Mean Corpuscular Volume 90.2 fL (78.0-102.0); Nitrate Urine Negative (Negative); Nucleated Red Blood Cells Absolute Auto 0.00 K/mm3 (0.00-0.00); Nucleated Red Blood Cells Perc 0.0 % (0-0.0); Platelet Count Result 196 K/mm3 (150-420); Red Blood Count 3.36 M/mm3 (4.20-5.40); Specific Grav Ur <= 1.005 (1.010-1.020); White Blood Count 8.1 K/mm3 (4.8-10.8)
[2025-04-21 16:22] LABS: Alanine Aminotransferase 21 U/L (6-35); Albumin Level 4.0 g/dL (3.5-5.1); Alkaline Phosphatase 160 U/L (38-126); Anion Gap 11 mmol/L (4-12); Aspartate Amino Transferase 22 U/L (14-36); Bilirubin,Total 0.4 mg/dL (0.2-1.3); Blood Urea Nitrogen 30 mg/dL (7-17); Calcium 9.8 mg/dL (8.4-10.2); Carbon Dioxide 33 mmol/L (22-30); Chloride 100 mmol/L (98-107); Estimated CRCL calculation 32 ml/min; Estimated Glomerular Filt Rate 30; Glucose 120 mg/dL (65-110); Osmolality Calculated 305 mOsm/kg (285-295); Potassium 4.4 mmol/L (3.4-5.0); Sodium 144 mmol/L (137-145); Total Protein 7.8 g/dL (6.3-8.2)
[2025-04-21] MEDS: cefTRIAXone 1 GM, LIDOCAINE 1% LOCAL INJ 2.1 ML IM (16:50)
[2025-04-21 17:05] VITALS: BP 147/68; PULSE 102; RESP 17; TEMP 36.3; O2SAT 94
== END 2025-04-21 17:05 ==
PROVIDERS: Emergency Provider Emergency Medicine; PCP Family Medicine
DX: N30.01 Acute cystitis with hematuria (principal); N19 Unspecified kidney failure
CPT/HCPCS: 36415; 80053; 81001; 83605; 85025; 96372; 99283; J0696; J2003